=== PATIENT | male | born 1945 | race Caucasian/White ===

== ENCOUNTER 2016-08-21 10:35 | Inpatient (IN) | payer MEDICARE, OTHER ==
[~2016-08-21] VITALS: Ht 185.4 cm; Wt 57.8 kg
--- NOTE | ~2016-08-21 | DS ---
PATIENT'S NAME: ELVIS VICENTE [facility] AGE: 71 Y [address] ROOM: [address] [address] LOCATION: GPCU ADMIT DATE: 08/21/2016 Discharge Summary DISCHARGE DATE: 08/28/2016 FAMILY PHYSICIAN: Phoenix Ling PA-C ATTENDING PHYSICIAN: Jerry MARY PRIMARY DIAGNOSES: 1. Bhz-GV-xfowmfi elevation myocardial infarction. 2. End-stage chronic obstructive pulmonary disease exacerbation with acute pulmonary infection. 3. Left lower lobe pneumonia. 4. Acute urinary retention. 5. Hemoptysis. 6. Severe protein-calorie malnutrition. 7. Chronic hypoxic respiratory failure. 8. Benign prostatic hypertrophy. 9. Coronary artery disease, status post anomalous left circumflex stenting. PRINCIPAL PROCEDURES DONE FOR THE PATIENT: Includes central line placement as well as PCI by Dr. Hernadez stent in the anomalous left circumflex. LABORATORY STUDIES: On admission, troponin on admission was 0.249, highest level of troponin obtained was 0.336, highest CK-MB obtained was 8.0, and pro- BNP was 3778. Lactic acid on admission was 4.6, prior to discharge was 1.6. ABG on admission pH 7.40, pCO2 45, pO2 92, and bicarb 27.9. WBC on admission was 11.9, highest level obtained was 16.4, prior to discharge was 12.1; H and H on admission was 13.9/41.5, prior to discharge was 10.3/28.8, and platelet was 192, was stable throughout the hospital stay. Creatinine on admission was 1.3, prior to discharge was 0.7. Sodium on admission was 136, prior to discharge was 132; potassium on admission was 4.5, prior to discharge was 4.7; bicarb was 28, prior to discharge was 32; calcium was 8.7, prior to discharge was 7.9; magnesium on admission was 2.0, prior to discharge was 1.9. Procalcitonin was less than 0.05. MICROBIOLOGY: Sputum culture, moderate Anila, moderate growth, normal respiratory ronald. Urine for Legionella antigen negative. Urine for streptococcal antigen was negative. Blood culture x2 sets, no growth after 5 days. RADIOLOGY: Chest x-ray reported as severe bolus emphysema. Findings suspicious for localized pneumonia at the left costophrenic sulcus. CT of the chest reported as very severe emphysema, left basilar interstitial opacity, suspicious for pneumonia, right apical nodular masslike lesion adjacent to the pleura, fibrotic scarring most likely, and repeat CT of the chest on the day of discharge is reported as partial clearing at the left base since prior PATIENT'S NAME: ELVIS VICENTE [facility] AGE: 71 Y [address] ROOM: [place] [address] LOCATION: GPCU ADMIT DATE: 08/21/2016 Discharge Summary DISCHARGE DATE: 08/28/2016 FAMILY PHYSICIAN: Phoenix Ling PA-C ATTENDING PHYSICIAN: Jerry MARY imaging, severe emphysematous changes in the lung parenchyma. Echocardiogram showed the ejection fraction 65% to 70% with normal internal dimensional wall thickness and wall motion. Right atrium is mildly dilated. There is PA pressure of 52. Moderate tricuspid regurgitation. Left heart cath anomalous circumflex taken off from the RCA with 99% lesion and 50% proximal LAD. HOSPITAL COURSE: For history of present illness, please take a look at the H and P, which was done by Dr. Mary. The patient was admitted to Progressive Care Unit and was managed for uxg-LG-vnbjqjk elevation GA given his presentation of chest pain. However, there was also concern for probable COPD exacerbation as the patient has end-stage COPD who is chronically on 2 L of oxygen; so, he was started empirically on ceftriaxone and doxycycline and also put on a high-dose of Solu-Medrol. He did get a Cardiology consult; and after he was evaluated by Cardiology, he was started on heparin drip. By the next day of the hospital stay, the patient was taken into the [facility] for a left heart cath, which revealed a significant lesion in the anomalous left circumflex, which was stented. Procedure was well-tolerated by the patient without intraoperative or postoperative complication. The patient remained on his baseline 2 L of nasal cannula; however, his functional status was very poor, he easily got short of breath with minimal exertion, he did have physical therapy as well as occupational therapy on-board. We continued him on his Rocephin and doxycycline; and after hospital day 5, his IV Rocephin was discontinued and his doxycycline was switched to p.o. He did also get a Pulmonary consult because of his CT report which shows a questionable right apical mass, but after the patient was reviewed by Dr. White, he felt change is most probably due to scarring and nothing needed to be done. He was continued to followed up with Cardiology who put him on regular cardiac medication, which included Plavix, Lipitor, as well as Cardizem. At around hospital day 4, the patient did complain of thick sputum and he reported that usually at home that he takes Mucomyst which helps to break this up and help him to cough up his phlegm. He did receive Mucomyst here for at least 2 days, which helped with his phlegm. He did also have some streaks of blood in his sputum for approximately 2-3 days after which it resolved spontaneously. It was recommended for the patient given his poor physical ability that he would benefit from a pulmonary rehab; however, most of the skilled facilities available do not provide pulmonary rehab inpatient most is as outpatient; so, plan was for the patient to 1st get some strengthening at [facility] after which he will be discharged home; and thereafter, he will proceed from then to get pulmonary rehab as outpatient. On the day of discharge, the patient's vital signs were stable. He remained on his 2 L of nasal cannula. Usually, he saturates between 97% to 99% of oxygen and he was discharged to [facility]. Two days prior to discharge, the patient did develop some acute urinary retention for which he had to have a Tyler catheter placed and was discharged on the Tyler catheter and he also did get a Urology consult and was started on Flomax. PATIENT'S NAME: ELVIS VICENTE [facility] AGE: 71 Y [address] ROOM: [address] [place] [address] [facility] ADMIT DATE: 08/21/2016 Discharge Summary DISCHARGE DATE: 08/28/2016 FAMILY PHYSICIAN: Phoenix Ling PA-C ATTENDING PHYSICIAN: Jerry MARY DISCHARGE MEDICATIONS: Includes: 1. Aspirin 325 mg p.o. daily. 2. Lipitor 80 mg p.o. daily. 3. Plavix 75 mg p.o. daily. 4. Cardizem 120 mg p.o. daily, new medication. 5. Lisinopril 10 mg p.o. daily, dose change. 6. Humibid 600 mg p.o. twice daily. 7. Doxycycline 100 mg p.o. twice daily, stop on August 30, 2016 to make a total of 10 days of antibiotics. 8. Prednisone taper 40 mg p.o. q.a.m. to end on August 292016 thereafter is prednisone 30 mg p.o. daily for 5 days then 20 mg p.o. daily for 5 days then 10 mg p.o. daily for 5 days then 5 mg p.o. daily for 5 days then stop. 9. DuoNebs every 4 hours p.r.n. 10. Tylenol 650 mg p.o. q.4 h. p.r.n. 11. Tessalon 100 mg p.o. 3 times daily p.r.n. 12. Colace 100 mg p.o. twice daily p.r.n. 13. Nitrostat 0.4 sublingual as needed p.r.n. Discharge time spent on this patient is about 35 minutes, which included coordinating discharge plan with the care management and also touching base with the doctor who will be taking care of the patient at [facility], Dr. Robin. WIN PERALTA MD ODO/modl /[id number] d: 08/29/16 0040 t: 08/31/16 1413, DISCHARGE SUMMARY
--- NOTE | ~2016-08-21 | CATH ---
Cardiac Diagnostic + PCI Report Demographics Patient Name CINTHIA Ellington Gender Male Date of 1945 Age 71 year(s) Patient Number [id number] Date of Study 08/22/2016 Visit Number [id number] Room Number G6[address] [place] [id number] Ht 185.42 cm Wt 53.9 kg Referring Alexis Primary Physician Physician Valeria KIM Performing Alexis Secondary Physician Physician Valeria KIM Diagnostic Alexis Assisting Physician Physician Valeria KIM Interventional Alexis Physician Machinist Class B Physician Valeria KIM Findings and Conclusions Diagnostic Findings and Conclusion Calcification involving proximal coronary arteries LVEDP 7 Anomalous circumflex taking off from RCA with 90-99% lesion 50% Proximal LAD Diagnostic Recommendations PCI of Circumflex Interventional Findings and Conclusion PCI of Circumflex with 0% residual stenosis Interventional Recommendations Dual antiplatelet therapy for 1 year Aggressive secondary preventative measures. Procedure Description The patient was brought to the diagnostic cardiac catheterization-EP laboratory in the fasting, non-sedated state. Informed consent was obtained in the written and verbal form after the risks and benefits were explained. The patient had no further questions and agreed to proceed. The planned puncture-incision site(s) were shaved and prepped with ChloraPrep and draped in the usual sterile manner. Conscious sedation, supplemental oxygen, and pain control medications were delivered by a registered nurse under physician guidance. Surface ECG rhythm, blood pressure measurement, and pulse oximetry were monitored throughout the procedure. Arterial access. The access site was infiltrated with lidocaine. The vessel was entered with the Seldinger technique. A sheath was advanced into the vessel and used for catheter placement. Selective left coronary angiography. A catheter was advanced into the left coronary vessel ostium under Fluoroscopic guidance. Contrast was injected by hand. Images were obtained in multiple projections. Selective right coronary angiography. A catheter was advanced into the right coronary vessel ostium under fluoroscopic guidance. Contrast was injected by hand. Images were obtained in multiple projections. Left heart catheterization. A catheter was advanced across the aortic valve to the left ventricle under fluoroscopic guidance. Resting hemodynamics were obtained. Angioplasty and Stent Placement: A guiding catheter was used to intubate the vessel. A 0.14 wire was then used to cross the lesion. A balloon catheter was placed across the lesion and inflated. The balloon catheter was then removed. A Drug Eluting Stent was placed and inflated. Post placement angiograms were performed. Arterial artery hemostasis was achieved. The patient was transferred to a regular nursing floor via cart accompanied by a nurse. The patient left the laboratory in stable condition. Diagnostic Cath Status: Urgent Interventional Cath Status: Urgent Procedure Procedure Type Diagnostic procedure:Angiography:, Coronary Angios /[facility] PCI procedure:Drug Eluting Coronary Stent:, CFX, PTCA:, CFX Indications: Chest pain. The procedure was explained in detail to the patient. Risks, complications and alternative treatments were reviewed. Written consent was obtained. Medications Reviewed with Patient prior to Procedure. Angiographic Findings Dominance: Right Cardiac Arteries and Lesion Findings LMCA: Minor Luminal Irregularities.Luminal irregularities LAD: LAD mild diffuse disease Lesion on Prox LAD: 50% stenosis . LCx: Minor Luminal Irregularities.Circumflex arises from Proximal RCA with luminal irregularities. Lesion on Prox CX: Mid subsection.99% stenosis 24 mm length reduced to 0%. Pre procedure OMER III flow was noted. Post Procedure OMER III flow was present. The guidewire cross was successful.The lesion was diagnosed as a high risk lesion.Culprit lesion. Comments:90-99% lesion Devices used - Luge Wire .014 x 182. Number of passes: 1. - Emerge Balloon 2.0 x 15. 2 inflation(s) to a max pressure of: 10 afsaneh. - Promus Premier 2.25 x 24 Stent. 1 inflation(s) to a max pressure of: 15 afsaneh. RCA: Minor Luminal Irregularities.Luminal irregularities with spasm Coronary Tree Procedure Data Procedure Date Date: 08/22/2016Start: 02:24 PMEnd: 03:39 PM Entry Locations - Retrograde Percutaneous access was performed through the Right Radial artery (Primary location). A 6 Fr sheath was inserted. Unsuccessful closure attempt was performed using: an R band. Hemostasis was successfully obtained using Mechanical Compression. Closure Comments: 14 cc air in the R band. Procedure Medications Order and Administration + + + +---------+ !Time !Medication !Dosage !Route ! + + + +---------+ !08/22/2016 !Fentanyl !25 mcg !I.V. ! !02:20 PM ! ! ! ! + + + +---------+ !08/22/2016 !Versed !1 mg !I.V. ! !02:22 PM ! ! ! ! + + + +---------+ !08/22/2016 !AMK Radial Cocktail: Nitroglycerin ! !I.A. ! !02:27 PM !100mcg, Verapamil 3 mg, Lidocaine 40mg! ! ! ! !(ACC_3) ! ! ! + + + +---------+ !08/22/2016 !Heparin (ACC_3) !5000 units !I.V. ! !02:28 PM ! ! !bolus ! + + + +---------+ 08/22/2016 !0.9% NaCl !200 ml !I.V. ! !02:34 PM ! ! !bolus ! + + + +---------+ !08/22/2016 !Alfred-Synephrine (Phenylephrine) !50 mcg !I.V. ! !02:41 PM ! ! !bolus ! + + + +---------+ !08/22/2016 !Nitroglycerin !200 mcg !I.C. ! !02:44 PM ! ! ! ! + + + +---------08/22/2016 !0.9% NaCl !200 ml !I.V. ! !02:46 PM ! ! !bolus ! + + + +---------08/22/2016 !Integrilin (ACC_7) !10 mg !I.V. ! !02:58 PM ! ! !bolus ! + + + +---------+ !08/22/2016 !0.9% NaCl !200 ml !I.V. ! !03:00 PM ! ! !bolus ! + + + +---------+ !08/22/2016 !Integrilin (ACC_7) !10 mg !I.V. ! !03:07 PM ! ! !bolus ! + + + +---------+ !08/22/2016 !Plavix (ACC_8) !600 mg !P.O. ! !03:21 PM ! ! ! ! + + + +---------+ 08/22/2016 !Heparin (ACC_3) ! !I.V. ! !03:22 PM ! ! !bolus ! + + + +---------+ !08/22/2016 !Integrilin (ACC_7) !2 !I.V. drip! !03:23 PM ! !mcg/kg/min ! ! + + + +---------+ Devices Used - A6 Fr. BS JR 4 Diag. Catheterwas used for:Right coronary angiography. - A6 Fr. BS JL 3.5 Diag. Catheterwas used for:Left coronary angiography. - A6 Fr. MPA1 90 cm Guide Catheterwas used for:Circumflex Intervention. Contrast Material - Isovue [id number] ml Fluoroscopy Time: Diagnostic: 14:42 minutes. Total: 14:42 minutes. Fluoroscopy Dose: Diagnostic: 980 mGy. Total: 980 mGy. Estimated Blood Loss: 25 ml. Additional [facility] PCI Information PCI Indication:PCI for high risk Non-STEMI or unstable angina. Medical History Allergies - Other:(Ibuprofen, amoxicillin). Risk Factors The patient risk factors include:hypercholesterolemia, treated hypertension, chronic lung disease, last creatinine: 1.3 mg/dl, creatinine clearance: 40.89 ml/min, dyslipidemia, Current/Recent(w/in 1 year) tobacco use, prior heart failure and prior NE . Admission Data Admission Date: 08/21/2016 Admission Time: 12:31 PM Admit Source: Emergency department Insurance Payors: Medicare. Admission Medications + +------+------+ + + + + !Medication !Dosage!Times !Last !Last !Administered !Comments ! ! ! !Per !Delivery !Delivery ! ! ! ! ! !Day !Date !Time ! ! ! + +------+------+ + + + + !DOTTIE ! ! ! ! !Yes ! ! !Inhibitor ! ! ! ! ! ! ! !(any) ! ! ! ! ! ! ! + +------+------+ + + + + !Aspirin ! ! ! ! !Yes ! ! !(any) ! ! ! ! ! ! ! + +------+------+ + + + + Clinical Evaluation Leading to Procedure - The patient's CAD presentation was assessed as: Non-STEMI. - The patient's anginal syndrome during the past two weeks was assessed as: Class IV according to the [place] Cardiovascular Society Classification System (CCS). Hemodynamics Condition: Rest O2 Consumption: Estimated: 204.78Heart Rate: 78 bpm Pressures (mmHg) +-----+ + !Site !Pressure ! +-----+ + !LV !117/-1 ,5 ! +-----+ + !LV !119/-1 ,8 ! +-----+ + !AO !99/50 (70) ! +-----+ + !LV !118/-1 ,7 ! +-----+ + !AO !97/50 (70) ! +-----+ + !AO !80/40 (56) ! +-----+ + !AO !107/52 (75) ! +-----+ + !AO !105/49 (73) ! +-----+ + Valve Gradients and Areas + +---------+---------+---------+ +---------+ + !Valve !Peak !Mean !Area !Index !Flow !Source ! + +---------+---------+---------+ +---------+ + !Aortic !16 !8 ! ! ! ! ! + +---------+---------+---------+ +---------+ + !Aortic !16 !8 ! ! ! ! ! + +---------+---------+---------+ +---------+ + Shunts Oxygen Values O2 Consumption 204.78 Signatures dtt: Valeria Espinoza dtkm: 08/22/16 1424 Physician Self Edit
--- NOTE | ~2016-08-21 | ECHO ---
Transthoracic Echocardiography Report (TTE) Demographics Patient Name ELVIS VICENTE Date of Study 08/21/2016 Patient Number [id number] Visit Number [id number] Date of 1945 Room Number G6304 Gender Male Number Age 71 year(s) Referring Tyra Edwards Mortgage Loan Computation Clerk Marnie Mendes, Physician RT,RVT,RDCS Physician Interpreting Alexis Shaw MD Hotel Front Desk Agent Physician Supervising Ordering Tyra Edwards MD/MLP Physician Nurse Stress Circus Trainer Conclusions Contractility Score Summary Normal Left Ventricular contractility was noted. Summary The estimated left ventricular ejection fraction is 65-70% with normal internal dimension,wall thickness and WM. The right atrium is mildly dilated. Large pleural effusion present. There is moderate pulmonary hypertension. The pulmonary pressure (RVSP) is 52 mmHg. Moderate tricuspid regurgitation by color Doppler. Procedure Type of Study TTE procedure:2D Echocardiogram, M-Mode, Doppler , Color Doppler. Procedure Date Date: 08/21/2016 Start: 04:11 PM Study Location: Inpatient Portable Technical Quality: Limited visualization due to body habitus. Indications:Dyspnea/SOB. Additional Indications:pneumonia Appropriate Use Criteria: 9 Patient Status: Routine HR: 69 bpm BP: 149/78 mmHg Allergies - Other:(Ibuprofen, amoxicillin). M-Mode/2D Measurements LV Diastolic Dimension: 3.61 cm LV Systolic Dimension: 2.31 cm LV Septum Diastolic: 0.72 cm LV PW Diastolic: 0.78 cm EF Estimated: 70 % LVOT VTI: 18.9 cm RV Base: 3.9 cm RV Mid: 3.4 cm RV Length: 4.7 cm TAPSE: 1.7 cm Doppler Measurements AV Peak Velocity: 1.08 m/s MV Peak E-Wave: 1.1 m/s AV Peak Gradient: 4.67 mmHg MV Peak A-Wave: 0.44 m/s AV Mean Gradient: 2 mmHg MV E/A Ratio: 2.48 LVOT Peak Velocity: 0.8 m/s MV P1/2t: 69 msec TR Velocity:2.52 m/s Estimated RAP:10 mmHg Estimated RVSP: 35 mmHg Estimated PASP: 35.4 mmHg E' Septal Velocity: 0.08 m/s MV E/E' Ratio: 13.4 Findings Left Ventricle Normal left ventricle size and function. Right Ventricle Normal right ventricle structure and function. Left Atrium Normal left atrial size. Right Atrium The right atrium is mildly dilated. Mitral Valve Normal mitral valve structure and function. Aortic Valve Not well visualized. Velocities were within normal limits. Tricuspid Valve There is moderate pulmonary hypertension. The pulmonary pressure (RVSP) is 52 mmHg. Moderate tricuspid regurgitation by color Doppler. Pulmonic Valve Not visualized. Pericardial Effusion No evidence of pericardial effusion. Miscellaneous Visualized portions of the aortic root and ascending aorta appear normal in size. Pleural Effusion Large pleural effusion present. Contractility Score LV regional wall motion:(0-Non visualized 1-Normal 2-Hypokinesis 3-Akinesis 4-Dyskinesis 5-Aneurysm) Signature dtt: Valeria Espinoza dtd: 08/21/16 [id number] Physician Self Edit
--- NOTE | ~2016-08-21 | HP ---
PATIENT'S NAME: ELVIS VICENTE [facility] AGE: 71 Y [address] ROOM: [address] [place] [address] LOCATION: GPCU ADMIT DATE: 08/21/2016 History & Physical DISCHARGE DATE: FAMILY PHYSICIAN: Phoenix Ling PA-C ATTENDING PHYSICIAN: Jerry ALMAGUER DATE OF SERVICE: CHIEF COMPLAINT: Shortness of breath. HISTORY OF PRESENT ILLNESS: The patient is a 71-year-old gentleman with a history of COPD, hypertension, and tobacco abuse, who presents here with 1-week history of productive cough and difficulty breathing. The patient reports that for the past week or so he has been having cough. He reports that initially his cough was white, but now turning to green to yellow. Also reports of dyspnea on exertion. The patient also reports that his cough has increased from his baseline with increasing sputum production and change in color of sputum. He denies fever, chills, abdominal pain, nausea, vomiting, sick contacts, diarrhea, or chest pain. The patient is usually seen at the and gets his care there. He reports that he has had workup done in [place] for heart issues, but does not remember what it was and reports that he had a stress test done at one point in [place], but did not finish it due to his worsening of shortness of breath. Of note, the patient lives by himself at [place] and is retired. Does not and does not have kids. MEDICAL HISTORY: COPD and hypertension. PAST SURGICAL HISTORY: The patient has multiple sinus surgeries. FAMILY HISTORY: Father of old age. Mother had diabetes mellitus, type 2. Brother has macular degeneration. SOCIAL HISTORY: The patient has 50 pack year smoking history. He currently smokes. He lives in [place]. He lives by himself. He is retired from [employer]. PATIENT'S NAME: ELVIS VICENTE [facility] AGE: 71 Y [address] ROOM: [id number] [place], [place] [address] LOCATION: GPCU ADMIT DATE: 08/21/2016 History & Physical DISCHARGE DATE: FAMILY PHYSICIAN: Phoenix Ling PA-C ATTENDING PHYSICIAN: Jerry ALMAGUER CURRENT MEDICATIONS: Medications being reconciled. REVIEW OF SYSTEMS: All systems have been reviewed and are negative except for what I mentioned in the HPI. PHYSICAL EXAMINATION: VITAL SIGNS: The patient is afebrile. Blood pressure 141/69 with a heart rate of 83, and saturating 97% on 2 L. GENERAL APPEARANCE: The patient is alert and awake, in mild respiratory distress. CHEST: No wheezing. No rales. The patient have poor air movement. HEENT: Head; normocephalic and atraumatic. Eyes; extraocular muscles intact. Nose; no nasal discharge. Ears; no ear discharge. Oral cavity; moist oral mucosa. HEART: Regular rate and rhythm. No murmurs, rubs, or gallops. ABDOMEN: Soft, nontender, and nondistended. Bowel sounds present. SKIN: Warm to touch. EXTREMITIES: Bilateral +2 pitting edema. MUSCULOSKELETAL: Range of motion intact. PHARMACY TECHNICIAN ASSISTANT: The patient is alert and oriented x3. Motor and sensory grossly intact. LABORATORY DATA: Lactate of 4.6. Troponin of 0.249, BNP of 3778. White blood cell count of 11.9, hemoglobin of 13.9, and platelets of 199,000. Glucose of 110, BUN of 14, creatinine 1.3, sodium of 136, potassium 4.5, and CO2 of 28. INR of 1. D- dimer 0.50, within normal limits. Chest x-ray shows severe bullous emphysema. Finding suspicious for localized pneumonia at the left costophrenic sulcus. Initial EKG shows atrial flutter with rapid ventricular response with 2:1 block with a heart rate of 143. Second EKG shows normal sinus rhythm with LA interval of 180, QTc of [address] and T-wave changes, with possible right atrial enlargement. ASSESSMENT AND PLAN: 1. Atz-JD-uybyetgrt myocardial infarction. The patient with risk factors of male, age of 71, history of tobacco use, and history of hypertension, who presents here with atrial flutter with a rapid ventricular response and chronic obstructive pulmonary disease exacerbation. The patient currently denies chest pain, or history of chest pain, however, troponin was noted to be elevated at 0.2. Etiology is demand versus unstable PATIENT'S NAME: ELVIS VICENTE [facility] AGE: 71 Y [address] ROOM: [id number] [place], [place] [address] LOCATION: GPCU ADMIT DATE: 08/21/2016 History & Physical DISCHARGE DATE: FAMILY PHYSICIAN: Phoenix Ling PA-C ATTENDING PHYSICIAN: Jerry ALMAGUER. Discuss the patient about the use of anticoagulation, heparin, since the patient was also in atrial fibrillation at the moment. The patient declines use of anticoagulation. Discussed with the patient for extended period about the risks and benefits of blood thinner. The patient understands the risks including stroke and worsening of unstable plaque which can contribute for coronary artery disease and myocardial infarction. The patient understands the risks and still declines the use of anticoagulation. We will start the patient on aspirin. We will give full dose of aspirin 325, now. We will start the patient on Lipitor 80 mg daily. We will trend cardiac enzymes. We will consult Cardiology. We will acquire echocardiogram to further investigate heart structure and wall motion abnormalities. 2. Community-acquired pneumonia. The patient has been experiencing close to a week history of productive cough with sputum production. Chest x-ray shows possible localized interstitial opacity at the left costophrenic sulcus. We will start the patient on doxycycline and ceftriaxone. The patient currently on amiodarone drip for atrial fibrillation with rapid ventricular response, thus we will hold QTc elongation medication including Levaquin and Z-Loyd. We will acquire blood culture and we will trend lactate until it normalizes. Blood culture and sputum cultures are pending. We will acquire a CT chest without contrast to further investigate the severity of pneumonia. 3. Acute chronic obstructive pulmonary disease exacerbation. Etiology most likely secondary to community-acquired pneumonia. We will start the patient on Solu-Medrol 40 mg daily and DuoNeb q.4 hours. To continue Solu-Medrol and bronchodilator. We will start also the patient on doxycycline. 4. Atrial flutter with rapid ventricular response. The patient presented with atrial fibrillation with rapid ventricular response with heart rates in 140s. The patient was noted to have labile blood pressure in the 90s and was given 1 L of IV bolus that improved his labile blood pressure. The patient was started on amiodarone drip and was given digoxin 0.5 mg IV. The patient currently back to normal sinus rhythm. The patient converted spontaneously to normal sinus rhythm. We will continue amiodarone drip. TSH pending. D-dimer is negative. The patient as noted above has declined for anticoagulation. Cardiology on board. 5. Severe protein-calorie malnutrition. Consult dietitian. 6. A preliminary CT report showing a stellar scar of the right lung apex, concerning for malignancy. The patient has a significant history of smoking. The patient has risk factors including smoking and age. The patient has a history of 58 years of pack year smoking. To follow up as outpatient with CT. We will discuss this findings with the patient. Also we will see if the patient can be seen by mill dresser during this stay. 7. Hypertension. We will hold blood pressure medication for now as PATIENT'S NAME: ELVIS VICENTE [facility] AGE: 71 Y [address] ROOM: [place] [address] [facility] AD[facility] DATE: 08/21/2016 History & Physical DISCHARGE DATE: FAMILY PHYSICIAN: Phoenix Ling PA-C ATTENDING PHYSICIAN: Jerry ALMAUGER patient's blood pressure was labile on admission. 8. Elevated BNP and lower extremity edema. Chest x-ray did not show any signs of vascular congestion, and I suspect this worsening shortness of breath is most likely secondary to community-acquired pneumonia and chronic obstructive pulmonary disease exacerbation. However, this elevation of BNP and lower extremity edema are most likely secondary to severe pulmonary hypertension. We will hold diuretics for now as patient had somewhat labile blood pressure on admission and was also given IV fluids. We will hold IV fluids for now and acquire echocardiogram to further investigate. Cardiology on board and awaiting for echocardiogram. 9. Tobacco counseling, greater than 3 minutes and less than 10 minutes were spent on tobacco counseling. The patient currently is not ready for tobacco cessation. We will offer nicotine patch. I have personally reviewed the patient's medical record including but not limited to, blood work and radiology report. Total time spent with the patient is greater than 60 minutes, more than 50% of the time spent in direct patient's care and patient consultation. The case was reviewed with the patient. Questions were answered to patient's satisfaction. Case was also reviewed with Dr. Dumont, ED physician. We will admit the patient. Code status on admission is full code. ROSINAMD GA RICHARDS/sunday /[id number] D: [id number] T: [id number] HISTORY & PHYSICAL
--- NOTE | ~2016-08-21 | CON ---
PATIENT'S NAME: ELVIS JENKINS [facility] AGE: 71 Y [address] ROOM: [id number] [place], [place] [address] LOCATION: GPCU ADMIT DATE: 08/21/2016 Consultation DISCHARGE DATE: FAMILY PHYSICIAN: Phoenix Ling PA-C ATTENDING PHYSICIAN: Jerry MARY DATE OF CONSULTATION: 08/21/2016 REFERRING PHYSICIAN: Valeria Espinoza MD CARDIOLOGY CONSULTATION HISTORY OF PRESENT ILLNESS: Dear Dr. Mary: Thank you for asking me to see Mr. Elvis Jenkins, who is a 71-year-old male patient, who has had cough since 2011 and carries a diagnosis of emphysema for quite a bit longer than that. [facility] Lately, the cough has actually been better. Unfortunately, he still smokes a little bit. He lives alone at home and generally takes care of himself. He denies having any trouble with chest pain usually. He notices some soreness in his chest from constantly coughing, but otherwise does not have any actual chest pains. He has been in functional class 4 for the past 30 to 40 days or so. There is no paroxysmal nocturnal dyspnea. He has been orthopneic for the 30 to 40 days. All his breathing got worse last Thursday, today being . It was the worst yesterday, and today, he had to stop frequently when he was even walking inside the house, and his breathing got much worse after he went to the bathroom so he called 911 and was brought to the emergency room, and was found to have a heart rate in the 140s due to atrial flutter with rapid ventricular response. He had known that his heart was beating at 140 to 150 beats per minute, because he does check his oxygen level with a small oximeter which reads his heart rate. Today was the first time that he has known to have a very fast heartbeat at 140 to 150 beats per minute. There is no actual true syncope. Today morning though he did come close to passing out. His ankles have not been swelling up that much. He does not feel the palpitations even the heart rate is 140. The patient has a history of hypertension and tobacco abuse. He denies diabetes, elevated cholesterol, or family history of premature coronary artery disease. He denies ND or angina or nitroglycerin use. He denies rheumatic fever, heart murmur, heart failure, dilated or enlarged heart, or any diagnosed cardiac arrhythmias. PATIENT'S NAME: ELVIS JENKINS [facility] AGE: 71 Y [address] ROOM: [address] [place], [place] [address] [facility] AD[facility] DATE: 08/21/2016 Consultation DISCHARGE DATE: FAMILY PHYSICIAN: Phoenix Ling PA-C ATTENDING PHYSICIAN: Jerry MARY MEDICATIONS: 1. Lisinopril 20 mg a day. 2. Aspirin 325 mg a day. ALLERGIES: MOLD, MILDEW, HOUSE DUST, AND YELLOWJACKET. PAST MEDICAL HISTORY: 1. Colon surgery in 2005. 2. Sinus surgeries, the last one of them was in 1997. 3. COPD. SOCIAL HISTORY: The patient is single. He denies abusing alcohol. His appetite has been stable. He does not use any recreational drugs. Sleep is variable. Weight is variable. He lost about 50 pounds between 2011 to 2014, the etiology of which is unclear. FAMILY HISTORY: No premature coronary artery disease. REVIEW OF SYSTEMS: A 12-point review of systems revealed the following positives: 1. Migraine secondary to pinched nerve in his neck. 2. Shingles 2 weeks ago. PHYSICAL EXAMINATION: VITAL SIGNS: On examination, his blood pressure is 110 over 80s, heart rate is in the 70s and regular on IV amiodarone, which brought the heart rate down from 140 to 70 beats per minute. Respirations are 18 and afebrile. GENERAL: He is constantly coughing a little bit. HEENT: Normal. NECK: Supple. No JVD, thyromegaly, lymphadenopathy, or carotid bruit. HEART: PMI is not well located. First and second heart sounds are regular. There are no added sounds or murmurs. CHEST: Clear to auscultation. ABDOMEN: Soft. EXTREMITIES: Reveal no edema. CENTRAL NERVOUS SYSTEM: Intact. ASSESSMENT: A 71-year-old male patient with end-stage chronic obstructive pulmonary disease possibly secondary to alpha-1 antitrypsin deficiency. He has had much worse shortness of breath today which turned out to be due to atrial flutter with rapid ventricular response as well as end-stage chronic obstructive PATIENT'S NAME: ELVIS JENKINS [facility] AGE: 71 Y [address] ROOM: [place] [address] [facility] ADMIT DATE: 08/21/2016 Consultation DISCHARGE DATE: FAMILY PHYSICIAN: Phoenix Ling PA-C ATTENDING PHYSICIAN: Jerry MARY pulmonary disease. He may also have underlying congestive heart failure. RECOMMENDATIONS: 1. We will continue to rule him out. 2. Add a small dose of diuretics. 3. We will get his echocardiogram and read that. 4. We will plan as to what to do tomorrow morning based on his enzymes and his echocardiogram. 5. He has a clear-cut enzyme elevation and especially, if there are clear- cut regional wall motion abnormalities, he may benefit from a catheterization procedure. Again I appreciate this opportunity to participate in the care of Mr. Simpson. MD BON ARNOLD/sunday /[id number] d: 08/21/16 2332 t: 08/26/16 1350, CONSULTATION REPORT
--- NOTE | ~2016-08-21 | ER ---
PATIENT'S NAME: [facility] AGE: 71 Y [address] ROOM: [place] [address] LOCATION: GPCU ADMIT DATE: 08/21/2016 ER/Outpatient Report DISCHARGE DATE: FAMILY PHYSICIAN: Phoenix Ling PA-C ATTENDING PHYSICIAN: Jerry ALMAGUER TIME OF ARRIVAL: 10:35. TIME SEEN: 10:45. IDENTIFICATION: A 71-year-old male. CHIEF COMPLAINT: Illness. HISTORY OF PRESENT ILLNESS: The patient is a 71-year-old female, brought in by ambulance from [place]. He has had shortness of breath and cough for the last 5 days, worsening today. Cough has been productive of clear to light yellow sputum. He has felt chilled, but no fever. No chest pain. He does have COPD and wears home O2 at 2 L per nasal cannula. PAST MEDICAL HISTORY: ALLERGIES: MOTRIN AND AMOXICILLIN. CURRENT MEDICATIONS: 1. Albuterol inhaler 2 puffs 4 times daily. 2. Albuterol nebulizer q.4 hours as needed. 3. Aspirin 325 mg daily. 4. Lisinopril 20 mg daily. 5. Tiotropium 18 mcg daily. 6. Furosemide 20 mg daily. 7. Gabapentin 300 mg daily. 8. KCl 10 mEq daily. MEDICAL PROBLEMS: 1. COPD. 2. Hypertension. PRIOR SURGERIES: PATIENT'S NAME: [facility] AGE: 71 Y [address] ROOM: [place] [address] LOCATION: GPCU ADMIT DATE: 08/21/2016 ER/Outpatient Report DISCHARGE DATE: FAMILY PHYSICIAN: Phoenix Ling PA-C ATTENDING PHYSICIAN: Jerry ALMAGUER Bowel perforation. SOCIAL HISTORY: The patient goes to the [place] [facility]. He lives in [place]. Tobacco use, 5 cigarettes per day. Alcohol use, denies. Drug use, denies. FAMILY HISTORY: No pertinent family history identified. REVIEW OF SYSTEMS: All systems reviewed and negative other than what is noted in the HPI. The patient states that sometimes his blood pressure goes from being really high to really low, same with his heart rate he said sometimes it is fast and sometimes it is low. Cardiology workup has been negative in the past PHYSICAL EXAMINATION: VITAL SIGNS: Weight 54.1 kg, blood pressure 103/56, pulse 143, respirations 18, temp 97.1, sats 98% on his usual 2 L per nasal cannula. GENERAL: A 71-year-old male, in no acute distress. HEENT: Head: Normocephalic, atraumatic. Ears: TMs translucent both ears. Eyes: Pupils equal and reactive to light and accommodation. Extraocular movements intact. Nose: Mucosa pink. No lesions. Mouth: No lesions. Pharynx benign. NECK: Supple. No lymphadenopathy. No thyromegaly. No JVD. No carotid bruits. LUNGS: Clear to auscultation. Breath sounds are equal. No rhonchi, wheezes, or rales. HEART: Tachycardia. No murmur, rub, or gallop. ABDOMEN: Bowel sounds present. Soft, nondistended. No hepatosplenomegaly. No palpable masses. Nontender. SKIN: [place], warm, and dry. No lesions or rashes noted. NEURO: The patient is alert and oriented x4. Cranial nerves 2 through 12 grossly intact. Motor strength 5/5 throughout. Sensation is intact to light touch. EXTREMITIES: Lower extremity edema 2+. No calf tenderness. LABORATORY DATA AND DIAGNOSTIC STUDIES: EKG obtained at 11:04, sinus tachycardia versus atrial flutter at 143 beats per minute. In lead V1, it looks like sinus tachycardia, but in leads II and III, there does appear to possibly be some flutter waves. Sodium 136, potassium 4.5, chloride 98, CO2 of 28, BUN 14, creatinine 1.3, blood sugar 110. Magnesium 2.0. CPK 54, CK-MB 6.3. Troponin I 0.249. ProBNP 3778. Hemoglobin 13.9, hematocrit 41.5, platelets 199, white count 11.9 with 85% neutrophils. INR 1.06. D-dimer 0.50. Lactate elevated at 4.6. Procalcitonin less than 0.05. Chest x-ray, 2 view, changes of COPD and PATIENT'S NAME: ELVIS VICENTE [facility] AGE: 71 Y [address] ROOM: [place] [address] LOCATION: GPCU ADMIT DATE: 08/21/2016 ER/Outpatient Report DISCHARGE DATE: FAMILY PHYSICIAN: Phoenix Ling PA-C ATTENDING PHYSICIAN: Jerry ALMAGUER bilateral effusions with left basilar interstitial opacity, pending Radiology over-read. ER COURSE: Saline lock was initiated on this patient and his blood pressure was in the low 100s and normal saline bolus was given at 500 mL bolus, then 150 mL/h. I did discuss the EKG and cardiac enzymes with Dr. Espinoza, who recommended amiodarone 150 mg IV over 30 minutes, then 1 mg an hour for 6 hours, then 0.5 mg an hour for 18 hours. The patient then had an episode of hypotension with a blood pressure of 79, he was given an additional 200 mL fluid bolus and his blood pressure improved. He was given Solu-Medrol 40 mg IV for COPD and initially Levaquin was ordered for his infiltrate; however, when we made the decision to start the amiodarone, the Levaquin was held. Dr. Tyra Edwards requested a non contrasted chest CT, which was obtained showing very severe emphysema, left basilar interstitial opacities suspicious for pneumonia, right apical nodular mass-like lesion adjacent to the pleura, fibrotic scarring most likely cannot exclude developing malignancy. IMPRESSION AND PLAN: 1. Atrial flutter with rapid ventricular response. Amiodarone initiated in the emergency room. Digoxin given per Dr. Tyra Edwards 0.5 mg IV. The patient converted to normal sinus rhythm. Repeat EKG at 1349, normal sinus rhythm at 75 beats per minute. 2. Chronic obstructive pulmonary disease exacerbation. Solu-Medrol 40 mg IV. O2 at 2 L per nasal cannula. 3. Congestive heart failure. ProBNP 3778. 4. Zyu-ZN-azwdgfuso OR. Heparin was recommended. The patient refused heparin. The patient takes a full strength aspirin daily already. Dr. Espinoza will consult. 5. Pneumonia, left base. Antibiotics as ordered per Dr. Tyra Edwards. We will include doxycycline. 6. Right apical nodular mass-like lesion, fibrotic scarring versus developing malignancy. Dr. Tyra Edwards was notified. The patient arrived to the emergency room at 10:35 and was taken to [facility] at 1500. 50 minutes of critical care were provided in the emergency room. MD SALLY RIVERO/sunday /[id number] d: 08/22/16 0031 t: 09/22/16 1949, OUTPATIENT REPORT
--- NOTE | ~2016-08-21 | CON ---
PATIENT'S NAME: ELVIS VICENTE [facility] AGE: 71 Y [address] ROOM: [place] [address] LOCATION: GPCU ADMIT DATE: 08/21/2016 Consultation DISCHARGE DATE: 08/28/2016 FAMILY PHYSICIAN: Phoenix Ling PA-C ATTENDING PHYSICIAN: Jerry Mary DATE OF CONSULTATION: 08/21/2016 REFERRING PHYSICIAN: Valeria Espinoza MD HISTORY OF PRESENT ILLNESS: This is a 71-year-old gentleman with a history of chronic obstructive pulmonary disease, hypertension, and tobacco abuse, who presented to the emergency department with 1-week history of productive cough and difficulty breathing. The patient reports that for the past week or so, he has been having cough. He reports initially his cough was dry, but then turned into a productive cough, expectorating whitish to yellow sputum. He also reports dyspnea on exertion. The patient also reports that his cough has increased from the baseline. He admits to heaviness into his chest with exertion. The patient also has not been using his inhalers. He is not compliant with his therapy. He uses what he thinks is right for him. He denied any nausea, vomiting, abdominal pain, diarrhea, or chest pain. He did have a cardiac workup in [place], but he does not remember what came out of it. PAST MEDICAL HISTORY: 1. COPD. 2. Hypertension. PAST SURGICAL HISTORY: He had multiple sinus surgeries, otherwise unremarkable. FAMILY HISTORY: Father of old age. Mother had diabetes mellitus type 2. Brother has macular degeneration. SOCIAL HISTORY: He has a history of 70-dhio-vifw smoking. He currently smokes. He lives in [place]. He lives by himself. He is retired from [employer]. CURRENT MEDICATIONS: Please refer to the medication reconciliation. REVIEW OF SYSTEMS: PATIENT'S NAME: ELVIS VICENTE [facility] AGE: 71 Y [address] ROOM: [place] [address] LOCATION: GPCU ADMIT DATE: 08/21/2016 Consultation DISCHARGE DATE: 08/28/2016 FAMILY PHYSICIAN: Phoenix Ling PA-C ATTENDING PHYSICIAN: Jerry Mary A 10-point review of systems was done and otherwise negative other than mentioned in the history of presenting illness. PHYSICAL EXAMINATION: GENERAL: Upon initial evaluation, the patient is sitting in bed, comfortable, does not appear in acute distress. VITAL SIGNS: Included blood pressure is 140/85 with a heart rate of 85 and saturation is 96% on 2 L. HEENT: Eyes are nonicteric. Pupils are reactive to light and accommodation. NECK: Supple. No lymphadenopathy. No jugular venous distention. LUNGS: Decreased bilateral air entry with crackles at the bases. HEART: S1 and S2. No murmurs, rubs, or gallops. ABDOMEN: Soft. Nontender. No palpable organs. LOWER EXTREMITIES: No edema, clubbing, or cyanosis. SKIN: Warm and dry. NEUROLOGIC: Roughly intact cranial nerves. Moving all extremities. LABORATORY DATA: At the time of admission reveals lactate of 4.6, troponin 0.249, and BNP of 3778. His white cell count of 11.9, hemoglobin of 13.9, and platelets of 199. Glucose of 110, BUN of 14, creatinine of 1.3, sodium of 136, potassium of 4.5, and CO2 of 28. INR of 1 and D-dimer of 0.5, within normal limits. IMAGING: His chest x-ray shows severe bullous emphysema, findings suspicious for localized pneumonia and left costodiaphragmatic sulcus. CT scan of the chest was done, which revealed scarring of the upper lobes. The patient did have a history of nodule and was followed in [place], but the results on x-rays are not available to me at the current point. IMPRESSION: 1. Chronic obstructive pulmonary disease with acute exacerbation. 2. Hypoxic respiratory failure, acute on chronic. 3. Tobacco abuse. 4. Upper lobe nodule and possible scarring. RECOMMENDATIONS: 1. At the current point, I do recommend that the patient get IV steroids, although he says he is allergic to it, given the fact that the patient has been on steroids for the past 24 hours with no significant allergic reaction. 2. We will start the patient on DuoNeb. 3. We will start the patient on albuterol. 4. Aggressive pulmonary toilet. 5. Smoking cessation counseling. PATIENT'S NAME: ELVIS VICENTE [facility] AGE: 71 Y [address] ROOM: [id number] [place], [place] [address] LOCATION[facility] ADMIT DATE: 08/21/2016 Consultation DISCHARGE DATE: 08/28/2016 FAMILY PHYSICIAN: Phoenix Ling PA-C ATTENDING PHYSICIAN: Jerry Mary 6. We will compare the CT scan with the previous for further evaluation of the right upper lobe scarring. 7. We will also recommend that the patient start with early ambulation. 8. I would also recommend that the patient followup with his Pulmonary Critical Care doctor. 9. There is a possibility that the patient will also need rehabilitation. 10. Cardiology evaluation would be appreciated. Thank you for allowing me to participate in the care of this patient. MD DARIN PAL/sunday /[id number] d: 09/25/161 t: 09/28/16 0909, CONSULTATION REPORT
[2016-08-21 11:28] LABS: BASOPHIL # 0.1 K/uL (0.0-0.2); BASOPHIL % 0.4 %; EOSINOPHIL % 0.3 %; HEMATOCRIT 41.5 % (37.0-53.0); HEMOGLOBIN 13.9 g/dL (11.0-16.0); IMMATURE GRANULOCYTE # 0.1 K/uL (0.0-0.3); IMMATURE GRANULOCYTE % 0.5 %; LYMPHOCYTE # 0.8 K/uL (0.8-4.0); LYMPHOCYTE % 6.6 %; MCH 32.3 pg (27.0-34.0); MCHC 33.5 gm/dL (32.0-36.5); MCV 96.3 fl (83.0-98.0); MONOCYTE # 0.8 K/uL (0.0-1.0); MONOCYTE % 7.1 %; MPV 10.5 fl (9.4-12.4); NEUTROPHIL # (ANC) 10.1 K/uL (1.4-9.0); NEUTROPHIL % 85.1 %; NRBC % 0 /100WBC (0-0.00); PLATELET COUNT 199 K/uL (150-450); RBC 4.31 M/uL (3.50-5.50); RDW-CV 11.8 % (11.9-14.6); WBC 11.9 K/uL (4.0-11.0)
[2016-08-21 11:35] LABS: INR - (THERAPEUTIC) 1.06 (0.92-1.07); PROTIME 11.1 SECONDS (9.8-11.4); PTT 31 SECONDS (25-32)
[2016-08-21 11:55] LABS: ALBUMIN 3.3 gm/dL (3.5-5.0); ANION GAP 14.5 (10.0-19.0); CALCIUM 8.7 mg/dL (8.5-10.5); CREATININE 1.3 mg/dL (0.6-1.3); POTASSIUM 4.5 mMol/L (3.7-5.1); TOTAL BILIRUBIN 0.8 mg/dL (0.0-1.5); TOTAL PROTEIN 6.7 g/dL (6.0-8.4)
[2016-08-21 14:00] LABS: BICARBONATE 27.9 mmol/L (18.0-23.0); PCO2 45 mmHg (35-45); PO2 92 mmHg (80-90)
[2016-08-21] MEDS ORDERED: PRINIVIL (ZESTR20 MG PO (16:36)
[2016-08-21] MEDS ORDERED: ASPIR-TRIN325 MG PO (16:37)
--- NOTE | 2016-08-21 17:34 | NUR ---
Pt is 71 y/o male admit for pneumonia/CHF/nonstemi for hospitalist. Pt alert and oriented x3. Resides at home by himself. Allergy to ibuprofen and amoxicillin. Red and yellow bracelets on. Pt has frequent harsh,hacking non productive cough. Long time smoker and current. 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 On IV antibiotics and IV fluids.
--- NOTE | 2016-08-21 19:01 | NUR ---
Significant Event:pt arrived from er this afternoon. AMIO drip at 1mg/kg/hr x6h lower at 1930 to .5mg/kg/hr. Pt has hacking cough, need sputum. Need UA. No c/o pain. Pt a&ox3. Pt voided this am, BM yest. Hourly bps. 02 2liters as at home. Antibiotics started. Dr Hernadez here and Dr White to see is notified. Follow up:
--- NOTE | 2016-08-22 05:20 | NUR ---
Significant Event: AMIODARONE GTT CONTINUES. HEPARIN GTT STARTED AT 600 UNITS/HR. REMAINS ON 2L O2 ALL NIGHT. HAS A BIG APPETITE OVERNIGHT. HEART RHYTHM REMAINS NSR ALL NIGHT. 20MG IV LASIX GIVEN AND ONLY 125ML OF UO NOTED. Follow up:
--- NOTE | 2016-08-22 15:48 | NUR ---
Attempted to see patient for DALTON Lopez, but staff had just finished a heart cath on him and were still in the room with him. Attempted to call patient's nurse Miaa to see if any family members are here with him, but she did not answer. Will try to meet with patient and or family if available.
--- NOTE | 2016-08-22 19:40 | NUR ---
PATIENT WENT DOWN FOR A HEART CATH TODAY RECIEVED ONE STENT RT WRIST ACCESSED. HEMATOMA WAS PRESENT UPON ARRIVAL PATIENT FINANCIAL COUNSELOR STAFF HELPED TO REDUCED HEMATOMA AND READJUST TR BAND. PATIENT WAS INSTRUCTED TO NOT USE RIGHT ARM.
[2016-08-23 03:28] LABS: HEMOGLOBIN 9.5 g/dL (11.0-16.0); MCV 94.5 fl (83.0-98.0); MPV 10.8 fl (9.4-12.4); RDW-CV 11.8 % (11.9-14.6)
[2016-08-23 03:30] LABS: HEMATOCRIT 27.3 % (37.0-53.0); MCH 32.9 pg (27.0-34.0); MCHC 34.8 gm/dL (32.0-36.5); PLATELET COUNT 142 K/uL (150-450); RBC 2.89 M/uL (3.50-5.50); WBC 16.4 K/uL (4.0-11.0)
[2016-08-23 03:47] LABS: ALBUMIN 2.5 gm/dL (3.5-5.0); ALK PHOS 64 IU/L (33-138); ALT 17 IU/L (12-78); ANION GAP 11.8 (10.0-19.0); AST 15 IU/L (10-40); BLOOD UREA NITROGEN 16 mg/dL (6-24); CALCIUM 7.6 mg/dL (8.5-10.5); CHLORIDE 102 mMol/L (96-110); CO2 26 mMol/L (22-32); ESTIMATED GFR (MDRD EQUATION) > 60; POTASSIUM 3.8 mMol/L (3.7-5.1); SODIUM 136 mMol/L (135-145); TOTAL PROTEIN 5.1 g/dL (6.0-8.4)
[2016-08-23 03:48] LABS: TOTAL BILIRUBIN 0.3 mg/dL (0.0-1.5)
[2016-08-23 04:49] LABS: ABSOLUTE NEUTROPHIL CT (ANC) 14.9 K/uL (1.4-9.0); BANDED NEUTROPHIL # 0.7 K/uL (0.0-0.1); BANDED NEUTROPHILS % 4 %; LYMPHOCYTE # 0.5 K/uL (0.8-4.0); LYMPHOCYTE % 3 %; SEGMENTED NEUTROPHIL # 14.3 K/uL (1.4-9.0); SEGMENTED NEUTROPHIL % 87 %
--- NOTE | 2016-08-23 05:15 | NUR ---
Significant Event:A/0X3. RESTED IN BED ALL OF SHIFT. TURNS SELF. AFEBRILE. VSS ON 2L. DENIES PAIN. IV TO L) HAND SL. SHUT OFF INTEGRILLIN AT 0300. R) RADIAL BRUSIED. SOFT. NO HEMATOMA. CSM WNL. GADEMARCUS AND MARICARMEN C/D/I. COLLINS PRESENT WITH 450 MLS OUT. NO BM THIS SHIFT. CONTINUE WITH IV ANTIBIOTICS. Follow up: CONTINUE WITH PLAN OF CARE.
--- NOTE | 2016-08-23 15:36 | NUR ---
Significant Event: A/O. VSS on home dose of 2L/NC. Denies pain. Up with 1 assist, SOB with activity. R) radial site remains ecchymotic but soft with 2+ radial pulse. Tyler to DD. 40 meq PO KCl given x1. Cardizem PO started today. Follow up: cont plan of care
[2016-08-24 03:53] LABS: BASOPHIL % 0.1 %; HEMATOCRIT 29.2 % (37.0-53.0); IMMATURE GRANULOCYTE # 0.1 K/uL (0.0-0.3); IMMATURE GRANULOCYTE % 0.7 %; LYMPHOCYTE # 0.6 K/uL (0.8-4.0); LYMPHOCYTE % 3.5 %; MCH 32.8 pg (27.0-34.0); MCHC 34.2 gm/dL (32.0-36.5); MCV 95.7 fl (83.0-98.0); MONOCYTE % 6.5 %; NEUTROPHIL # (ANC) 14.4 K/uL (1.4-9.0); NEUTROPHIL % 89.2 %; NRBC % 0 /100WBC (0-0.00); PLATELET COUNT 154 K/uL (150-450); RBC 3.05 M/uL (3.50-5.50); RDW-CV 12.2 % (11.9-14.6)
[2016-08-24 03:59] LABS: WBC 16.1 K/uL (4.0-11.0)
[2016-08-24 04:03] LABS: ANION GAP 10.8 (10.0-19.0); BLOOD UREA NITROGEN 14 mg/dL (6-24); CALCIUM 8.2 mg/dL (8.5-10.5); CHLORIDE 99 mMol/L (96-110); CO2 29 mMol/L (22-32); CREATININE 0.9 mg/dL (0.6-1.3); ESTIMATED GFR (MDRD EQUATION) > 60; MAGNESIUM 1.7 mg/dL (1.8-2.6); SODIUM 134 mMol/L (135-145)
[2016-08-24 04:04] LABS: POTASSIUM 4.8 mMol/L (3.7-5.1)
--- NOTE | 2016-08-24 05:35 | NUR ---
Significant Event: A/0X3. UP IN CHAIR BEGINNING OF SHIFT. TURNS SELF. AFEBRILE. VSS ON RA. IV TO L) HAND SL. PATIENT HAD C/O OF PAIN TO THE L) RIB AFTER COUGHING BUT REFUSED TYLENOL. PATIENT COUGHED UP A VERY SCANT AMOUNT OF BLOOD X1. PATIENT HAS RESTED OFF AND ON THIS SHIFT. GUADALUPE PATENT WITH 2,300 MLS OUT. NO BM THIS SHIFT. Follow up: CONTINUE WITH PLAN OF CARE
--- NOTE | 2016-08-24 15:36 | NUR ---
Significant Event: A/O. VSS on 2L. Denies pain. Up with 1 assist to chair, refused to ambulate in halls. Mucomyst started to help loosen secretions. Patient main complaint now is dry mouth. Popsicle and ice chips provided. Pulmonary rehab order today and CM to find placement to swingbed. Follow up: possible dismissal tomorrow or Thursday pending placement.
[2016-08-25 03:36] LABS: BASOPHIL % 0.1 %; HEMATOCRIT 29.6 % (37.0-53.0); HEMOGLOBIN 10.2 g/dL (11.0-16.0); IMMATURE GRANULOCYTE # 0.1 K/uL (0.0-0.3); IMMATURE GRANULOCYTE % 0.9 %; LYMPHOCYTE # 0.5 K/uL (0.8-4.0); LYMPHOCYTE % 3.6 %; MCH 32.6 pg (27.0-34.0); MCHC 34.5 gm/dL (32.0-36.5); MCV 94.6 fl (83.0-98.0); MONOCYTE # 1.1 K/uL (0.0-1.0); MONOCYTE % 8.2 %; MPV 10.8 fl (9.4-12.4); NEUTROPHIL % 87.2 %; NRBC % 0 /100WBC (0-0.00); PLATELET COUNT 173 K/uL (150-450); RBC 3.13 M/uL (3.50-5.50); RDW-CV 12.2 % (11.9-14.6); WBC 13.8 K/uL (4.0-11.0)
[2016-08-25 03:51] LABS: ANION GAP 12.4 (10.0-19.0); BLOOD UREA NITROGEN 13 mg/dL (6-24); CALCIUM 7.8 mg/dL (8.5-10.5); CHLORIDE 97 mMol/L (96-110); CO2 27 mMol/L (22-32); CREATININE 0.7 mg/dL (0.6-1.3); ESTIMATED GFR (MDRD EQUATION) > 60; POTASSIUM 4.4 mMol/L (3.7-5.1); SODIUM 132 mMol/L (135-145)
--- NOTE | 2016-08-25 05:40 | NUR ---
Significant Event: A/0X3. AFEBRILE. VSS ON 2L. GETS SOB WITH ACTIVITY. DENIES PAIN. IV TO L) FA SL. CONTINUE WITH IV ANTIBIOTICS. COLLINS PRESENT WITH 2350 MLS OUT. NO BM THIS SHIFT. PULMONARY REHAB TO SEE TODAY. Follow up: CONTINUE WITH PLAN OF CARE
--- NOTE | 2016-08-25 17:25 | NUR ---
Dr. Felton talked with me earlier today and he says patient needs to go to skilled facility where he can do pulm. rehab. VMM left for Adm Coord at [place] . Call back from [facility] at [place] and they do not have pulm rehab. Talked to patient this afternoon regarding the above. He lives alone near [place]. He says OK to look in the [facility] area. He nows he needs to go to a facility for awhile and work on pulm rehab. Will continue to make referrals. Will follow.
--- NOTE | 2016-08-25 19:23 | NUR ---
PATIENT UP TO CHAIR W/ 1 ASSIST. HAD EPISODE OF SEVERE DYSPNEA THIS AM, SBP 200'S. PATIENT RECEIVED BREATHING TREATMENT AND DR PERALTA ROUNDED ON PATIENT AT THAT TIME. RECHECK BP 155/76, SATS MAINTAINED GREATER THAN 90% AND PATIENT CONTINUED ON 2L NC. IV ANTIBIOTICS CHANGED TO PO. LABS ORDERED FOR AM.
[2016-08-26 04:42] LABS: HEMATOCRIT 30.4 % (37.0-53.0); HEMOGLOBIN 10.5 g/dL (11.0-16.0); IMMATURE GRANULOCYTE # 0.1 K/uL (0.0-0.3); IMMATURE GRANULOCYTE % 0.9 %; LYMPHOCYTE # 0.7 K/uL (0.8-4.0); LYMPHOCYTE % 5.9 %; MCH 32.5 pg (27.0-34.0); MCHC 34.5 gm/dL (32.0-36.5); MCV 94.1 fl (83.0-98.0); MONOCYTE # 0.8 K/uL (0.0-1.0); MONOCYTE % 7.1 %; MPV 10.7 fl (9.4-12.4); NEUTROPHIL # (ANC) 9.6 K/uL (1.4-9.0); NEUTROPHIL % 86.1 %; NRBC % 0 /100WBC (0-0.00); PLATELET COUNT 199 K/uL (150-450); RBC 3.23 M/uL (3.50-5.50); WBC 11.1 K/uL (4.0-11.0)
[2016-08-26 05:02] LABS: ANION GAP 8.7 (10.0-19.0); BLOOD UREA NITROGEN 11 mg/dL (6-24); CALCIUM 7.9 mg/dL (8.5-10.5); CHLORIDE 96 mMol/L (96-110); CO2 32 mMol/L (22-32); CREATININE 0.7 mg/dL (0.6-1.3); ESTIMATED GFR (MDRD EQUATION) > 60; MAGNESIUM 1.9 mg/dL (1.8-2.6); POTASSIUM 4.7 mMol/L (3.7-5.1); SODIUM 132 mMol/L (135-145)
--- NOTE | 2016-08-26 05:12 | NUR ---
Significant Event: Continues to be alert and oriented. VSS. Afebrile. 2L NC. productive cough continues. Up with 1 assist. Rested at times. Cooperative with cares. Follow up: Continue to monitor
--- NOTE | 2016-08-26 10:53 | NUR ---
A - PT SCREENED D/T LOS. NA+ 132, GLU 102, BUN/CALENDERER 11/0.7. PT W/ 1-2+ BLE EDEMA. DIET: CARDIAC, REFUSED TO 50% PER INTAKE RECORD ALTHOUGH PT REPORTS EATING EVERYTHING. PT DISLIKES CARDIAC DIET, REQUESTS CHANGE TO REGULAR. NFPE REVEALS SEVERE MUSCLE WASTING TO TEMPLES, CLAVICLES, SCAPULA AND MODERATE TO CALVES. SEVERE FAT WASTING TO FAT PADS AND TRICEPS. FINDINGS CONSISTENT W/ SEVERE MALNUTRITION. PT RECEPTIVE TO ENSURE TID. D - AT RISK W/ SEVERE MALNUTRITION R/T INADEQUATE ENERGY AND PROTEIN INTAKE AEB RESULTS OF NFPE. I - GOAL: 75% OR BETTER INTAKE BY DISMISSAL. M/E - 1) REQUESTED DIET BE LIBERALIZED TO REGULAR. 2) WILL SEND ENSURE TID W/ MEALS. 3) F/U IN 2-4 DAYS.
--- NOTE | 2016-08-26 15:22 | NUR ---
Talked to peers and facilities and skilled facilities do not offer pulm. rehab. Patient would be able to have therapies and monitoring of O2 sats with activity if ordered by physician. Talked to Dr. Felton and updated him. Will look at skilled facilities. Spoke with Kinjal at [facility] and they would be willing to consider him but needs to know which Dr. he would want to follow him. Talked to patient and he says he prefers to not have certain Drs at [place] follow him. After discussion of options with him, he says he prefers to go to a skilled facility in [place] and have [place] Drs follow him. Gave him choices of [place] facilities and he says to start with [facility]. Called and spoke with Joya at [facility] and referral faxed to them. Will follow.
--- NOTE | 2016-08-27 04:59 | NUR ---
Patient A/Ox3. VSS on 2L per home settings. One assist. IV to rt forearm saline locked. Lungs clear/diminished. Bowel sounds present, 1 BM this shift. No complaints. Voiding well since orona DC'd. Home vs placement.
[2016-08-27 05:53] LABS: EOSINOPHIL # 0.1 K/uL (0.0-0.5); EOSINOPHIL % 0.4 %; HEMATOCRIT 31.9 % (37.0-53.0); IMMATURE GRANULOCYTE # 0.1 K/uL (0.0-0.3); IMMATURE GRANULOCYTE % 0.6 %; LYMPHOCYTE % 8.4 %; MCH 32.2 pg (27.0-34.0); MCHC 34.5 gm/dL (32.0-36.5); MCV 93.3 fl (83.0-98.0); MONOCYTE # 1.1 K/uL (0.0-1.0); MONOCYTE % 8.6 %; NEUTROPHIL # (ANC) 10.2 K/uL (1.4-9.0); NRBC % 0 /100WBC (0-0.00); PLATELET COUNT 212 K/uL (150-450); RBC 3.42 M/uL (3.50-5.50); RDW-CV 11.9 % (11.9-14.6); WBC 12.4 K/uL (4.0-11.0)
--- NOTE | 2016-08-27 15:00 | NUR ---
Spoke with Joya at [facility] this a.m. and she now says they do not have any male beds. Called the other 3 [facility] and [facility] and [facility] both have male beds. Referrals faxed to both of them and both say they will be up to assess him. Spoke with patient and updated him. He thinks he will prefer [facility] based on location but is not sure. Did receive a call from Gayle at [facility] and they will accept him pending getting a [place] physicia set up to follow him while at their facility. VMM left for Carmen LEMUS with hospitalists to assist with getting [place] physician set up. Will follow.
--- NOTE | 2016-08-27 18:03 | NUR ---
Significant Event: Patient A/O x 3. Up with 1A. VSS on 2L continuous (home dose). LFA PIV SL. Reported that he could not void today so straight cathed around 1415 and had 900 out. Will continue to closely monitor. Patient reported comfort after this was done. Denies any other pain throughout the day. Follow up: Continue as per plan of care. Awaiting placement.
--- NOTE | 2016-08-28 04:28 | NUR ---
A/O. HR 60-80s. SBP 100-120s. 2L NC HOME O2. GUADALUPE PLACED WITH 2140ML OUT. UNMANAGABLE RETENTION. UROLOGY CONSULT FOR AM. DENIES PAIN. NO BM. WAITING PLACEMENT.
[2016-08-28 04:56] LABS: BASOPHIL % 0.1 %; EOSINOPHIL # 0.1 K/uL (0.0-0.5); EOSINOPHIL % 0.5 %; HEMATOCRIT 28.8 % (37.0-53.0); HEMOGLOBIN 10.3 g/dL (11.0-16.0); IMMATURE GRANULOCYTE # 0.1 K/uL (0.0-0.3); IMMATURE GRANULOCYTE % 0.7 %; LYMPHOCYTE # 0.9 K/uL (0.8-4.0); LYMPHOCYTE % 7.5 %; MCH 33.1 pg (27.0-34.0); MCHC 35.8 gm/dL (32.0-36.5); MCV 92.6 fl (83.0-98.0); MPV 10.3 fl (9.4-12.4); NEUTROPHIL % 83.2 %; NRBC % 0 /100WBC (0-0.00); PLATELET COUNT 208 K/uL (150-450); RBC 3.11 M/uL (3.50-5.50); RDW-CV 11.8 % (11.9-14.6); WBC 12.1 K/uL (4.0-11.0)
--- NOTE | 2016-08-28 09:17 | NUR ---
A - NUTRITION F/U. NO NEW LABS. DIET: CARDIAC W/ ENSURE TID. INTAKE IMPROVED TO 100%. AWAITING PLACEMENT. D - AT RISK W/ SEVERE MALNUTRITION R/T HX OF INADEQUATE ORAL INTAKE AEB RESULTS OF NFPE (SEE 08/26 NOTE). INTAKE ADEQUATE AT THIS TIME. I - GOAL: 75-100% INTAKE UNTIL DISMISSAL. M/E - WILL F/U IN 3-5 DAYS.
--- NOTE | 2016-08-28 14:00 | NUR ---
Call this a.m. from Monica at [facility] and they can't accept him. Several calls this a.m. with Gayle from [facility] and they can accept patient today pending having a physician to accept him. They suggest Dr. Aplpe Mckeon as he is their medical care evaluation specialist. Dr. Felton attempted to contact Dr. Mckeon and left a message. Had not heard back from him by early afternoon, so Dr. Felton contacted Dr. Milian and he agreed to follow patient while at [facility]. Talked to Gayle at [facility] and they will pick him up around 1430. Patient in agreement with plan. Patient to transfer to [facility] today.
--- NOTE | 2016-08-28 14:14 | NUR ---
Transfer Note: VSS on room air. A/Ox3. Lungs clear diminished. Dyspenic with exertion. Tyler draining yellow urine 1050ml out this shift. Tyler to stay in until appointment with Urology in 2 weeks for retention. Up with 1A/walker. R) wrist heart cath site is Eccymotic all the way up the arm. Improving. No hematoma. CMS WNL. Pleasant and coooperative with cares.
== END 2016-08-28 14:53 | DRG 853 ==
LOC: GMED 10:35 → GPCU 12:31
PROVIDERS: Family Medicine; Hospitalist; Internal Medicine Interventional Cardiology; ADMIT Internal Medicine
DX: A41.9 Sepsis, unspecified organism (principal); I21.4 Non-ST elevation (NSTEMI) myocardial infarction; J96.20 Acute and chronic respiratory failure, unspecified whether with hypoxia or hypercapnia; I11.0 Hypertensive heart disease with heart failure; E43 Unspecified severe protein-calorie malnutrition; J18.9 Pneumonia, unspecified organism; I50.9 Heart failure, unspecified; J44.1 Chronic obstructive pulmonary disease with (acute) exacerbation; I48.92 Unspecified atrial flutter; Z68.1 Body mass index [BMI] 19.9 or less, adult; E83.42 Hypomagnesemia; F17.210 Nicotine dependence, cigarettes, uncomplicated; I25.10 Atherosclerotic heart disease of native coronary artery without angina pectoris
CPT/HCPCS: C1725; C1769; C1874; C1887; C1894; C9600; J0282; J0696; J1160; J1327; J1644; J1940; J1956; J2250; J2370; J2920; J3010; J3475; J7030; J7040; J7050; J7060; J7512

== ENCOUNTER 2016-09-22 18:17 | Inpatient (IN) | payer MEDICARE, OTHER ==
[~2016-09-22] VITALS: Ht 185.4 cm; Wt 55.8 kg
--- NOTE | ~2016-09-22 | DS ---
PATIENT'S NAME: LISBETH VICENTEER Rakel [facility] AGE: 71 Y [address] ROOM: [place] [address] LOCATION: [facility] ADMIT DATE: 09/22/2016 Discharge Summary DISCHARGE DATE: 09/25/2016 FAMILY PHYSICIAN: Pedro Robin MD ATTENDING PHYSICIAN: Lauren Weller PRINCIPAL DIAGNOSES: 1. Acute on chronic respiratory failure with hypoxia. 2. Chronic obstructive pulmonary disease exacerbation. 3. Essential hypertension. 4. Severe protein-calorie malnutrition. BRIEF HOSPITAL COURSE: Please refer to the admit H and P for full history of initial presentation. This is a 71-year-old male with a known history of COPD and chronic respiratory failure on 2 to 3 L of oxygen 13/10. He presents with worsening shortness of breath, dyspnea on exertion, and admitted for management of COPD exacerbation. On initial evaluation, there were no clear signs of infectious process noted to explain exacerbation. The patient was treated symptomatically with aggressive pulmonary treatments with DuoNeb and steroids and continued to improve. The patient today still has on and off coughing spells that trigger respiratory distress but overall is stable. At this point, we will continue the patient on prednisone 40 mg daily for 4 more days. The patient is to follow up with Pulmonary Clinic in the next 1 to 2 weeks, and I have recommended at that time that he would need evaluation and be set up to participate in pulmonary rehabbing. PHYSICAL EXAMINATION: GENERAL: The patient is awake, alert, and oriented x3, in no acute distress. CHEST: Diminished breath sounds diffusely, no wheezing. HEART: S1, S2, regular rate and rhythm. ABDOMEN: Soft, nontender, nondistended. EXTREMITIES: Without edema. MEDICATIONS: Continue his home medications including prednisone 40 mg daily for 4 more days. DISPOSITION: Back to [facility]. Less than 30 minutes spent in discharge planning and facilitating. MD CHRIS MARTÍNEZ/sunday [facility]: [facility]GE[facility] 71 Y [address] ROOM: [place] [address] LOCATION: [facility] ADMIT DATE: 09/22/2016 Discharge Summary DISCHARGE DATE: 09/25/2016 FAMILY PHYSICIAN: Pedro Robin MD ATTENDING PHYSICIAN: Lauren Weller /[id number] d: 09/26/16 0336 t: 09/29/16 1520, DISCHARGE SUMMARY
--- NOTE | ~2016-09-22 | HP ---
PATIENT'S NAME: LISBETH VICENTEER Rakel [facility] AGE: 71 Y [address] ROOM: [place] [address] LOCATION: [facility] ADMIT DATE: 09/22/2016 History & Physical DISCHARGE DATE: FAMILY PHYSICIAN: MICHAEL LINDSAY MD ATTENDING PHYSICIAN: KLARISSA WATKINS DATE OF SERVICE: CHIEF COMPLAINT: Shortness of breath. HISTORY OF PRESENT ILLNESS: A 71-year-old gentleman with a past medical history of severe COPD, as well as coronary artery disease, who presented to the emergency department from a nursing facility with increasing shortness of breath over the past couple of days with greenish-yellow sputum production without any chills or fever. He denied any headache, any trouble with the eyes, any trouble swallowing, any chest pain, any abdominal pain, any burning on urination, or any extremity swelling. REVIEW OF SYSTEMS: All other systems reviewed and were negative except what is mentioned in the HPI. ALLERGIES: THE PATIENT IS ALLERGIC TO AMOXICILLIN WELL IBUPROFEN. PREVIOUS MEDICAL HISTORY: 1. COPD. 2. Hypertension. 3. Coronary artery disease. FAMILY HISTORY: Significant for type 2 diabetes mellitus in mother. SOCIAL HISTORY: Currently smoker, 50 pack-year smoking history. MEDICATIONS: Being reconciled right now. PHYSICAL EXAMINATION: VITAL SIGNS: Blood pressure 139/60, pulse 62, respiratory rate of 22, and saturating 99% on 3 L oxygen. GENERAL: In mild acute distress due to shortness of breath. Alert and PATIENT'S NAME: LISBETH VICENTEER Rakel [facility] AGE: 71 Y [address] ROOM: [place] [address] LOCATION: [facility] ADMIT DATE: 09/22/2016 History & Physical DISCHARGE DATE: FAMILY PHYSICIAN: MICHAEL LINDSAY MD ATTENDING PHYSICIAN: KLARISSA WATKINS oriented x3. HEENT: Head; atraumatic and normocephalic. Eyes; nonicteric. No pallor. CARDIOVASCULAR: S1 and S2. No murmurs, gallops, or rubs. LUNGS: Bilateral reduced air entry without any crepitations. Positive expiratory wheezes. ABDOMEN: Soft, nontender, and nondistended. Bowel sounds present. EXTREMITIES: No clubbing, cyanosis, or edema. PSYCHIATRIC: Normal affect, mood, and speech. NEUROLOGIC: Cranial nerves 2 through 12 intact. No motor or sensory deficit. MUSCULOSKELETAL: No muscle tenderness or joint swelling noted. LABORATORY DATA: Laboratory work in the emergency department was reviewed and was pretty unremarkable. Verbal report regarding the chest x-ray was negative for any pneumonia. ABG is pending at this point. ASSESSMENT AND PLAN: 1. Acute on chronic hypoxic respiratory failure. 2. Chronic obstructive pulmonary disease exacerbation. 3. Hyponatremia likely secondary to hypovolemia. 4. Coronary artery disease. 5. Hypertension. Plan: We are going to admit this patient. Continue supplemental oxygen and DuoNeb. We will start Solu-Medrol as well as salmeterol as well. We will monitor the ABG. We will give intravenous fluid resuscitation and monitor the sodium. I will continue home medication of blood pressure. The patient is full code. MD MATHEW SALMON/sunday /[id number] D: [id number] T: [id number] HISTORY & PHYSICAL
--- NOTE | ~2016-09-22 | ER ---
PATIENT'S NAME: ELVIS VICENTE [facility] AGE: 71 Y [address] ROOM: [place] [address] LOCATION: [facility] [place] ADMIT DATE: 09/22/2016 ER/Outpatient Report DISCHARGE DATE: FAMILY PHYSICIAN: MICHAEL LINDSAY MD ATTENDING PHYSICIAN: KLARISSA WELLER Time of Arrival: 1817 hours. Time of Evaluation: 1820 hours. IDENTIFICATION: A 71-year-old male. CHIEF COMPLAINT: Difficulty breathing. HISTORY OF PRESENT ILLNESS: The patient is a 71-year-old male from [facility], who has a history of COPD and has had progressive shortness of breath today. Cough productive of thick green sputum. He has used his nebulizer every 2 hours today and continues to be very short of breath. He was given a DuoNeb en route by the ambulance. His normal O2 at 2 L was increased to 3 L, he said that helped some. He refused Solu-Medrol. Apparently, he gets quite a bit of shaking with prednisone, so he did not want the Solu-Medrol. He recently was hospitalized from August 21 to the for apn-II-gvncwbqfq WI, status post stent and left lower lobe pneumonia. He was discharged home on doxycycline, which he has since completed. ALLERGIES: AMOXICILLIN AND IBUPROFEN. CURRENT MEDICATIONS: 1. Aldactone 25 mg daily. 2. Aspirin 325 mg daily. 3. Cardizem 120 mg daily. 4. Flomax 0.4 mg at bedtime. 5. Lipitor 80 mg at bedtime. 6. Plavix 75 mg daily. 7. Protonix 40 mg daily. 8. Mucinex ER 600 mg b.i.d. 9. Saline nasal gel. 10. Colace p.r.n. 11. Nitrostat p.r.n. 12. Tessalon Perles p.r.n. 13. Tylenol p.r.n. PATIENT'S NAME: ELVIS VICENTE [facility] AGE: 71 Y [address] ROOM: [address] [address] LOCATION: [facility] [place] DATE: 09/22/2016 ER/Outpatient Report DISCHARGE DATE: FAMILY PHYSICIAN: MICHAEL LINDSAY MD ATTENDING PHYSICIAN: KLARISSA WELLER MEDICAL PROBLEMS: [id number]-[id number] WI; COPD; pneumonia; acute urinary retention, status post Tyler catheter; hemoptysis; severe protein-calorie malnutrition; chronic hypoxic respiratory failure; BPH; and coronary artery disease, status post anomalous left circumflex stenting. SURGERIES: Multiple sinus surgeries and then the recent cardiac stent. SOCIAL HISTORY: The patient was living in [place] prior to this last hospitalization and has been at [facility] since then. He is retired. Tobacco use, he quit on August 21. He has a 90-nroc-enii smoking history. Alcohol use, denies. Drug use, denies. REVIEW OF SYSTEMS: All systems reviewed and negative other than what is noted in the HPI, although he states he had a low-grade temperature today of 99.5. The patient has some left-sided chest pain with cough. He said it is not anterior chest pain, it is along his rib cage with cough. FAMILY HISTORY: Mother with diabetes. Brother with macular degeneration. PHYSICAL EXAMINATION: VITAL SIGNS: Blood pressure 128/87, pulse 90, respirations 28, temperature 97.9, and saturations 97% on 3 L per nasal cannula. GENERAL: A 71-year-old male in [id number]-[id number] respiratory distress. HEENT: Head: Normocephalic and atraumatic. Ears: TMs translucent both ears. Nose: Mucosa pink. No lesions. Mouth: No lesions. Pharynx benign. NECK: Supple. No lymphadenopathy. LUNGS: Lungs diminished throughout with scattered wheezes. HEART: Regular rate and rhythm. ABDOMEN: Bowel sounds present. Soft, nondistended, and nontender. SKIN: [place], warm, and dry. NEURO: No focal deficit. No lower extremity edema. No calf tenderness. EMERGENCY DEPARTMENT COURSE: The patient was given albuterol treatment and a DuoNeb treatment here in the emergency room. He remained quite short of breath, so then did agree to 60 mg of IV Solu-Medrol. LABORATORY DATA AND X-RAYS: Hemoglobin 12.2, hematocrit 35.5, platelets 201, white count 10.2, 78% segs, and 11% bands. INR 0.97. Procalcitonin 0.06. Sodium 128, which is stable; PATIENT'S NAME: ELVIS VICENTE [facility] AGE: 71 Y [address] ROOM: [address] [address] LOCATION: [facility] [place] ADMIT DATE: 09/22/2016 ER/Outpatient Report DISCHARGE DATE: FAMILY PHYSICIAN: MICHAEL LINDSAY MD ATTENDING PHYSICIAN: KLARISSA WELLER potassium 4.5; chloride 94; CO2 of 27; BUN of 14; creatinine of 0.8; blood sugar 143; liver enzymes normal; CPK 70; CK-MB 4.6; and troponin I less than 0.040. Lactate 1.5. EKG showed sinus rhythm, 86 beats per minute, no acute ST elevation or depression. Chest x-ray, 2-view, no infiltrate or changes of COPD. End-tidal CO2 of 30. ABG; pH of 7.43, pCO2 of 43, pO2 of 78, and O2 saturation 96% on 2 L per nasal cannula. IMPRESSION AND PLAN: 1. Acute chronic obstructive pulmonary disease exacerbation. Plan for admission per Dr. Weller, who evaluated the patient in the emergency room. 2. Chronic hypoxic respiratory failure with acute need for increased O2. 3. Coronary artery disease. 30 minutes of critical care was provided with this patient. KENNEDY MOODY MD CAR/modl /[id number] d: 09/22/16 2337 t: 09/23/16 0108, OUTPATIENT REPORT
[~2016-09-22 18:17] MED LIST changes: -ALDACTONE25 MG PO; -BENADRYL25 MG PO; -CALADRYL 1%-8%177 ML TOP; -CARDIZEM CD (T120 MG PO; -COLACE100 MG PO; -DELTASONE10 MG PO; -DELTASONE20 MG PO; -DUONEB INH; -FLOMAX0.4 MG PO; -FLORASTOR250 MG PO; -LEVAQUIN750 MG PO; -LEVOTHROID(SYN75 MCG PO; -LIPITOR20 M1 PO; -MUCINEX600 MG PO; -NASAL SPRAY30 M1 INH; -NITROSTAT0.4 MG SL; -PLAVIX75 MG PO; -PROTONIX40 MG PO; -PROVENTIL OR V6.7 GM INH; -PULMOZYME1 AMP INH; -TESSALON PERLE100 MG PO; -TYLENOL325 MG PO; -[UNRECOGNIZED DRUG - OTHER] PO
[2016-09-22 19:02] LABS: HEMOGLOBIN 12.2 g/dL (11.0-16.0); MCH 33.5 pg (27.0-34.0); MPV 9.1 fl (9.4-12.4); PLATELET COUNT 201 K/uL (150-450); RBC 3.64 M/uL (3.50-5.50); RDW-CV 12.6 % (11.9-14.6); WBC 10.2 K/uL (4.0-11.0)
[2016-09-22 19:03] LABS: HEMATOCRIT 35.5 % (37.0-53.0); MCHC 34.4 gm/dL (32.0-36.5); MCV 97.5 fl (83.0-98.0)
[2016-09-22 19:12] LABS: INR - (THERAPEUTIC) 0.97 (0.92-1.07); PROTIME 10.2 SECONDS (9.8-11.4); PTT 30 SECONDS (25-32)
[2016-09-22 19:23] LABS: ALBUMIN 3.3 gm/dL (3.5-5.0); ALK PHOS 93 IU/L (33-138); ALT 38 IU/L (12-78); ANION GAP 11.5 (10.0-19.0); AST 25 IU/L (10-40); BLOOD UREA NITROGEN 14 mg/dL (6-24); CALCIUM 7.8 mg/dL (8.5-10.5); CHLORIDE 94 mMol/L (96-110); CO2 27 mMol/L (22-32); CPK 70 IU/L (35-332); CREATININE 0.8 mg/dL (0.6-1.3); ESTIMATED GFR (MDRD EQUATION) > 60; POTASSIUM 4.5 mMol/L (3.7-5.1); SODIUM 128 mMol/L (135-145); TOTAL PROTEIN 6.4 g/dL (6.0-8.4)
[2016-09-22 19:25] LABS: TOTAL BILIRUBIN 0.5 mg/dL (0.0-1.5)
[2016-09-22 19:32] LABS: ABSOLUTE NEUTROPHIL CT (ANC) 9.1 K/uL (1.4-9.0); BANDED NEUTROPHIL # 1.1 K/uL (0.0-0.1); BANDED NEUTROPHILS % 11 %; LYMPHOCYTE # 0.5 K/uL (0.8-4.0); LYMPHOCYTE % 5 %; MONOCYTE # 0.6 K/uL (0.0-1.0); SEGMENTED NEUTROPHIL % 78 %
[2016-09-22 21:40] LABS: BICARBONATE 28.5 mmol/L (18.0-23.0); PCO2 43 mmHg (35-45); PO2 78 mmHg (80-90)
[2016-09-22] MEDS ORDERED: ALDACTONE25 MG PO (22:51)
[2016-09-22] MEDS ORDERED: CARDIZEM CD (T120 MG PO (22:52)
[2016-09-22] MEDS ORDERED: FLOMAX0.4 MG PO (22:53)
[2016-09-22] MEDS ORDERED: LIPITOR20 M1 PO (22:54)
[2016-09-22] MEDS ORDERED: PLAVIX75 MG PO (22:55)
[2016-09-22] MEDS ORDERED: PROTONIX40 MG PO (22:56)
[2016-09-22] MEDS ORDERED: MUCINEX600 MG PO (22:57)
[2016-09-22] MEDS ORDERED: NASAL SPRAY30 M1 INH (23:00)
[2016-09-22] MEDS ORDERED: COLACE100 MG PO (23:01)
[2016-09-22] MEDS ORDERED: NITROSTAT0.4 MG SL (23:04)
[2016-09-22] MEDS ORDERED: TESSALON PERLE100 MG PO (23:04)
[2016-09-22] MEDS ORDERED: TYLENOL325 MG PO (23:05)
[2016-09-22] MEDS ORDERED: DUONEB INH ×2 (23:09→23:10)
--- NOTE | 2016-09-23 00:43 | NUR ---
PT ADMIT FROM ER FOR COPD EXACERBATION. CURRENTLY RESIDES AT [facility]. HX COPD, URINARY RETENTION- CHRONIC GUADALUPE, HEMOPTYSIS, PROTEIN CLAORIE MALNUTRITION, BPH, CAD, POST ANOMALOUS LEFT CIRCUMFLEX STENTING., RECENT CARDIAC STENTING AFTER PA IN AUGUST. GENERALIZED ECCHYMOSIS THROUGHOUT. PT ON 2L O2 PER HOME ROUTINE.
--- NOTE | 2016-09-23 03:27 | NUR ---
Significant Event: PT AO. VSS, AFEBRILE. RT TITRATED O2 TO KEEP SATS >90%. GUADALUPE PATENT. CARDIAC DIET. DENIES PAIN, DENIES NAUSEA. RESTED WELL THIS SHIFT. Follow up: CONTINUE TO MONITOR
[2016-09-23 05:39] LABS: HEMATOCRIT 33.8 % (37.0-53.0); HEMOGLOBIN 11.5 g/dL (11.0-16.0); MCH 32.3 pg (27.0-34.0); MCV 94.9 fl (83.0-98.0); MPV 9.2 fl (9.4-12.4); PLATELET COUNT 212 K/uL (150-450); RBC 3.56 M/uL (3.50-5.50); RDW-CV 12.3 % (11.9-14.6); WBC 6.4 K/uL (4.0-11.0)
[2016-09-23 05:53] LABS: ANION GAP 11.5 (10.0-19.0); BLOOD UREA NITROGEN 14 mg/dL (6-24); CALCIUM 8.2 mg/dL (8.5-10.5); CHLORIDE 99 mMol/L (96-110); CO2 27 mMol/L (22-32); CREATININE 0.7 mg/dL (0.6-1.3); ESTIMATED GFR (MDRD EQUATION) > 60; POTASSIUM 4.5 mMol/L (3.7-5.1); SODIUM 133 mMol/L (135-145)
[2016-09-23 06:35] LABS: ABSOLUTE NEUTROPHIL CT (ANC) 5.9 K/uL (1.4-9.0); BANDED NEUTROPHIL # 0.5 K/uL (0.0-0.1); BANDED NEUTROPHILS % 8 %; LYMPHOCYTE # 0.4 K/uL (0.8-4.0); LYMPHOCYTE % 7 %; MONOCYTE # 0.1 K/uL (0.0-1.0); SEGMENTED NEUTROPHIL # 5.4 K/uL (1.4-9.0); SEGMENTED NEUTROPHIL % 84 %
--- NOTE | 2016-09-23 17:41 | NUR ---
Significant Event: UP IN RECLINER. O2 REAPPLIED AT 2L PER NC. REPORTS USES O2 ALL THE TIME ...HAD 900 ML OUT GUADALUPE DO NOT REMOVE GUADALUPE ABLE TO MAKE NEEDS KNOWN...REFUSED TO TAKE SOME MEDS,REPORTS HIS MEDICAL DR TOOK HIM OFF THE MEDS... Follow up
--- NOTE | 2016-09-24 02:41 | NUR ---
Significant Event: PT AO. VSS ON 2L, AFEBRILE. AMBULATES WITH SBA. TOLERATING CARDIAC DIET. GUADALUPE PATENT. PT IS DAILY WT. SALINE LOCK TO L FA. PT HAS BEEN REFUSING STEROID AND CARDIAC MEDS. 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 DENIES PAIN, DENIES NAUSEA, SOB WITH ACTIVITY. PT HAD BM. Follow up: CARDIOLOGY CONSULT?
--- NOTE | 2016-09-24 10:15 | NUR ---
Introduced self/role to patient. He states he has been at [facility] since August 28 and his plan is to return there. He is not really sure why he is still sitting here. 1130 Faxed updates to [facility], and let them patient could be returning soon. 1245 Gayle from [facility] called and they were planning to dismiss patient home Thursday and he really wasn't wanting to work with therapies. She will come talk to him and let me know the plan. 1700 Called Gayle and left a message asking if the plan was return there?
--- NOTE | 2016-09-24 16:37 | NUR ---
Significant Event: Patient alert and oriented. Denies discomfort. Saline lock to his L) forearm flushes well with good blood return. O2 at 2 l/nc with sats at 97-99%. Patient short of breath with activity/exertion and after coughing. Patient had refused his oral Prednisone this morning because he was questioning the dose. Everett Barrientos APRN informed and the Prednisone was dc'd and he was started on Solumedrol 40 mg IV BID. Lisinopril dc'd. Tyler patent and drains hazy, yellow urine. Up to the recliner this morning and refused to have the TABS alarm on. Follow up: Possible transfer back to [facility] tomorrow.
--- NOTE | 2016-09-25 05:02 | NUR ---
SIGNIFICANT EVENT: Pt alert & oriented. Tachypneic - 22 to 24. Some hypertension - 132 to 152 over 72 to 73. Other VSS on RA. Tyler patent, draining yellow urine - 2750 out. PIV to L) FA. Cardiac diet. SBA. Possible DC to [facility] today. Cooperative with cares.
--- NOTE | 2016-09-25 09:55 | NUR ---
Spoke to Nguyễn at [facility]. Made arrangements for 1230 pickup. Let Dalila Tovar know this and also Blessing his nurse. Co-worker Bambi Martini, faxed orders.
--- NOTE | 2016-09-25 11:43 | NUR ---
Pt is alert/orientated x 3. Prefers to be called Vasyl. Vital signs stable. Pt is tachycardic, SOB with activity. Remains on O2/2L per nasal canula, as at home. Abdomen soft, with bowel sounds present. Last BM 09/24/16. Tyler catheter intact with clear yellow urine. Tyler is not to be dc'd per MD orders. Pt has hx of urinary retention. Transfers in/out bed with 1 SBA.
--- NOTE | 2016-09-25 18:06 | NUR ---
pt tx to BR with SBA 1, SOB,tachycardia noted with activity. Pt assisted to chair at BR door, rests. RT notified and initiated a breathing tx. Pt leans foward on rests on bedside table to assist with breathing slower. Pt slowing recovers his breathing pattern, and is less short of breath after respiratory tx. Pt is tx to and DC to [facility] in stable condition. Report called to Neena.
== END 2016-09-25 13:08 | DRG 190 ==
LOC: GMED 18:17 → GMSU 20:02
PROVIDERS: Family Medicine; ADMIT Internal Medicine
DX: J44.1 Chronic obstructive pulmonary disease with (acute) exacerbation (principal); J96.21 Acute and chronic respiratory failure with hypoxia; E43 Unspecified severe protein-calorie malnutrition; E87.1 Hypo-osmolality and hyponatremia; Z68.1 Body mass index [BMI] 19.9 or less, adult; I25.10 Atherosclerotic heart disease of native coronary artery without angina pectoris; I10 Essential (primary) hypertension; F17.210 Nicotine dependence, cigarettes, uncomplicated; N40.1 Benign prostatic hyperplasia with lower urinary tract symptoms; R33.8 Other retention of urine; N13.9 Obstructive and reflux uropathy, unspecified; Z95.5 Presence of coronary angioplasty implant and graft; Z88.0 Allergy status to penicillin; I25.2 Old myocardial infarction; Z88.6 Allergy status to analgesic agent; Z79.82 Long term (current) use of aspirin; Z79.02 Long term (current) use of antithrombotics/antiplatelets
CPT/HCPCS: J1650; J2920; J2930; J7120; J7512

== ENCOUNTER → 2016-09-22 | Outpatient (CLI) | payer MEDICARE, OTHER ==
[~2016-09-22] MED LIST: ALDACTONE25 MG PO; ASPIR-TRIN325 MG PO; BENADRYL25 MG PO; CALADRYL 1%-8%177 ML TOP; CARDIZEM CD (T120 MG PO; COLACE100 MG PO; DELTASONE10 MG PO; DELTASONE20 MG PO; DUONEB INH; FLOMAX0.4 MG PO; FLORASTOR250 MG PO; LEVAQUIN750 MG PO; LEVOTHROID(SYN75 MCG PO; LIPITOR20 M1 PO; MUCINEX600 MG PO; NASAL SPRAY30 M1 INH; NITROSTAT0.4 MG SL; PLAVIX75 MG PO; PRINIVIL (ZESTR20 MG PO; PROTONIX40 MG PO; PROVENTIL OR V6.7 GM INH; PULMOZYME1 AMP INH; TESSALON PERLE100 MG PO; TYLENOL325 MG PO; [UNRECOGNIZED DRUG - OTHER] PO
== END | disposition disaster alternative care site (69) ==
LOC: GAMB 17:57
DX: J44.1 Chronic obstructive pulmonary disease with (acute) exacerbation (principal); R06.02 Shortness of breath; R06.00 Dyspnea, unspecified
CPT/HCPCS: A0422; A0425; A0427; J2930

== ENCOUNTER 2016-10-01 19:58 | Inpatient (IN) | payer MEDICARE, OTHER ==
[~2016-10-01] VITALS: Ht 185.4 cm; Wt 56.9 kg
--- NOTE | ~2016-10-01 | CON ---
PATIENT'S NAME: ELVIS VICENTE [facility] AGE: 71 Y [address] ROOM: [place] [address] LOCATION: [facility] [place] ADMIT DATE: 10/01/2016 Consultation DISCHARGE DATE: FAMILY PHYSICIAN: PHYSICIAN, UNKNOWN ATTENDING PHYSICIAN: RODO ZAPATA V HISTORY OF PRESENT ILLNESS: A 70-year-old male, who was readmitted to [facility] because of increasing shortness of breath and gross hematuria. Apparently, he was previously in the hospital in August 2016 with COPD and urinary retention. A Tyler catheter was inserted at that time and it was removed several times each time he was unable to void. The patient states prior to his present illness, he had no voiding symptoms. He denied any hesitancy or difficulty voiding. Since his first admission in August, he has been on Flomax 0.4 mg. When he was in the hospital in August, he was seen by Dr. Nadir Lucero. He has a past history of having paroxysmal atrial fibrillation, coronary heart disease, and severe COPD for many years. PHYSICAL EXAMINATION: GENERAL: A well-developed, thin, elderly male who is markedly short of breath, unable to ambulate because of his shortness of breath. ABDOMEN: Soft and nondistended with no palpable masses. : Normal penis with urethral catheter in place and is draining grossly clear urine. Prostate is slightly enlarged and benign. IMPRESSION: 1. Mild benign prostatic hypertrophy with urinary retention. 2. Gross hematuria, resolving. 3. Exacerbation of chronic obstructive pulmonary disease. RECOMMENDATIONS: His urine has gradually cleared, so I do not think anything more needs to be done at this time. We will have Dr. Luceor follow him as he has seen him in the past. NADIRA DIEZ MD EKL/modl PATIENT'S NAME: ELVIS VICENTE [facility] AGE: 71 Y [address] ROOM: [place] [address] LOCATION: [facility] [place] ADMIT DATE: 10/01/2016 Consultation DISCHARGE DATE: FAMILY PHYSICIAN: PHYSICIAN, UNKNOWN ATTENDING PHYSICIAN: RODO ZAPATA V /[id number] d: 10/02/1651 t: 10/03/16 0432, CONSULTATION REPORT
--- NOTE | ~2016-10-01 | DS ---
PATIENT'S NAME: ELVIS VICENTE [facility] AGE: 71 Y [address] ROOM: [id number] [place], [place] [address] LOCATION: [facility] [place] ADMIT DATE: 10/01/2016 Discharge Summary DISCHARGE DATE: 10/10/2016 FAMILY PHYSICIAN: Phoenix Ling PA-C ATTENDING PHYSICIAN: Rodo Zapata V FINAL DIAGNOSES: 1. Acute on chronic hypoxic respiratory failure. 2. Chronic obstructive pulmonary disease exacerbation. 3. Hyponatremia. 4. Coronary artery disease. 5. Essential hypertension. 6. Hypersensitivity rash to Ceftin. 7. Hematuria secondary to bladder outlet obstruction. CONSULTANTS ON THE CASE: Dr. Nadir Lucero for Urology. HOSPITAL COURSE: Please see details of admission in H and P by Dr. Zapata. Briefly, the patient was admitted to [facility] with difficulty breathing, was felt to have an exacerbation of his COPD, which left him increasingly hypoxic. He is also noted to have gross hematuria and Dr. Moon and Nic graciously followed him throughout his stay. He recommend the patient continue his Tyler catheter that he currently have in place. Urinalysis was sent for evaluation of infection. Respiratory was called for severity scoring and treatment. The patient's hyponatremia improved with IV fluids. It was felt to be hypovolemic, hyponatremia. The patient did have a productive cough up on upon further evaluation, and was started on IV meropenem and Florastor for GI prophylaxis. He did get a sputum culture prior to antibiotics starting. The patient continued to have some mild hyponatremia and fluid restriction was started, Solu-Medrol was able to be switched to prednisone on the . Sodium was up to 134 on the and his hematuria had resolved. We tried to get therapy started occupational and physical. The patient was hesitant to work with them. On the , we were able to discontinue the meropenem and changed him over to Ceftin twice daily. Prednisone was tapered, however, the patient developed a significant rash over his chest and back. Upper extremities extending down to his lower extremity and the Ceftin was discontinued. We started some Benadryl and some Zantac, and treated topically with calamine lotion. The patient then was started on Zyrtec. We liberated is fluid restriction to 220 mL, as it was felt that he was having some further difficulty with dehydration and his sodium had jumped to 136. On the , it was felt that the patient could safely be discharged. His breathing had stabilized, his rash had improved with the above-mentioned therapy and the patient was agreeable to discharging home. DIAGNOSTICS: His chest x-ray on the showed severe emphysema. On his PATIENT'S NAME: ELVIS VICENTE [facility] AGE: 71 Y [address] ROOM: [address] [address] LOCATION: [facility] [place] ADMIT DATE: 10/01/2016 Discharge Summary DISCHARGE DATE: 10/10/2016 FAMILY PHYSICIAN: Phoenix Ling PA-C ATTENDING PHYSICIAN: Rodo Zapata V laboratory studies, sodium on admission was 125, it troy to 133 on the day of discharge. On admission, his white blood cell count was 17.8, closer to discharge it was down to 12.9. Hemoglobins were stable. Urinalysis on the that show 50- 100 white blood cells, full field red blood cells, many bacteria. His urine Osmo was 207, urine sodium was 29. The patient's sputum culture showed no normal ronald. DISCHARGE INSTRUCTIONS: The patient is discharged home. Diet is a 2.5 L fluid restriction, otherwise regular. Activity: As tolerated. Followup: With the PR PA Brian Ling in 3-5 days which is scheduled for October 14, 2016 at 11:00 am and he will follow up with Dr. Lucero on 10/17 at 2:30 p.m. for Tyler exchange. Home Health will be following the patient on discharged monitor labs, breathing, and overall condition for strengthening. DISCHARGE MEDICATIONS: 1. Aspirin 325 mg daily. 2. Lipitor 20 mg daily. 3. Plavix 75 mg daily. 4. Cardizem 120 mg daily. 5. Protonix 40 mg daily. 6. Florastor 250 mg daily. 7. Spironolactone 25 mg daily. 8. Flomax 0.4 mg daily. 9. Albuterol nebulizer one treatment 5 times daily or q.2 hours p.r.n. 10. Benadryl 25 to 50 mg every 6 hours as needed. 11. Calmoseptine lotion 4 times daily as needed. 12. Nitroglycerin 0.4 mg sublingual as needed. 13. Tylenol 650 mg every 4 hours as needed. 14. Prednisone 20 mg daily for four days, then 15 mg daily for four days, then 10 mg daily for four days, then 5 mg daily then discontinue. The patient was able to verbalize understanding these discharge instructions and was discharged in stable condition. Overall time spent was 40 minutes in management of discharge which includes coordinating with consulting physicians and Care Management, completion of medication reconciliation, education to the patient and family on above-mentioned diagnoses. We do appreciate participating in this patient's care and serving him while hospitalized at [facility]. PATIENT'S NAME: ELVIS VIECNTE [facility] AGE: 71 Y [address] ROOM: [place] [address] LOCATION: [facility] [place] ADMIT DATE: 10/01/2016 Discharge Summary DISCHARGE DATE: 10/10/2016 FAMILY PHYSICIAN: Phoenix Ling PA-C ATTENDING PHYSICIAN: Rodo Zapata V JORGE SIMS FOR RODO ZAPATA MD OZIEL/modl /[id number] CC: Phoenix Ling PA-C d: 10/11/16 1525 t: 11/10/16 1459, DISCHARGE SUMMARY
--- NOTE | ~2016-10-01 | HP ---
PATIENT'S NAME: ELVIS VICENTE [facility] AGE: 71 Y [address] ROOM: [place] [address] [place] [facility] [place] DATE: 10/01/2016 History & Physical DISCHARGE DATE: FAMILY PHYSICIAN: PHYSICIAN, UNKNOWN ATTENDING PHYSICIAN: RODO ZAPATA V DATE OF SERVICE: CHIEF COMPLAINT: Shortness of breath and blood in the urine. HISTORY OF PRESENT ILLNESS: The patient is a 71-year-old male with past medical history further completely detailed below, most significant for a discharge from the hospital approximately 6 days ago. At that point, he was treated for COPD exacerbation as well as had a cardiac cath with placement of a stent and started on aspirin and Plavix. Today, the patient presents with approximately 10 hours of jailene hematuria in his indwelling Tyler. He also reports worsening shortness of breath and cough as well as dyspnea. Apparently, the patient is still completing a steroid taper, but has developed profound respiratory symptoms. In the ER, the patient was also found to have a sodium of 125. The patient denies any chest pain, nausea, vomiting, or palpitations. REVIEW OF SYSTEMS: All systems have been reviewed and are negative aside from pertinent positives mentioned above. PAST MEDICAL HISTORY: 1. Paroxysmal atrial fibrillation. 2. Coronary artery disease. 3. Chronic hypoxic respiratory failure, secondary to COPD with chronic oxygen dependency at 2 to 3 L.. 4. Indwelling Tyler placed on last hospitalization. PAST SURGICAL HISTORY: Significant for a colon resection. CURRENT MEDICATIONS: 1. Aspirin 325. 2. Atorvastatin 80. 3. Clopidogrel 75. PATIENT'S NAME: ELVIS VICENTE [facility] AGE: 71 Y [address] ROOM: [place] [address] [place] [facility] [place] DATE: 10/01/2016 History & Physical DISCHARGE DATE: FAMILY PHYSICIAN: PHYSICIAN, UNKNOWN ATTENDING PHYSICIAN: RODO ZAPATA V 4. Diltiazem CD 120. 5. Mucinex. 6. Pantoprazole. 7. Spironolactone 25. 8. Flomax 0.4. 9. DuoNeb. 10. Acetaminophen. 11. Colace. 12. Sublingual nitroglycerin as needed. 13. Benzonatate. SOCIAL HISTORY: Significant for a lifelong history of tobacco use, the patient having quit only recently. He denies any history of alcohol abuse. He resides [place]." FAMILY HISTORY: Reviewed and is noncontributory due to known underlying etiology for the patient's presentation. PHYSICAL EXAMINATION: VITAL SIGNS: Blood pressure 196/93, pulse 91, respirations 24, temperature 97.1, and saturating 92% to 100% on 2 L nasal cannula. GENERAL: Appears as a malnourished elderly male in no acute distress. NEUROLOGIC: Exam is nonfocal. EYES: Exam shows pupils are equal and reactive to light. LYMPHATICS: Exam shows no cervical lymphadenopathy. ENDOCRINE: Exam shows no thyromegaly. LUNGS: Exam reveals profoundly diminished breath sounds in all castano of auscultation. HEART: Reveals regular rate and rhythm without appreciable murmurs, gallops, or rubs. There is no JVD or lower extremity edema. GI: Abdomen is soft, nontender, nondistended. : Exam reveals a Tyler in place with jailene hematuria in the bag. VASCULAR: A 2+ pedal pulses. SKIN: Reveals chronic venous stasis changes. PSYCHIATRIC: Reveals appropriate mood, cognition, and affect. LABORATORY DATA: Studies performed in the ER significant for a chest x-ray which shows hyperexpansion with diminished lung parenchyma consistent with severe COPD though I do not see any areas of consolidation. Lab results are significant for sodium 125, chloride of 88, creatinine 0.9, and BUN is 15. Troponin is negative. White count is 17.8. PATIENT'S NAME: ELVIS VICENTE [facility] AGE: 71 Y [address] ROOM: [place] [address] [place] [facility] [place] DATE: 10/01/2016 History & Physical DISCHARGE DATE: FAMILY PHYSICIAN: PHYSICIAN, UNKNOWN ATTENDING PHYSICIAN: RODO ZAPATA V ASSESSMENT AND PLAN: This is a 71-year-old male who will be admitted with: 1. Sjjsz-vw-mebuukq hypoxic respiratory failure due to chronic obstructive pulmonary disease. We will restart the patient on another brief course of intravenous steroids. We will provide him with another course of Levaquin. We will continue him on his nebulizers. It is unclear to me why the patient is not on any long-acting beta-agonist and long-acting inhaled steroids and we will start those. 2. Hyponatremia. The patient appears to be slightly hypovolemic. We will check his urine osmolality and gently hydrate him. The underlying etiology for his hyponatremia could be beer potomania versus hyponatremia versus syndrome of inappropriate antidiuretic hormone secretion and urine studies will help it decide. 3. Hematuria. We will send the urine for cytology. We will request the Urology followup in the morning. At this point, he does not appear to have any evidence of obstruction or postobstructive nephropathy. 4. Chronic hypoxic respiratory failure. We will continue the patient on oxygen. 5. Coronary artery disease, status post percutaneous coronary intervention. We will continue the patient on his full-dose aspirin and Plavix for the time being as he has a fresh stents. 6. Accelerated hypertension. We will restart the patient's home blood pressure medications. 7. Deep vein thrombosis prophylaxis will be nonpharmacologic for the time being given that the patient is already on aspirin and Plavix and has hematuria. 8. Additional management will depend on clinical course. Time dedicated to this patient encounter is 35 minutes. MD JEN LIMA/sunday /[id number] D: [id number] T: [id number] HISTORY & PHYSICAL
--- NOTE | ~2016-10-01 | ER ---
PATIENT'S NAME: ELVIS JENKINS [facility] AGE: 71 Y [address] ROOM: [place] [address] [place] [facility] [place]: 10[place]01/[place] ER/Outpatient Report DISCHARGE DATE: FAMILY PHYSICIAN: PHYSICIAN, UNKNOWN ATTENDING PHYSICIAN: RODO ZAPATA V CHIEF COMPLAINT: Shortness of breath and blood in the urine. HISTORY OF PRESENT ILLNESS: Mr. Jenkins notes that he has not felt well all day today. He called his urologist whom he cannot remember the name, because he has developed more and more red urine in his Tyler catheter today. It seems as though the Tyler was placed several days ago for urinary retention. He was admitted recently for COPD exacerbation. He came in tonight because his blood in the urine is bothersome to him. He denies particular pain but some discomfort with that, but he states that his discomfort from his COPD is 6/10, whereas his discomfort from the Tyler catheter and blood in the urine is 4/10. Overall, he just does appear to be not doing so well. No other acute issues at this time. PAST MEDICAL HISTORY: Documented on the record and reviewed by me. SOCIAL HISTORY: Documented on the record and reviewed by me. MEDICATIONS: Documented on the record and reviewed by me. ALLERGIES: DOCUMENTED ON THE RECORD AND REVIEWED BY ME. REVIEW OF SYSTEMS: All systems reviewed and negative except as noted in the HPI. PHYSICAL EXAMINATION: VITAL SIGNS: Blood pressure 196/93, pulse 91, respiratory rate is 24, temperature 97.1, and SpO2 is 92% on 2 L nasal cannula. Pain is 4/10. GENERAL: Age-appropriate male, in [id number] respiratory distress with no outward signs of severe pain, maybe some discomfort. NEUROLOGIC: Awake and alert. GCS appears to be 15. No focal deficits. No obvious asymmetry. Gait is limited by shortness of breath. HEENT: Normocephalic, atraumatic. Eyes are PERRL. Oropharynx is clear. NECK: Supple. Trachea is midline. PATIENT'S NAME: ELVIS JENKINS [facility] AGE: 71 Y [address] ROOM: [place] [address] [place] [facility] [place]: 10/01/2016 ER/Outpatient Report DISCHARGE DATE: FAMILY PHYSICIAN: PHYSICIAN, UNKNOWN ATTENDING PHYSICIAN: RODO ZAPATA V CHEST: Heart has regular rate and rhythm with no murmurs. LUNGS: Coarse bilateral with diffuse wheezes and diminished air entry bilateral. ABDOMEN: Soft, nontender, nondistended, scaphoid. BACK: Normal to inspection and palpation. EXTREMITIES: Warm and well perfused. No obvious abnormalities. SKIN: Appears to be grossly intact. LABORATORY DATA AND X-RAYS: Chest x-ray with no clear infiltrates at this time. Procalcitonin is 0.09. CMS: Sodium of 125, potassium 4.6, chloride is 88, CO2 is 31, BUN is 15, creatinine 0.9, GFR is greater than 60. LFTs unremarkable. Troponin is not elevated. White count is 18.7, hemoglobin is 14.1, platelets 254. INR is 1. Blood gas: PH 7.39, pCO2 is 49, pO2 is 81, bicarb is 29.7 on 2 L. Lactate is 0.8. EKG will be done in the hospital. IMPRESSION: 1. Hyponatremia. 2. Hypochloremia. 3. Chronic obstructive pulmonary disease exacerbation, mild to moderate. 4. Gross hematuria, unclear etiology. EMERGENCY DEPARTMENT COURSE: The patient was seen and evaluated as above. The breathing treatments were administered, and the patient had marked improvement from a respiratory standpoint. The blood in the catheter is unexplained at this time, possibly secondary to trauma. Urinalysis was ordered, results pending. No particular findings at this time. He remained otherwise stable. Incidentally, the patient was found to be severely hyponatremic at 125. For this reason, we will admit him to the Hospitalist Service under the care of Dr. Zapata for further evaluation and treatment. All questions were answered, and the patient was admitted without further issue. MD ISAURA BUTTS/sunday /[id number] d: 10/02/16 0455 t: 10/07/16 1224, OUTPATIENT REPORT
[~2016-10-01 19:58] MED LIST changes: +ALDACTONE25 MG PO; +CARDIZEM CD (T120 MG PO; +COLACE100 MG PO; +DUONEB INH; +FLOMAX0.4 MG PO; +LIPITOR20 M1 PO; +MUCINEX600 MG PO; +NASAL SPRAY30 M1 INH; +NITROSTAT0.4 MG SL; +PLAVIX75 MG PO; +PROTONIX40 MG PO; +TESSALON PERLE100 MG PO; +TYLENOL325 MG PO
[2016-10-01 20:35] LABS: BICARBONATE 29.7 mmol/L (18.0-23.0); LACTATE 0.8 mEq/L (0.50-1.60); PCO2 49 mmHg (35-45); PO2 81 mmHg (80-90)
[2016-10-01 20:35] LABS: BASOPHIL % 0.2 %; EOSINOPHIL % 0.2 %; HEMATOCRIT 40.3 % (37.0-53.0); HEMOGLOBIN 14.1 g/dL (11.0-16.0); IMMATURE GRANULOCYTE # 0.6 K/uL (0.0-0.3); IMMATURE GRANULOCYTE % 3.1 %; LYMPHOCYTE # 0.7 K/uL (0.8-4.0); LYMPHOCYTE % 3.9 %; MCH 33.2 pg (27.0-34.0); MCV 94.8 fl (83.0-98.0); MONOCYTE # 1.3 K/uL (0.0-1.0); MPV 9.6 fl (9.4-12.4); NEUTROPHIL # (ANC) 15.2 K/uL (1.4-9.0); NEUTROPHIL % 85.6 %; NRBC % 0 /100WBC (0-0.00); PLATELET COUNT 254 K/uL (150-450); RBC 4.25 M/uL (3.50-5.50); RDW-CV 12.7 % (11.9-14.6)
[2016-10-01 20:36] LABS: WBC 17.8 K/uL (4.0-11.0)
[2016-10-01 20:45] LABS: INR - (THERAPEUTIC) 0.99 (0.92-1.07); PROTIME 10.4 SECONDS (9.8-11.4); PTT 30 SECONDS (25-32)
[2016-10-01 20:53] LABS: ALBUMIN 3.7 gm/dL (3.5-5.0); ALK PHOS 107 IU/L (33-138); ALT 57 IU/L (12-78); AST 25 IU/L (10-40); BLOOD UREA NITROGEN 15 mg/dL (6-24); CALCIUM 8.4 mg/dL (8.5-10.5); CO2 31 mMol/L (22-32); CREATININE 0.9 mg/dL (0.6-1.3); ESTIMATED GFR (MDRD EQUATION) > 60; POTASSIUM 4.6 mMol/L (3.7-5.1); SODIUM 125 mMol/L (135-145); TOTAL PROTEIN 7.4 g/dL (6.0-8.4)
[2016-10-01 20:55] LABS: ANION GAP 10.6 (10.0-19.0); CHLORIDE 88 mMol/L (96-110); TOTAL BILIRUBIN 0.9 mg/dL (0.0-1.5)
[2016-10-01 22:29] LABS: BILIRUBIN URINE NEGATIVE (NEGATIVE); BLOOD URINE 250 /UL (NEGATIVE); COLOR URINE RED (YELLOW); GLUCOSE URINE NEGATIVE (NEGATIVE); KETONE URINE 15 mg/dL (NEGATIVE); LEUKOCYTES URINE 500 /UL (NEGATIVE); NITRITE URINE POSITIVE (NEGATIVE); PROTEIN URINE 100 mg/dL (NEGATIVE); SPEC GRAVITY URINE 1.015 (1.003-1.035); TURBIDITY URINE 4+ (CLEAR); UROBILINOGEN URINE 1 mg/dL (NORMAL)
[2016-10-01 22:39] LABS: BACTERIA URINE MANY (NEGATIVE); RBC URINE FULL FIELD #/HPF (NEGATIVE); WBC URINE 50-100 #/HPF (NEGATIVE)
--- NOTE | 2016-10-01 23:31 | NUR ---
ADMISSION: Pt admitted from ER at 2250. pt was released from swing bed today and was at home when neighbor brought him into the ER. pt was SOB and having blood in urine. pt has a orona which was placed on the 16 of september for retension. Hx COPD, CHF, HTN, pt also had hponatremia on admission. Alert and Oriented. Weezing and congested LS. pt has non productive cough. Allergies are Amoxicillin and Ibuprophen. pt is light headed but steady on his feet has numbness and tingling in legs bilaterally that is his base line. IV in L) AC. recently had [place] with stents placed in August. full code. home meds addressed. israelumlon chiu in 2016. VSS. on 2 L 02 on admission, pt wears 2 L at home
--- NOTE | 2016-10-02 03:43 | NUR ---
Significant Event: Pt alert and Orineted x3. Cooperative with cares. Solumederol given. keep on 2 L 02. pt SOB at times. PRN breathing treatment given. NS @ 75 ML/HR. Cardiac diet. pt slept most of the night. urine will go from clear to bloody. foul smelling. urology to see this AM. pt refused lipitor. Follow up:
[2016-10-02 04:56] LABS: HEMATOCRIT 37.1 % (37.0-53.0); HEMOGLOBIN 12.8 g/dL (11.0-16.0); MCH 32.8 pg (27.0-34.0); MCHC 34.5 gm/dL (32.0-36.5); MCV 95.1 fl (83.0-98.0); MPV 9.5 fl (9.4-12.4); PLATELET COUNT 213 K/uL (150-450); WBC 14.9 K/uL (4.0-11.0)
[2016-10-02 05:12] LABS: ALBUMIN 3.1 gm/dL (3.5-5.0); ALK PHOS 91 IU/L (33-138); ALT 49 IU/L (12-78); ANION GAP 10.6 (10.0-19.0); AST 25 IU/L (10-40); BLOOD UREA NITROGEN 15 mg/dL (6-24); CALCIUM 8.2 mg/dL (8.5-10.5); CHLORIDE 94 mMol/L (96-110); CO2 32 mMol/L (22-32); CREATININE 0.9 mg/dL (0.6-1.3); ESTIMATED GFR (MDRD EQUATION) > 60; MAGNESIUM 2.1 mg/dL (1.8-2.6); PHOSPHORUS 3.1 mg/dL (2.5-4.9); POTASSIUM 4.6 mMol/L (3.7-5.1); TOTAL BILIRUBIN 0.8 mg/dL (0.0-1.5); TOTAL PROTEIN 6.5 g/dL (6.0-8.4)
[2016-10-02 05:14] LABS: SODIUM 132 mMol/L (135-145)
[2016-10-02 06:28] LABS: ABSOLUTE NEUTROPHIL CT (ANC) 14.3 K/uL (1.4-9.0); BANDED NEUTROPHILS % 7 %; LYMPHOCYTE # 0.3 K/uL (0.8-4.0); LYMPHOCYTE % 2 %; MONOCYTE # 0.3 K/uL (0.0-1.0); SEGMENTED NEUTROPHIL # 13.3 K/uL (1.4-9.0); SEGMENTED NEUTROPHIL % 89 %
--- NOTE | 2016-10-02 16:42 | NUR ---
Significant Event:PT. A/O AND VERY SOB WITH ANY ACTIVITY. LUNG SOUNDS VERY COARSE AND NON PRODUCTIVE COUGH. O2 AT 2L PER NC. GUADALUPE DRAINING CLEAR YELLOW URINE AFTER 0700 THIS MORNING. BEFORE AND ON NIGHTS IT WAS RED TINGED. GUADALUPE FOR RETENTION. NS AT 75ML/HR LAC. CARDIAC DIET AND EATING POORLY. URINE FOUL SMELLING BUT HAS STAYED CLEAR ALL DAY. UP TO CHAIR THIS AFTERNOON AND VERY SOB GETTING THERE. Follow up:
--- NOTE | 2016-10-02 17:47 | NUR ---
PT REFUSED FLUTTER VALVE
--- NOTE | 2016-10-03 00:59 | NUR ---
SIGNIFICANT EVENT: Pt alert & oriented. VSS on 2L. 1PA from bed to chair. Did well transferring from chair to bed at HS - SBA but this was right after a breathing tx. Cardiac diet. Intermittent IV antibiotics and IVP solu-medrol. Refusing lipitor - states he won't take unless changed to 20 mg. Sputum specimen obtained. PIV to L) AC is SL, good blood return. Cooperative with cares.
[2016-10-03 04:49] LABS: HEMATOCRIT 31.5 % (37.0-53.0); MCH 32.7 pg (27.0-34.0); MCHC 34.9 gm/dL (32.0-36.5); MCV 93.8 fl (83.0-98.0); MPV 9.8 fl (9.4-12.4); PLATELET COUNT 201 K/uL (150-450); RBC 3.36 M/uL (3.50-5.50); RDW-CV 12.7 % (11.9-14.6)
[2016-10-03 04:51] LABS: WBC 16.6 K/uL (4.0-11.0)
[2016-10-03 04:57] LABS: ANION GAP 12.5 (10.0-19.0); CREATININE 0.8 mg/dL (0.6-1.3); POTASSIUM 4.5 mMol/L (3.7-5.1)
[2016-10-03 06:24] LABS: ABSOLUTE NEUTROPHIL CT (ANC) 15.6 K/uL (1.4-9.0); BANDED NEUTROPHIL # 1.2 K/uL (0.0-0.1); BANDED NEUTROPHILS % 7 %; LYMPHOCYTE # 0.5 K/uL (0.8-4.0); LYMPHOCYTE % 3 %; MONOCYTE # 0.5 K/uL (0.0-1.0); SEGMENTED NEUTROPHIL # 14.4 K/uL (1.4-9.0); SEGMENTED NEUTROPHIL % 87 %
--- NOTE | 2016-10-03 15:13 | NUR ---
Introduced self and care management services to patient. Lives at home alone. Discharged from [facility] and then came in to ER later. Asked him about that and he said he couldn't stay at [facility] as they said Medicare wouldn't pay anymore and they aren't contracted with [facility]. Asked if he felt he was strong enough to go home and he said he thought so but then started bleeding in his urine so came in to ER. Asked what he thinks he wants to do on discharge this time, go back to SNF or go home. He said if he goes to SNF wants to go to one thats VA connected. Discussed with him that would be [facility], [facility] or possibly [facility]. He said the one in [place] isn't anymore. Open to [facility] or [facility]. [facility] Floor Service Worker will follow.
--- NOTE | 2016-10-03 15:20 | NUR ---
Significant Event: Pt denies pain. Up ad darrick in room. SOB with activity. O2 sat remains above 90% on 2 liters. Tyler draining yellow urine. Continues on IVATB. Follow up:
--- NOTE | 2016-10-04 04:43 | NUR ---
SIGNIFICANT EVENT: Pt alert & oriented. VSS on 2L. Tyler draining yellow urine - 450 out. Intermittent antibiotics to L) AC. Cardiac diet. Independent to SBA depending on SOB, pt will call if needed. Pleasant and cooperative with cares.
[2016-10-04 05:25] LABS: HEMATOCRIT 30.7 % (37.0-53.0); HEMOGLOBIN 10.8 g/dL (11.0-16.0); MCHC 35.2 gm/dL (32.0-36.5); MCV 93.9 fl (83.0-98.0); MPV 9.8 fl (9.4-12.4); PLATELET COUNT 181 K/uL (150-450); RBC 3.27 M/uL (3.50-5.50); RDW-CV 12.7 % (11.9-14.6)
[2016-10-04 05:37] LABS: ANION GAP 9.9 (10.0-19.0); BLOOD UREA NITROGEN 17 mg/dL (6-24); CHLORIDE 97 mMol/L (96-110); CO2 28 mMol/L (22-32); CREATININE 0.8 mg/dL (0.6-1.3); POTASSIUM 4.9 mMol/L (3.7-5.1); SODIUM 130 mMol/L (135-145)
[2016-10-04 06:05] LABS: ABSOLUTE NEUTROPHIL CT (ANC) 16.2 K/uL (1.4-9.0); BANDED NEUTROPHIL # 1.7 K/uL (0.0-0.1); BANDED NEUTROPHILS % 10 %; LYMPHOCYTE # 0.3 K/uL (0.8-4.0); LYMPHOCYTE % 2 %; MONOCYTE # 0.5 K/uL (0.0-1.0); SEGMENTED NEUTROPHIL # 14.5 K/uL (1.4-9.0); SEGMENTED NEUTROPHIL % 85 %
--- NOTE | 2016-10-04 17:26 | NUR ---
Significant Event:Is A/O.Has SL to Lt.anticub.Tyler dring clear yellow urine.Has O2 on at 2L/NC.SOB on very little activity.Has occ.hacky cough of productive yellowish green sputum.Has some numbnish & tingling in bilateral legs which is not new.Had a stool today.Is on 1750ml fld restriction. Follow up:
--- NOTE | 2016-10-05 03:44 | NUR ---
Significant Event: Patient up in wheelchair during early part of shift. Gets very SOB with any activity. Breathing treatment at 2300 seemed to help and he was able to rest comfortably throughout the night. On 2 liters of 02. Complains of his nose being plugged up and not being able to breath through it, 02 sats have been well into the upper 90%. Would like ensure to be ordered since he has lost a lot of weight recently. Follow up:Continue to monitor.
[2016-10-05 05:30] LABS: ALBUMIN 2.8 gm/dL (3.5-5.0); ANION GAP 9.5 (10.0-19.0); BLOOD UREA NITROGEN 16 mg/dL (6-24); CALCIUM 8.2 mg/dL (8.5-10.5); CHLORIDE 98 mMol/L (96-110); CO2 31 mMol/L (22-32); CREATININE 0.8 mg/dL (0.6-1.3); POTASSIUM 4.5 mMol/L (3.7-5.1); SODIUM 134 mMol/L (135-145)
[2016-10-05 05:31] LABS: PHOSPHORUS 1.8 mg/dL (2.5-4.9)
--- NOTE | 2016-10-05 16:42 | NUR ---
Significant Event:Is A/O.Gets extremely SOB on little activity.Has O2 on at 1.5L/NC.Has occ.harsh cough & at times will expectorate thick yellow green sputum.States bottom of feet are "numbish feeling & extremely sensitive"& have been this way since his last hospitalization.Has been up in his chair and w/c.Nayeli dumnot clear yellow urine.Had 2 stools yesterday but none yet today.Is eating fairly well.Is on 1750ml fld restriction.No c/o pain. Follow up:
--- NOTE | 2016-10-06 04:25 | NUR ---
Significant Event:SOB with activity, continues on IV antibiotics, orona with some episodes of bloody urine. No complaints of pain. Refuses bed alarm. Up in chair most of the evening. Rests in bed after midnight. 1750 fluid restrict. Follow up: Continue to monitor.
[2016-10-06 06:10] LABS: BASOPHIL % 0.1 %; HEMATOCRIT 31.2 % (37.0-53.0); IMMATURE GRANULOCYTE # 0.2 K/uL (0.0-0.3); IMMATURE GRANULOCYTE % 1.5 %; LYMPHOCYTE # 0.6 K/uL (0.8-4.0); LYMPHOCYTE % 4.4 %; MCH 32.9 pg (27.0-34.0); MCHC 35.3 gm/dL (32.0-36.5); MCV 93.4 fl (83.0-98.0); MONOCYTE % 7.6 %; MPV 9.5 fl (9.4-12.4); NEUTROPHIL # (ANC) 11.2 K/uL (1.4-9.0); NEUTROPHIL % 86.4 %; NRBC % 0 /100WBC (0-0.00); PLATELET COUNT 181 K/uL (150-450); RBC 3.34 M/uL (3.50-5.50); RDW-CV 12.7 % (11.9-14.6); WBC 12.9 K/uL (4.0-11.0)
[2016-10-06 06:25] LABS: ALBUMIN 2.7 gm/dL (3.5-5.0); BLOOD UREA NITROGEN 14 mg/dL (6-24); CALCIUM 7.8 mg/dL (8.5-10.5); CHLORIDE 100 mMol/L (96-110); CO2 31 mMol/L (22-32); CREATININE 0.7 mg/dL (0.6-1.3); SODIUM 136 mMol/L (135-145)
[2016-10-06 06:26] LABS: PHOSPHORUS 1.6 mg/dL (2.5-4.9)
--- NOTE | 2016-10-06 10:36 | NUR ---
Talked with Dalila Preston APRN, ready for discharge. Called [facility] and talked with Gayle, she is aware he came in to ER after discharging from them. Said that it was not recommended he go home, and that Kaitlin with [facility] had checked into [facility] paying for SNF, and pt is not service connected enough to VA to pay for SNF. Asked if they are willing to have him come back for skilled stay since in the hospital again and she said no they are not, due to pt non compliance, doesn't like to follow doctors instructions or take his meds as they are prescribed, into holistic medicine, which is fine, but if he isn't willing to follow his treatment plan then they aren't willing to accept him back. Tried calling Kaitlin with [facility] and she is out this week, talked with Louise at [facility], she said she discussed Mr. Jenkins with Kaitlin and he is not service connected for VA to pay for SNF, and if [facility] is saying no to him then they will not accept either for the same reasons. Will talk with patient.
--- NOTE | 2016-10-06 15:24 | NUR ---
Talked with patient this morning about what he wants to do on discharge. Difficult to stay on task in conversation, wants to sidebar about his health issues. Explained to him that [facility] is not going to accept him back, asks about [facility] since they are contracted with the [facility]. Explained to him that Kaitlin with [facility] checked his VA benefit and he is not service connected enough for VA to pay for fdc, even at a VA contracted home. Tells me all the reasons VA should pay for his care. Explained to him if he wants the VA to pay for his care at SNF, he is going to have to contact the chief financial officer for his [facility] to work on getting him more service connected. Explained in the meantime, Medicare will cover a skilled stay as long as he works with therapy and complies with their rules for covering a skilled stay. Asked him if he plans on going home on discharge or if he wants me to assist him in finding a fdc facility for a skilled stay. He says he doesn't think he can go home, says okay to start referral to [facility]. Called Maribel at [facility] and started referral there, she will look at referral in the morning and call me. Ready anytime.
--- NOTE | 2016-10-06 15:56 | NUR ---
A-SCREENED D/T LOS ON 2L O2 VIA NC; HX: COPD HT: 73 IN. WT: 56.7 KG. BMI: 16.5 LABS: NA 136, K+ 4.0, GLU 99, BUN 14, FLEET ADMINISTRATIVE ASSISTANT 0.7, ALB 2.7 MEDS: DELTASONE, MERREM, LEVAQUIN, ALDACTONE, PROTONIX. DIET RX: REGULAR W/FLUID RESTRICT. PO INTAKE 50-100% EST NUTR NEEDS: 5246-0442 KCALS (30-35 KCALS/KG) 85-113 GM PROTEIN (1.5-2.0 GM/KG) 1 ML FLUID/KCAL VISITED W/PT RE: APPETITE, INTAKE, WT, ETC. PT REPORTS A GOOD APPETITE. HIS WT IS UP FROM 09/22 ADMIT, BUT STILL WAY BELOW IBW OF 83.6 KG. PT STATES THAT 4 YEARS AGO HE WEIGHED 175 LBS. HE STATES THAT AT HOME HE SNACKS AND EATS QUITE A BIT. DISCUSSED WAYS TO INCORPORATE MORE PROTEIN/KCALS INTO HIS DIET (MAORI YOGURT, SMOOTHIES, PROTEIN SOURCES, 6-8 SMALL MEALS/DAY, ETC.) PT HAS TAKEN ENSURE AT HOME AND IN HOSPITAL BEFORE. HE WAS AGREEABLE TO RECEIVE IT AGAIN, BUT REQUEST VERY ADAMANTLY NO CHOCOLATE. HE WILL HAVE TO ASK HIS NURSE FOR THE CUP OF ICE THAT HE WANTS WITH IT. D-AT NUTRITION RISK W/SEVERE MALNUTRITION R/T INADEQUATE NUTRIENT INTAKE W/ INCREASED PROTEIN NEEDS D/T COPD AEB SEVERE FAT LOSS (ORBITAL REGION, TRICEPS, PROMINENT RIBS), SEVERE MUSCLE WASTING (SUNKEN TEMPLES, PROTRUDING CLAVICLE, SQUARE SHOULDERS, MUSCLE WASTING AT CALVES), BMI OF 16.5, 68% OF IBW. I-1)START ENSURE ENLIVE TID; NO CHOCOLATE 2)ENCOURAGED PT TO CONTINUE W/ENSURE OR SUPPLEMENT OF CHOICE UPON DISCHARGE; PT WAS AGREEABLE TO THIS. M/E-GOAL: PO INTAKE >/=75% OF MEALS AND SUPPLEMENT FOR DURATION OF ADMIT 1)F/U PO INTAKE, SUPPLEMENT, WT, AND POC IN 3-5 DAYS 2)ASSIST NEEDED
--- NOTE | 2016-10-06 17:32 | NUR ---
Patient is alert and oriented, VSS, on room air. Tyler in place with 1650 out, started as bloody overnight but has been clear with a few small clots throughout the day. He states he feels better and can breathe better but is only at about 70%. Has a fluid restriction of 1750ml, has had 980ml so far. Will need to be placed, since he was discharged from [facility] prior to admission.
--- NOTE | 2016-10-07 00:51 | NUR ---
SIGNIFICANT EVENT: Pt alert & oriented. VSS on 2L. Continues to refuse Lipitor. Tyler patent, draining light red urine - no clots. Needs placement. Cardiac diet, 1750 fluid restrict. Independent in room - will call if SOB and needs assistance. Cooperative with cares.
[2016-10-07 05:00] LABS: ANION GAP 9.4 (10.0-19.0); BLOOD UREA NITROGEN 16 mg/dL (6-24); CALCIUM 8.2 mg/dL (8.5-10.5); CHLORIDE 100 mMol/L (96-110); CO2 30 mMol/L (22-32); CREATININE 0.6 mg/dL (0.6-1.3); POTASSIUM 4.4 mMol/L (3.7-5.1); SODIUM 135 mMol/L (135-145)
--- NOTE | 2016-10-07 10:30 | NUR ---
Left a message for Maribel at [facility] to see if they would accept? 1420 Maribel called and she is on her way to assess patient. 1450 Updated patient and wrote my name on his marker board. Updated his nurse and charge.
--- NOTE | 2016-10-07 11:25 | NUR ---
Called Maribel at [facility] and left voicemail asking what they are thinking about referral I sent to them. Waiting to hear back.
--- NOTE | 2016-10-07 14:24 | NUR ---
Pt called and left message on answering machine in care management that he needs a tshirt to leave in, doesn't have one here. Took him a tshirt from clothes closet. Discussed with him that I started a referral to [facility], have a call in to them but they haven't called me back yet to let me know if they will accept. Explained again to him that if he wants the [place] to pay for prison as some point, he will have to try to get more service connected and needs to get in touch with his jail officer in [place] for that. Explained that when he goes to [facility] or whereever will accept him, Medicare will pay for his skilled stay as long as he is working with therapies, if he refuses, or can't for any reason, then Medicare won't pay for his stay and he will have to figure out what he is going to do. Told him if he thinks it won't be a short skilled stay to work with therapies daily to get stronger and go home, that it will be extermination supervisor care, then he needs to apply for Medicaid to pay for prison, and will have to spend down his resources. He then tells me his only problem is this bleeding in his urine, and if they could figure that out everything would be better. Says he wants to see the urologist again. Offered to get him Dr Gil office number so he can call and ask to talk with Dr Lucero directly as he doesn't seem to be following daily here, and he says he has it and doesn't want to call him. Asked him if he has talked with hospitalist about his medical concerns and he says he has. Explained aged or disabled care worker is following to assist with dc planning, told him we will let him know when we know more.
[2016-10-08 04:40] LABS: ANION GAP 10.1 (10.0-19.0); BLOOD UREA NITROGEN 21 mg/dL (6-24); CALCIUM 7.8 mg/dL (8.5-10.5); CHLORIDE 100 mMol/L (96-110); CO2 30 mMol/L (22-32); CREATININE 0.7 mg/dL (0.6-1.3); POTASSIUM 4.1 mMol/L (3.7-5.1); SODIUM 136 mMol/L (135-145)
--- NOTE | 2016-10-08 05:19 | NUR ---
Significant Event:pt alert and oriented x4. pleasant [facility] staff. does refuse most cares. refused hs lipitor also. foely patent with 1900ml of clear yellow urine out, no blood or blood clots noted. pt denies pain. pt was started on ceftin 250mg po. first dose was given at 1900 and pt starte to complain of chills and itching rash to chest arond 2330. Per orders, stop the ceftin, give 50mg of bendadryl 1 time as well at 300mg of zantac 1 time. pt rash and chills improved during the night and pt has rested well. vss. pt continues to wear o2 2L per nasal cannula. pt up ad darrick in room. refused to take gaetano hose off at hs. compliant with fluid restriction. iv to left ac saline locked. pt takes medication whole. denies pain when asked. pt uses call light when needing assistance. Follow up:
--- NOTE | 2016-10-08 12:45 | NUR ---
Maribel left a message on [facility], Co-workers phone, that they can not accept patient. 1315 Spoke with patient about other options - [facility] and [facility]. Not open to either, wants to go home with [facility]. No preference on who. 1340 Updated Oanh Cristobal. [address] Multani to update on patients wishes. She hopes he will be ready for discharge tomorrow. 1450 Spoke to Radha with [facility]. Faxed referral. She is off tomorrow so call the office. 1500 Updated patient - his sister could probably be here around [phone] tomorrow to take him home pending him being discharged. Placed face to face on the chart and flagged. Note on chart about calling and faxing [facility]. Updated Charge Nurse Sunshine and Dr Multani on the proposed discharge time.
--- NOTE | 2016-10-08 16:40 | NUR ---
Significant Event:PT. A/O AND COOPERATIVE. DENIES PAIN. UP IN ROOM AND SHOWER WITH STANDBY ASSIST. UP IN CHAIR MOST OF DAY. SOB WITH ANY ACTIVITY. ON O2 AT 2L PER NC. GUADALUPE CATHETER DRAINING CLEAR YELLOW URINE. CHEST RASH MUCH LESS AND REFUSED BENADRYL. KENY HOSE ON AFTER SHOWER. IV LFA. PLAN IS TO GO HOME TOMORROW ABOUT 1400 WITH HOME HEALTH. Follow up:
--- NOTE | 2016-10-09 04:28 | NUR ---
Significant Event:pt alert and oriented x4.very plesant with staff and cares. continues to have rash to chest and upper thigh area. rash did get worse as night went on. in to assess patient. gave orders for iv medication and lotion. pt did improve following medication however rash is still visible. pt up ad darrick will be going home today. pt orona patent with clear yellow urine.pt iv to left ac patent flushes well. takes medication whole. lipitor dose decreased and patient compliant with dose given.pt will be discharging to home in [place] today. Follow up:
--- NOTE | 2016-10-09 17:07 | NUR ---
A - NUTRITION FOLLOW-UP. GAINED 6# IN 2 WEEKS PER RECORD. LABS: ALB 2.7, PO4 1.6, A1C 6.2% MEDS: ON PREDNISONE DIET: REGULAR W/ 1750ML FLUID RESTRICTION W/ ENSURE ENLIVE TID. INTAKE 66% X11 MEALS, MOSTLY 50-100%. GOOD APPETITE PER PT AND LIKES ENSURE ENLIVE. EST NEEDS: [id number] KCAL, 85-113 GRAMS PROTEIN, FLUID NEEDS: 1ML/KCAL D - SEVERE MALNUTRITION RELATED TO INADEQUATE NUTRIENT INTAKE W/ INCREASED PROTEIN NEEDS D/T COPD EVIDENCED BY NFPE RESULTS AND BMI 16.5. I - CONTINUE W/ ENSURE ENLIVE TID. M/E - GOAL: PT WILL CONTINUE TO CONSUME >65% OF MEALS AND AT LEAST ONE ORAL SUPPLEMENT IN 5-7 DAYS.
--- NOTE | 2016-10-09 17:14 | NUR ---
PT. UP TO CHAIR AND SOB WITH ANY ACTIVITY. REMAINS ON 2L PER NC. DENIES PAIN. A/O. HAD GENERALIZED RASH ON TRUNK. CALAMIN LOTION APPLIED X2. IV LFA. GUADALUPE DRAINING CLEAR YELLOW URINE. PLAN IS TO GO HOME YET TODAY.
[2016-10-10 05:40] LABS: ANION GAP 12.5 (10.0-19.0); BLOOD UREA NITROGEN 22 mg/dL (6-24); CHLORIDE 97 mMol/L (96-110); CO2 28 mMol/L (22-32); CREATININE 0.8 mg/dL (0.6-1.3); MAGNESIUM 2.2 mg/dL (1.8-2.6); PHOSPHORUS 3.5 mg/dL (2.5-4.9); POTASSIUM 4.5 mMol/L (3.7-5.1); SODIUM 133 mMol/L (135-145)
--- NOTE | 2016-10-10 07:38 | NUR ---
Significant Event: Patient is alert and oriented x 3. VSS on 2L of O2. Up with SBA. Generalized rash to chest, abdomen, back, and arms noted. Benadryl given at 1847. Calamine lotion applied x 1. BM x 1. Tyler intact, 1300 mls out this shift. Patient on 2250 ml fluid restriction. Left forearm IV, saline locked. Patient is cooperative with cares. Follow up: Plan is to go home with home health.
[2016-10-10] MEDS ORDERED: DELTASONE10 MG PO (11:26)
[2016-10-10] MEDS ORDERED: FLORASTOR250 MG PO (11:27)
[2016-10-10] MEDS ORDERED: BENADRYL25 MG PO (11:30)
[2016-10-10] MEDS ORDERED: CALADRYL 1%-8%177 ML TOP (11:32)
--- NOTE | 2016-10-10 12:32 | NUR ---
D:Orders received for patient to be dismissed. I:Dismissal orders were prepared and reviewed with the patient by the virtual nurse using the computer technology. The following information was reviewed: diet and activity recommendations for home, review of orona cath care for home, abnormal s/s to monitor for and to report to MD if any occur, home medications/changes to home medications/new prescription medications, plans for follow up appointments with Dr. Ling and Dr. Lucero next week. Jt teaching given to and reviewed with the patient on the following topics: Discharge Instructions for [place] Catheter Care, Preventing DVT's, Florastor, Prednisone, Benadryl, Caladryl. A calendar with his prednisone taper was given to and reviewed with the patient. R:The patient verbalized understanding of above instructions and denied further questions regarding dismissal teaching. P:The patient's primary nurse was informed that the dismissal teaching had been complete. The patient will be dismissed later this afternoon when his ride arrives. Roni LEMUS
--- NOTE | 2016-10-10 13:15 | NUR ---
Radha with [facility] called and wanted to know if patient was leaving, will have to call her back. 1325 Virtual Nurse called and patient is ready to go. 1410 Faxed orders, meds and face to face to #[phone]. Followed up with patient and nurse, getting ready to go, no needs. Let Radha know they would be headed out shortly.
== END 2016-10-10 14:47 | disposition home health service (06) | DRG 189 ==
LOC: GMED 19:58 → GMSU 22:09
PROVIDERS: Emergency Medicine; Family Medicine; Internal Medicine; Nurse Practitioner Family; ADMIT Internal Medicine
DX: J96.21 Acute and chronic respiratory failure with hypoxia (principal); E43 Unspecified severe protein-calorie malnutrition; J44.1 Chronic obstructive pulmonary disease with (acute) exacerbation; E87.1 Hypo-osmolality and hyponatremia; Z68.1 Body mass index [BMI] 19.9 or less, adult; J96.11 Chronic respiratory failure with hypoxia; Z99.81 Dependence on supplemental oxygen; I10 Essential (primary) hypertension; I25.10 Atherosclerotic heart disease of native coronary artery without angina pectoris; N40.1 Benign prostatic hyperplasia with lower urinary tract symptoms; R31.0 Gross hematuria; R33.9 Retention of urine, unspecified; Z96.0 Presence of urogenital implants
CPT/HCPCS: J1200; J2185; J2920; J2930; J7030; J7040; J7050; J7512

== ENCOUNTER 2016-10-10 15:08 | Emergency (ER) | payer MEDICARE, OTHER ==
--- NOTE | ~2016-10-10 | ER ---
PATIENT'S NAME: ELVIS VICENTE [facility] AGE: 71 Y [address] ROOM: [place] [address] LOCATION: ED ADMIT DATE: 10/10/2016 ER/Outpatient Report DISCHARGE DATE: 10/10/2016 FAMILY PHYSICIAN: Phoenix Ling PA-C ATTENDING PHYSICIAN: Carmen Moody TIME OF ARRIVAL: 1508 hours. TIME SEEN: 1542 hours. IDENTIFICATION: A 71-year-old male. CHIEF COMPLAINT: Difficulty breathing. HISTORY OF PRESENT ILLNESS: The patient is a 71-year-old male, who was just discharged from the hospital, had just gotten out to his car and felt like he could not catch his breath and was short of breath. He is on home O2 at 2 L per nasal cannula. He increased his O2 to 4 L and came back into the lobby of the hospital and was escorted to the emergency room. The patient was hospitalized on October 01 for shortness of breath and blood in his urine. The patient has a history of COPD. PAST MEDICAL HISTORY: ALLERGIES: AMOXICILLIN AND IBUPROFEN. CURRENT MEDICATIONS: 1. Aspirin 325 mg daily. 2. Spironolactone 25 mg daily. 3. Diltiazem 120 mg daily. 4. Tamsulosin 0.4 mg at bedtime. 5. Atorvastatin 20 mg at bedtime. 6. Clopidogrel 75 mg daily. 7. Pantoprazole 40 mg daily. 8. Nitroglycerin p.r.n. 9. Acetaminophen p.r.n. 10. DuoNeb 5 times daily and q.2 hours p.r.n. 11. Prednisone 20 mg daily for 4 days, 15 mg daily for 3 days, 10 mg daily for 2 days, 5 mg daily for one day. 12. Florastor capsule one tablet b.i.d. PATIENT'S NAME: ELVIS VICENTE [facility] AGE: 71 Y [address] ROOM: [place] [address] LOCATION: ED ADMIT DATE: 10/10/2016 ER/Outpatient Report DISCHARGE DATE: 10/10/2016 FAMILY PHYSICIAN: Phoenix Ling PA-C ATTENDING PHYSICIAN: Carmen Moody 13. Diphenhydramine 25 mg 1 to 2 q.6 hours p.r.n. 14. Caladryl lotion p.r.n. for itchiness. MEDICAL PROBLEMS: History of [id number] SC, COPD, pneumonia, acute urinary retention status post indwelling Tyler catheter, hemoptysis, protein calorie malnutrition, chronic hypoxic respiratory failure, BPH, coronary artery disease, status post anomalous left circumflex stenting. PAST SURGICAL HISTORY: Cardiac stent and multiple sinus surgery. SOCIAL HISTORY: The patient lives in [place]. Tobacco use, quit August 21, 50-pack year history. Alcohol use, denies. Drug use, denies. REVIEW OF SYSTEMS: The patient has an erythematous rash which he said was a side effect or an allergic reaction from his antibiotics. REVIEW OF SYSTEMS: Otherwise negative. FAMILY HISTORY: Positive for diabetes and macular degeneration. PHYSICAL EXAMINATION: VITAL SIGNS: Height 6 feet 4 inches, weight 55.5 kg. Blood pressure 178/94, pulse 130, which came immediately down to less than 100, respiratory rate 42, temp 98.9, sats 88% on 2 L per nasal cannula. Recheck blood pressure 163/84, heart rate 88, sats 100%, and respiratory rate 16. GENERAL: A 71-year-old male, somewhat anxious, in no acute distress. HEENT: Head is normocephalic and atraumatic. Eyes, pupils equal and reactive to light and accommodation. Extraocular movements are intact. TMs not visualized. Oropharynx benign. NECK: Supple. No lymphadenopathy. LUNGS: Diminished throughout, but no wheezes. HEART: Sinus tachycardia, resolved to sinus rhythm. ABDOMEN: Bowel sounds present. Soft, nondistended, nontender. SKIN: The patient has diffuse erythematous maculopapular rash. NEURO: No focal deficit. EXTREMITIES: No edema. No calf tenderness. EMERGENCY DEPARTMENT COURSE: The patient was given a DuoNeb aerosol treatment with improvement of his PATIENT'S NAME: ELVIS VICENTE [facility] AGE: 71 Y [address] ROOM: [place], [place] [address] LOCATION: [facility] ADMIT DATE: 10/10/2016 ER/Outpatient Report DISCHARGE DATE: 10/10/2016 FAMILY PHYSICIAN: Phoenix Ling PA-C ATTENDING PHYSICIAN: Carmen Moody. DIAGNOSTIC DATA: One-view chest x-ray was obtained, which showed severe emphysema with hyperinflation, but no acute findings. EKG sinus tachycardia 104 beats per minute, right atrial enlargement, no significant change when compared to prior EKG dated September 22. Hemoglobin 12, hematocrit 34.4, platelets 203, white count 18.9 with 94% segs, 4% bands. Sodium 133, potassium 4.3, chloride 97, CO2 26, BUN 24, creatinine 1.0, blood sugar 209. Liver enzymes normal. Troponin I less than 0.040. CK-MB 4.2 and magnesium 2.2. IMPRESSION: Chronic obstructive pulmonary disease. PLAN: The patient with high heat today and humidity, just got acutely short of breath when going out into the hot air. We had his ride cool down the car prior to picking him back up. We gave him a DuoNeb treatment here, O2 as directed per nasal cannula, continue all current medications in hospital, discharge recommendations, and cares and follow up. [facility], as scheduled, October 14. Follow up sooner if any problems or concerns. Follow up immediately if any respiratory distress. The patient understands and agrees and all questions have been answered and I also discussed this patient with Dr. Multani. CARMEN MOODY MD CAR/modl /[id number] d: 10/11/161913 t: 10/12/16 0834, OUTPATIENT REPORT
[~2016-10-10 15:08] MED LIST changes: +BENADRYL25 MG PO; +CALADRYL 1%-8%177 ML TOP; +DELTASONE10 MG PO; +FLORASTOR250 MG PO
[2016-10-10 16:09] LABS: HEMATOCRIT 34.4 % (37.0-53.0); MCH 33.1 pg (27.0-34.0); MCHC 34.9 gm/dL (32.0-36.5); MPV 9.4 fl (9.4-12.4); PLATELET COUNT 203 K/uL (150-450); RBC 3.62 M/uL (3.50-5.50); RDW-CV 13.5 % (11.9-14.6)
[2016-10-10 16:11] LABS: WBC 18.9 K/uL (4.0-11.0)
[2016-10-10 16:18] LABS: PROTIME 10.5 SECONDS (9.8-11.4); PTT 26 SECONDS (25-32)
[2016-10-10 16:29] LABS: ALK PHOS 79 IU/L (33-138); ALT 38 IU/L (12-78); ANION GAP 14.3 (10.0-19.0); AST 18 IU/L (10-40); BLOOD UREA NITROGEN 24 mg/dL (6-24); CALCIUM 7.8 mg/dL (8.5-10.5); CHLORIDE 97 mMol/L (96-110); CO2 26 mMol/L (22-32); CPK 43 IU/L (35-332); MAGNESIUM 2.2 mg/dL (1.8-2.6); POTASSIUM 4.3 mMol/L (3.7-5.1); SODIUM 133 mMol/L (135-145); TOTAL BILIRUBIN 0.5 mg/dL (0.0-1.5); TOTAL PROTEIN 5.8 g/dL (6.0-8.4)
[2016-10-10 16:46] LABS: ABSOLUTE NEUTROPHIL CT (ANC) 18.5 K/uL (1.4-9.0); BANDED NEUTROPHIL # 0.8 K/uL (0.0-0.1); BANDED NEUTROPHILS % 4 %; LYMPHOCYTE # 0.2 K/uL (0.8-4.0); LYMPHOCYTE % 1 %; MONOCYTE # 0.2 K/uL (0.0-1.0); SEGMENTED NEUTROPHIL # 17.8 K/uL (1.4-9.0); SEGMENTED NEUTROPHIL % 94 %
== END 2016-10-10 17:50 | disposition disaster alternative care site (69) ==
LOC: GMED 15:08
PROVIDERS: Family Medicine
DX: J44.9 Chronic obstructive pulmonary disease, unspecified (principal); I25.2 Old myocardial infarction; J18.9 Pneumonia, unspecified organism; J96.11 Chronic respiratory failure with hypoxia; I25.10 Atherosclerotic heart disease of native coronary artery without angina pectoris; N40.0 Benign prostatic hyperplasia without lower urinary tract symptoms; R33.8 Other retention of urine; Z88.1 Allergy status to other antibiotic agents; Z88.6 Allergy status to analgesic agent; Z79.82 Long term (current) use of aspirin; Z79.899 Other long term (current) drug therapy; Z98.890 Other specified postprocedural states; Z87.891 Personal history of nicotine dependence

== ENCOUNTER → 2016-10-17 | Outpatient (CLI) | payer MEDICARE, OTHER ==
[~2016-10-17] MED LIST changes: +DELTASONE20 MG PO; +LEVAQUIN750 MG PO; +LEVOTHROID(SYN75 MCG PO; +PROVENTIL OR V6.7 GM INH; +PULMOZYME1 AMP INH; +[UNRECOGNIZED DRUG - OTHER] PO
== END | disposition disaster alternative care site (69) ==
LOC: GRAD 15:44
DX: R31.0 Gross hematuria (principal); N40.0 Benign prostatic hyperplasia without lower urinary tract symptoms; I70.90 Unspecified atherosclerosis; K76.89 Other specified diseases of liver

== ENCOUNTER 2016-10-24 18:12 | Inpatient (IN) | payer MEDICARE, OTHER ==
[~2016-10-24] VITALS: Ht 185.4 cm; Wt 58.8 kg
--- NOTE | ~2016-10-24 | CON ---
PATIENT'S NAME: VICENTE [facility] AGE: 71 Y [address] ROOM: [facility] [place] [address] LOCATION: GPCU ADMIT DATE: 10/24/2016 Consultation DISCHARGE DATE: FAMILY PHYSICIAN: PHYSICIAN, UNKNOWN ATTENDING PHYSICIAN: KLARISSA WATKINS REFERRING PHYSICIAN: CARMEN LINDSAY MD PULMONARY CONSULT NOTE REASON FOR CONSULTATION: Acute exacerbation of COPD with acute on chronic hypoxic respiratory failure. HISTORY OF PRESENT ILLNESS: A 71-year-old male with history of severe COPD, extensive smoking history, chronic hypoxic/hypercapnic respiratory failure, on home oxygen 2 L via nasal cannula 24/7 since January last year. He was admitted with acute exacerbation, requiring intermittent BiPAP and bronchodilators and prednisone 80 mg p.o. daily. He had been following with a public relations senior associate in the past, but never had any PFT done, was scheduled to get one in the coming week. He denies any fever but complains of excessive cough with mucus production. ALLERGIES: MULTIPLE ALLERGIES NOTED, TO IBUPROFEN, CEPHALOSPORINS, AMOXICILLIN, AND ZITHROMAX. PAST MEDICAL HISTORY: Severe COPD; chronic hypoxic/hypercapnic respiratory failure, on 2 L oxygen via nasal cannula, 13/10; hypertension, coronary artery disease. SOCIAL HISTORY: Extensive smoking history. Approximately 50 pack year as per the medical records. The patient was smoking until August 2016. PHYSICAL EXAMINATION: VITAL SIGNS: Temperature 98.9, pulse 115 per minute, respiration 28 per minute, blood pressure 146/64, sats 97% on 2 L via nasal cannula. GENERAL: On oxygen 2 L via nasal cannula. Pursed lip breathing noted. RASPER MACHINE OPERATOR: Alert and oriented x3. CARDIOVASCULAR: S1, S2. Tachycardic. RESPIRATORY: Bilateral poor air entry. ABDOMEN: Scaphoid and nontender. EXTREMITIES: No edema. LABORATORY DATA: CBC: WBC 7.7, came down from 11.6; hemoglobin 11.4; hematocrit 34; platelet 204. BMP: Sodium 136, potassium 4.6, chloride 99, bicarb 30, BUN 15, PATIENT'S NAME: CINTHIA [facility] AGE: 71 Y [address] ROOM: [facility] [place] [address] LOCATION: GPCU ADMIT DATE: 10/24/2016 Consultation DISCHARGE DATE: FAMILY PHYSICIAN: PHYSICIAN, UNKNOWN ATTENDING PHYSICIAN: KLARISSA WATKINS creatinine 0.9. ABG: pH of 7.44, pCO2 of 45, pO2 of 59. IMAGING DATA: Imaging reviewed. Chest x-ray was done on 10/24/2016 showed hyperinflated lung castano with no acute infiltrate or effusion. ASSESSMENT AND PLAN: 1. Acute on chronic hypoxic/hypercapnic respiratory failure secondary to severe chronic obstructive pulmonary disease, on home oxygen, 24/7, 2 L by nasal cannula, requiring 3 to 4 L oxygen by nasal cannula while in the hospital. We will recommend BiPAP 10/5 p.r.n. during the daytime and continuous during the night. 2. Acute exacerbation of chronic obstructive pulmonary disease. Agree with bronchodilators and steroids. Recommend empiric antibiotic for 5 to 7 days with levofloxacin since the patient is allergic to cephalosporin and Zithromax. No documented PFT. End-stage chronic obstructive pulmonary disease should benefit from pulmonary rehab. Palliative Care consult would be appropriate. Thank you for the consulting pulmonology. We will continue to follow. MD LOBO SPRING/sunday /[id number] d: 10/26/161950 t: 10/30/16 1634, CONSULTATION REPORT
--- NOTE | ~2016-10-24 | HP ---
PATIENT'S NAME: ELVIS VICENTE [facility] AGE: 71 Y [address] ROOM: [place] [address] LOCATION: GPCU ADMIT DATE: 10/24/2016 History & Physical DISCHARGE DATE: FAMILY PHYSICIAN: PHYSICIAN, UNKNOWN ATTENDING PHYSICIAN: KLARISSA WATKINS DATE OF SERVICE: CHIEF COMPLAINT: Shortness of breath. HISTORY OF PRESENT ILLNESS: A 71-year-old gentleman with a past medical history of severe COPD, on home oxygen, currently smoker, also history of coronary artery disease presented to the emergency department with chief complaint of increasing shortness of breath for the past couple of days more than usual, increasing sputum production, and change in color. He also endorsed it is to be more than his normal shortness of breath. He denied any fever and chills, but stated that he is always cold. He denied any headache, trouble with the eyes, any trouble swallowing, any chest pain, abdominal pain, burning on urination, but did endorse having extremity swelling since he had been on the steroids. REVIEW OF SYSTEMS: All other systems reviewed are negative except what is mentioned in the HPI. ALLERGIES: THE PATIENT IS ALLERGIC TO AMOXICILLIN WELL IBUPROFEN AND CEFOXITIN. PAST MEDICAL HISTORY: COPD, hypertension, and coronary artery disease. FAMILY HISTORY: Significant for type 2 diabetes mellitus in mother. SOCIAL HISTORY: Currently, smoke more than 50 smoking history. MEDICATIONS: Medications are being reconciled now. PHYSICAL EXAMINATION: VITAL SIGNS: Blood pressure 100/62, pulse 73, respiratory rate of 32, and saturating 96% on 2 L of oxygen. GENERAL: In mild acute distress due to shortness of breath. Alert and oriented x3. PATIENT'S NAME: ELVIS VICENTE [facility] AGE: 71 Y [address] ROOM: [place] [id number] LOCATION: GPCU ADMIT DATE: 10/24/2016 History & Physical DISCHARGE DATE: FAMILY PHYSICIAN: PHYSICIAN, UNKNOWN ATTENDING PHYSICIAN: KLARISSA WATKINS HEENT: Head: Atraumatic, normocephalic. Eyes: Nonicteric. No pallor. GENERAL: Very cachectic patient. LUNGS: Decreased air entry in all lung castano with diffuse expiratory wheezes. ABDOMEN: Soft, nontender, nondistended. Bowel sounds present. EXTREMITIES: A +2 extremity edema. PSYCH: Normal affect, mood, and speech. NEURO: Cranial nerves 2 through 12 intact. No motor or sensory deficit. MUSCULOSKELETAL: No muscle tenderness or swelling noted. ENDOCRINE: No thyromegaly or myxedema noted. LYMPHATICS: No lymphangiitis or lymphadenopathy noted. LABORATORY DATA: Chest x-ray performed in the emergency department did not show acute any infiltrative changes, but was significant for hyperinflated lungs. All the lab work done in the emergency department was unremarkable including CBC and a BMP and troponin level. EKG was done, which showed normal sinus rhythm without acute ST-T wave changes. ASSESSMENT: 1. Acute hypoxic and hypercarbic respiratory failure on chronic hypoxic and hypercapnic respiratory failure, chronic obstructive pulmonary disease exacerbation, and coronary artery disease. 2. Hypertension. 3. Elevated TSH. PLAN: We are going to admit this patient to the hospital. We are going to start him on DuoNeb, steroids, Symbicort. P.r.n. BiPAP and free T4 to be added to the already done labs. We will add antibiotics if procalcitonin comes back positive. He does have lower extremity swelling and we will diurese him yet tomorrow. Further management will depend on his progress in the hospital. MD MATHEW SALMON/sunday /[id number] D: [id number] T: [id number] HISTORY & PHYSICAL
--- NOTE | ~2016-10-24 | DS ---
PATIENT'S NAME: ELVIS JENKINS [facility] AGE: 71 Y [address] ROOM: [id number] [place], [place] [address] LOCATION: GPCU ADMIT DATE: 10/24/2016 Discharge Summary DISCHARGE DATE: 10/31/2016 FAMILY PHYSICIAN: Physician, Unknown ATTENDING PHYSICIAN: Lauren Weller REASON FOR ADMISSION: Shortness of breath. PRINCIPAL DIAGNOSIS: End-stage chronic obstructive pulmonary disease with acute exacerbation. SECONDARY DIAGNOSES: 1. Tobacco dependence, ongoing. 2. Essential hypertension. 3. Coronary artery disease. 4. Hypothyroidism. 5. Benign prostatic hypertrophy. PENDING LABS AND TESTS AT THE TIME OF DISCHARGE: Will need repeat TSH in 6 weeks with PCP. HOSPITAL COURSE: Mr. Jenkins is a pleasant 71-year-old male with medical history noted above. Most notable for end-stage COPD, on home oxygen and current ongoing tobacco dependence, who has multiple recent admissions for COPD exacerbations, presenting to this episode with same. The patient notes increasing cough with shortness of breath and difficulty with expectorating secretions. He also notes a change in color. At home, he has been using cigarettes to "open his lungs." He denied recent fevers, chills, or other contributing symptoms. On admission, he was started on guaifenesin as well as IV steroids, and Pulmonary was consulted and initially, the patient did refuse the plan for 5-7 days of Levaquin therapy or further antibiotics given his prior adverse reactions to specifically azithromycin with concerns of rash. Thus, no further antibiotics were given as the patient was afebrile without significant leukocytosis aside from that which could be attributable to steroids. The patient did well and had saturated well on home oxygen of 2 L, occasionally up to 3 L, but essentially stable at his baseline from near time of admission. Stay was prolonged with difficulty managing secretions and ongoing cough. Prior to discharge, chest percussive therapy as well as addition of Pulmozyme nebulized treatments seemed to be the most effective agents at improving the patient's status. Chest x-ray on the date of discharge did not show any acute pulmonary congestion nor infectious concerns or consolidations. The remainder of the patient's medical course was largely unremarkable during stay. However, it was noted that his TSH on admission was 46, prompting initiation of levothyroxine therapy. This will need to be followed up in 6 weeks. The patient was discharged home in stable condition, PATIENT'S NAME: ELVIS JENKINS [facility] AGE: 71 Y [address] ROOM: [id number] [place], [place] [address] LOCATION: GPCU ADMIT DATE: 10/24/2016 Discharge Summary DISCHARGE DATE: 10/31/2016 FAMILY PHYSICIAN: Physician, Unknown ATTENDING PHYSICIAN: Lauren Weller though with end-stage COPD, goals of care were discussed on multiple occasions as well as his frequency of hospital re-admission. Palliative care also did see the patient while he was here. MEDICATIONS AND PERTINENT CHANGES: 1. Addition of Pulmozyme and levothyroxine. 2. Prednisone increased to taper starting at 40 mg daily, will decrease every 4 days going to 20, 15, 10, 5, and likely remain on 5 indefinitely or at least until Pulmonary followup. CONSULTANTS: Dr. Chaudhry with Pulmonary as well as Palliative. CONDITION ON DATE OF DISCHARGE: VITAL SIGNS: Last noted vital signs prior to discharge: Temp 98.4, pulse 98, respirations 20, blood pressure 160/68, saturating 97% on 2 L. GENERAL: No acute distress, comfortable, sitting up in bed. CARDIOVASCULAR: Mildly tachycardic without murmurs, rubs, or gallops appreciated. RESPIRATORY: Very diminished bilaterally without appreciable wheeze. Faint bibasilar rhonchi. Saturating well on 2 L with pursed-lip breathing, though otherwise no additional accessary muscle use. ABDOMEN: Soft, nontender, and nondistended. EXTREMITIES: Without edema. NEUROLOGIC: Alert and oriented. Cooperative. DISPOSITION: The patient will be discharged home with followup with PCP in 1- 2 weeks as well as TSH check in 6 weeks, follow up with Pulmonary as per Dr. Chaudhry. Diet and activity: As tolerated. The patient was instructed to stop smoking. Continue the current nebulizers as well as Pulmozyme nebs and store those in the refrigerator and out of direct light as well as to continue prednisone as per written taper on discharge. Time spent on the date of discharge including direct patient care and coordination of discharge activities was 25 minutes. MD DANNA ORO/sunday PATIENT'S NAME: ELVIS JENKINS [facility] AGE: 71 Y [address] ROOM: [address] [address] [facility] ADMIT DATE: 10/24/2016 Discharge Summary DISCHARGE DATE: 10/31/2016 FAMILY PHYSICIAN: Physician, Unknown ATTENDING PHYSICIAN: Lauren Weller /[id number] d: 11/01/16 0001 t: 11/01/16 1248, DISCHARGE SUMMARY
--- NOTE | ~2016-10-24 | CON ---
PATIENT'S NAME: ELVIS VICENTE [facility] AGE: 71 Y [address] ROOM: [place] [address] LOCATION: GPCU ADMIT DATE: 10/24/2016 Consultation DISCHARGE DATE: FAMILY PHYSICIAN: PHYSICIAN, UNKNOWN ATTENDING PHYSICIAN: KLARISSA WELLER DATE OF CONSULTATION: 10/27/2016 PALLIATIVE CARE CONSULTATION LOCATION: [place] [address]. REFERRING PHYSICIAN: Klarissa Weller MD REASON FOR CONSULTATION: This is a Palliative Care referral for goals of care, end-stage COPD, and advance directives. HISTORY OF PRESENT ILLNESS: This is a frail 71-year-old male who was admitted on 10/24/2016, has had previous admissions on 10/01, 09/23, and 08/21 for his COPD exacerbations. He also has a history of coronary artery disease. The patient was admitted for increasing shortness of breath at home, just not being able to breath. Had no fevers or chills. No abdominal pain. Appetite has been good, and no problems with constipation. The patient did not sleep well due to having BiPAP on and increased steroid doses. PAST MEDICAL HISTORY: 1. COPD. 2. Hypertension. 3. Coronary artery disease. FAMILY HISTORY: Father had heart problems. Mother had diabetes. Had a brother who in a car and train accident, and a sister had a heart valve replaced. Brother also had macular degeneration. PAST SURGICAL HISTORY: 1. Colon resection. 2. Sinus surgeries in 1996, 1979, and 1989. 3. Had stents placed after an CA. PATIENT'S NAME: ELVIS VICENTE [facility] AGE: 71 Y [address] ROOM: [address] [place] [address] LOCATION: GPCU ADMIT DATE: 10/24/2016 Consultation DISCHARGE DATE: FAMILY PHYSICIAN: PHYSICIAN, UNKNOWN ATTENDING PHYSICIAN: KLARISSA WELLER ALLERGIES: AMOXICILLIN, IBUPROFEN, AND CEFTRIAXONE. CURRENT MEDICATIONS: 1. Dulera 200 mcg/5 mcg 2 puffs b.i.d. 2. Aspirin 325 mg daily. 3. Deltasone 20 mg t.i.d. 4. Flomax 0.5 mg daily. 5. Florastor 250 mg b.i.d. 6. Synthroid 75 mcg daily. 7. Lipitor 20 mg at bedtime. 8. Plavix 75 mg daily. 9. Protonix 40 mg daily. 10. Lovenox 40 mg daily p.r.n. 11. Ipratropium and albuterol every 2 hours p.r.n. 12. [place] nasal spray 1 to 2 sprays q.i.d. p.r.n. nasal congestion. 13. Benadryl 25 mg to 50 mg every 6 hours p.r.n. itching, sleep. 14. Guaifenesin AC 15 mL every 6 hours p.r.n. 15. Tylenol 650 mg every 4 hours p.r.n. pain. 16. Nitrostat 0.4 mg sublingual p.r.n. chest pain. 17. Caladryl apply to affected areas of itching. REVIEW OF SYSTEMS: A complete review of systems was done and is negative except as mentioned in the HPI. PHYSICAL EXAMINATION: GENERAL APPEARANCE: This is frail 71-year-old, male, in some respiratory distress. He is up in the chair, gets very short of breath with much cough, has a nonproductive cough. Alert and oriented. VITAL SIGNS: Temperature 97.4, pulse 91, respirations 22, blood pressure 150/82, and O2 sats 91% on 1 L of oxygen. He is 6 feet 1 inch, weighs 121 pounds with a BMI of 16. SKIN: Warm and dry. Color pale. No toenails on feet. Feet skin is reddened and sensitive to touch. HEENT: Head; normocephalic and atraumatic. Sclerae are nonicteric. Conjunctivae are pale, pink. Mouth is pink and dry. No exudate. LYMPHATICS: No cervical adenopathy or thyromegaly. Trachea, midline. RESPIRATORY: Very diminished bilaterally. No wheezes or rales. CARDIAC: S1 and S2 without murmurs or bruits. ABDOMEN: Soft, nontender. Positive bowel tones. No hepatosplenomegaly. NEUROLOGIC: Grossly intact. MUSCULOSKELETAL: Decreased muscle mass in extremities. No cyanosis or deformities. PATIENT'S NAME: ELVIS VICENTE [facility] AGE: 71 Y [address] ROOM: [place] [address] [facility] AD[facility] DATE: 10/24/2016 Consultation DISCHARGE DATE: FAMILY PHYSICIAN: PHYSICIAN, UNKNOWN ATTENDING PHYSICIAN: KLARISSA WELLER Palliative performance scale is 50%, mainly sitting and lying, unable to do most of work, extensive disease, and considerable assistance needed. Intake is normal. Conscious level is full. IMPRESSION: 1. Dyspnea. 2. Weakness. 3. Fatigue and anxiety. 4. Insomnia. PLAN: 1. I met with the patient. Discussed chronic COPD, severe. The patient is feeling of being on a BiPAP and just could not tolerate BiPAP for more than an hour. Left it on a little bit longer, but he just could not tolerate BiPAP. Made his lungs hurt a lot and was coughing up blood. Discussed the patient's feelings and knowledge of his advanced COPD and frequent admissions. The patient only has a fair understanding. Has not been discussed stages of an advanced age. 2. Code status and advance directives. The patient is a full code. Discussed advance directives and where to get an advance directives. Gave a copy of advance directives and POLST form (Physician's Order for Life-Sustaining Treatment form. Discussed forms and answered questions and concerns on getting advance directives. Benefits and burdens of code status with advanced life support. Discussed the patient's feelings on life support. After discussion, he states he was still want to be a full code and would want to be on life support for 30 days and if no better than would want it removed. 3. Support at home. The patient's had . Does have a sister who lives down the road. Has Home Health that comes in and helps them. His goal is to return home and try to manage on his own. He is very adamant about not going to a care home. 4. We will continue to work on advance directives and long-term support as disease progresses. Total time was 60 minutes with 50 minutes for counseling and coordination of care, education on advance directives, and chronic disease. Thank you for allowing me to assist this patient and family. DEBBIE NEVAREZ NP FOR MD JADA VIVAR/sunday PATIENT'S NAME: ELVIS VICENTE [facility] AGE: 71 Y [address] ROOM: [place] [address] [facility] AD[facility] DATE: 10/24/2016 Consultation DISCHARGE DATE: FAMILY PHYSICIAN: PHYSICIAN, UNKNOWN ATTENDING PHYSICIAN: KLARISSA WELLER /[id number] d: 10/28/16 1545 t: 11/11/16 0909, CONSULTATION REPORT
--- NOTE | ~2016-10-24 | ER ---
PATIENT'S NAME: ELVIS VICENTE [facility] AGE: 71 Y [address] ROOM: [place] [address] LOCATION: GPCU ADMIT DATE: 10/24/2016 ER/Outpatient Report DISCHARGE DATE: FAMILY PHYSICIAN: PHYSICIAN, UNKNOWN ATTENDING PHYSICIAN: KLARISSA WELLER Admission date and time documented in medical record. I saw the patient at 1825 hours. CHIEF COMPLAINT: Shortness of breath with productive cough. HISTORY OF PRESENT ILLNESS: The patient is a 71-year-old male, who has had increasing shortness of breath over the past 3 days, worse today. Does have a productive cough of whitish phlegm. The patient by history has known COPD, emphysematous type. He has a history of tobacco abuse. He has a history of chronic hypoxic respiratory failure. He has been in and out of the hospital multiple times over the past few months. Did have a non-ST elevation myocardial infarction. Underwent cardiac cath in September with a stent placement. Does have a history of paroxysmal atrial fibrillation. He has had a past history of pneumonia. He is malnourished. He does have hypertension. No headache, eyes, ears, nose, throat, neck, or spine pain. Little lightheaded and dizzy at times. No syncope. No fall or trauma. No chest pain or chest tightness. No abdominal pain, nausea, vomiting, or diarrhea. No urinary frequency, urgency, or dysuria. Does have a history of benign prostatic hypertrophy, past history of urine retention. Does have peripheral edema, pitting, noncyanotic. No skin eruptions or rash. No history of neuro changes, psych issues, or endocrine problems. HOME MEDICATIONS: See attached medication list. ALLERGIES: PENICILLIN, IBUPROFEN, AND CEFTIN. SOCIAL HISTORY: Nonsmoker since August of 2016. Nondrinker. SIGNIFICANT PAST MEDICAL HISTORY: Atherosclerotic ischemic heart disease with coronary artery disease, status post non-ST elevation myocardial infarction, COPD, emphysema, pneumonia, urine retention, benign prostatic hypertrophy, malnutrition, chronic hypoxic respiratory failure, tobacco abuse, hypertension, hyponatremia, and paroxysmal atrial fibrillation. PATIENT'S NAME: ELVIS VICENTE [facility] AGE: 71 Y [address] ROOM: [place] [address] LOCATION: GPCU ADMIT DATE: 10/24/2016 ER/Outpatient Report DISCHARGE DATE: FAMILY PHYSICIAN: PHYSICIAN, UNKNOWN ATTENDING PHYSICIAN: KLARISSA WELLER OPERATIONS: Colon resection, sinus surgeries, and cardiac catheterization with PTCA and stenting. REVIEW OF SYSTEMS: All systems reviewed by me are negative with the exception of those discussed in the history of present illness. PHYSICAL EXAMINATION: VITAL SIGNS: Temperature 98.2 tympanic, pulse 73 regular, respirations 32, blood pressure 100/62, and O2 saturation on 2 L of oxygen per nasal cannula is 96%. HEAD: Normocephalic. EYES: Extraocular muscles intact. PERRL. EARS: Clear TMs bilaterally. NOSE AND THROAT: Clear. Mucous membranes moist. NECK: No nuchal rigidity. No findings of adenopathy. No tenderness. SPINE: Negative. LUNGS: Decreased breath sounds diffusely. Coarse cough. Some rhonchi. No rales or wheezes. The patient is tachypneic. HEART: Regular. Pulses are palpable. ABDOMEN: Soft, nondistended, and nontender. Good bowel tones. No organomegaly or abnormal mass palpable. EXTREMITIES: Peripheral pitting edema. No cyanosis. No deformity. NEUROVASCULAR: Intact. SKIN: Clear. No skin eruptions or rash. DIAGNOSTIC DATA: Chest x-ray shows COPD, emphysema, some questionable increased perihilar changes. No acute lobar infiltrate. We will review chest x-ray with the radiologist. EKG shows sinus rhythm. No acute ST elevation. He has some moderate ST depression. No arrhythmia. LABORATORY DATA: White count was 11,600, 88 segs, 1 band, 4 lymphs, 4 monos, 1 eos, and 2 baso. Hemoglobin is 13.1, hematocrit is 38.6, and platelet count is 228,000. PTT is 28, pro-time is 10 with an INR of 0.95. CMS was normal except for an elevated glucose of 102. Magnesium was 2.1. CPK was normal at 48. CK-MB was elevated 6.6. Troponin was normal less than 0.04. CRP was 1.05. TSH was elevated at 46. ProBNP was 121. Venous pH was 7.38. D-dimer was normal at 0.37. I did give the patient 4 baby aspirin orally in the emergency department. Did give him Solu-Medrol 125 mg IV in the emergency room and gave him DuoNeb PATIENT'S NAME: ELVIS VICENTE [facility] AGE: 71 Y [address] ROOM: [facility] [place] [address] [facility] ADMIT DATE: 10/24/2016 ER/Outpatient Report DISCHARGE DATE: FAMILY PHYSICIAN: PHYSICIAN, UNKNOWN ATTENDING PHYSICIAN: KLARISSA WELLER respiratory nebulizer treatments in the emergency department. IMPRESSION: 1. Exacerbation of chronic obstructive pulmonary disease, emphysematous type. Most likely, the patient has some acute hypoxic respiratory failure, accompanied his exacerbation. He is O2 dependent. 2. Atherosclerotic ischemic heart disease with coronary artery disease, status post non-ST elevation myocardial infarction with recent catheterization and stent placement. He does have an elevated CK-MB with normal troponin and CPK. We will follow cardiac enzymes. 3. Hypothyroidism with TSH elevation of 46.10. 4. Tobacco abuse. 5. Hypertension. 6. Benign prostatic hypertrophy with past history of urine retention. 7. Paroxysmal atrial fibrillation. PLAN: Discussed the patient with Dr. Weller, hospitalist. The patient will be admitted to the hospital PCU telemetry for further evaluation and treatment. Discussion ensued with the patient concerning my findings and recommendations, he understands. Accumulated critical care time, 30 minutes. MD ELADIA LARA/modl /[id number] d: 10/24/16 2304 t: 10/25/16 0533, OUTPATIENT REPORT
[~2016-10-24 18:12] MED LIST changes: -DELTASONE20 MG PO; -LEVAQUIN750 MG PO; -LEVOTHROID(SYN75 MCG PO; -PROVENTIL OR V6.7 GM INH; -PULMOZYME1 AMP INH; -[UNRECOGNIZED DRUG - OTHER] PO
[2016-10-24 18:34] LABS: BICARBONATE 36.7 mmol/L (18.0-23.0); HEMATOCRIT 38.6 % (37.0-53.0); HEMOGLOBIN 13.1 g/dL (11.0-16.0); MCH 33.5 pg (27.0-34.0); MCHC 33.9 gm/dL (32.0-36.5); MCV 98.7 fl (83.0-98.0); MPV 9.8 fl (9.4-12.4); PCO2 62 mmHg (35-45); PLATELET COUNT 228 K/uL (150-450); PO2 27 mmHg (80-90); RBC 3.91 M/uL (3.50-5.50); RDW-CV 14.2 % (11.9-14.6); WBC 11.6 K/uL (4.0-11.0)
[2016-10-24 18:43] LABS: INR - (THERAPEUTIC) 0.95 (0.92-1.07); PTT 28 SECONDS (25-32)
[2016-10-24 18:57] LABS: ALBUMIN 3.4 gm/dL (3.5-5.0); ALK PHOS 97 IU/L (33-138); ALT 39 IU/L (12-78); ANION GAP 11.6 (10.0-19.0); AST 23 IU/L (10-40); BLOOD UREA NITROGEN 15 mg/dL (6-24); CALCIUM 8.6 mg/dL (8.5-10.5); CHLORIDE 99 mMol/L (96-110); CO2 30 mMol/L (22-32); CPK 48 IU/L (35-332); CREATININE 0.9 mg/dL (0.6-1.3); MAGNESIUM 2.1 mg/dL (1.8-2.6); POTASSIUM 4.6 mMol/L (3.7-5.1); SODIUM 136 mMol/L (135-145); TOTAL BILIRUBIN 0.6 mg/dL (0.0-1.5); TOTAL PROTEIN 6.6 g/dL (6.0-8.4)
[2016-10-24 19:07] LABS: ABSOLUTE NEUTROPHIL CT (ANC) 10.3 K/uL (1.4-9.0); BANDED NEUTROPHIL # 0.1 K/uL (0.0-0.1); BANDED NEUTROPHILS % 1 %; LYMPHOCYTE # 0.5 K/uL (0.8-4.0); LYMPHOCYTE % 4 %; MONOCYTE # 0.5 K/uL (0.0-1.0); SEGMENTED NEUTROPHIL # 10.2 K/uL (1.4-9.0); SEGMENTED NEUTROPHIL % 88 %
[2016-10-24 20:54] LABS: CPK 33 IU/L (35-332)
[2016-10-24] MEDS ORDERED: [UNRECOGNIZED DRUG - OTHER] PO (22:38)
[2016-10-25 02:19] LABS: HEMATOCRIT 34.8 % (37.0-53.0); HEMOGLOBIN 11.4 g/dL (11.0-16.0); MCH 32.3 pg (27.0-34.0); MCHC 32.8 gm/dL (32.0-36.5); MCV 98.6 fl (83.0-98.0); MPV 9.9 fl (9.4-12.4); PLATELET COUNT 204 K/uL (150-450); RBC 3.53 M/uL (3.50-5.50); RDW-CV 14.2 % (11.9-14.6); WBC 7.7 K/uL (4.0-11.0)
[2016-10-25 02:41] LABS: ANION GAP 11.3 (10.0-19.0); CALCIUM 8.2 mg/dL (8.5-10.5); POTASSIUM 4.3 mMol/L (3.7-5.1)
[2016-10-25 03:46] LABS: ABSOLUTE NEUTROPHIL CT (ANC) 7.7 K/uL (1.4-9.0); BANDED NEUTROPHIL # 0.5 K/uL (0.0-0.1); BANDED NEUTROPHILS % 6 %; SEGMENTED NEUTROPHIL # 7.2 K/uL (1.4-9.0); SEGMENTED NEUTROPHIL % 94 %
[2016-10-25 03:54] LABS: LYMPHOCYTE % 0 %
[2016-10-25 04:31] LABS: PCO2 45 mmHg (35-45); PO2 59 mmHg (80-90)
[2016-10-27 04:43] LABS: BASOPHIL % 0.1 %; HEMOGLOBIN 11.2 g/dL (11.0-16.0); IMMATURE GRANULOCYTE # 0.2 K/uL (0.0-0.3); IMMATURE GRANULOCYTE % 1.2 %; LYMPHOCYTE # 0.5 K/uL (0.8-4.0); MCH 32.6 pg (27.0-34.0); MCHC 32.9 gm/dL (32.0-36.5); MCV 98.8 fl (83.0-98.0); MONOCYTE # 0.9 K/uL (0.0-1.0); MONOCYTE % 5.4 %; MPV 9.8 fl (9.4-12.4); NEUTROPHIL # (ANC) 15.4 K/uL (1.4-9.0); NEUTROPHIL % 90.3 %; NRBC % 0 /100WBC (0-0.00); PLATELET COUNT 205 K/uL (150-450); RBC 3.44 M/uL (3.50-5.50); RDW-CV 14.6 % (11.9-14.6)
[2016-10-27 04:45] LABS: WBC 17.1 K/uL (4.0-11.0)
[2016-10-27 04:54] LABS: ANION GAP 8.9 (10.0-19.0); POTASSIUM 3.9 mMol/L (3.7-5.1)
[2016-10-31] MEDS ORDERED: LEVOTHROID(SYN75 MCG PO (12:13)
[2016-10-31] MEDS ORDERED: PULMOZYME1 AMP INH (12:22)
== END 2016-10-31 15:45 | disposition home health service (06) | DRG 190 ==
LOC: GMED 18:12 → GPCU 19:38
PROVIDERS: Emergency Medicine; ADMIT Internal Medicine
PROC: 5A09457 Assistance with Respiratory Ventilation, 24-96 Consecutive Hours, Continuous Positive Airway Pressure (ICD-10-PCS; principal; 2016-10-25)
DX: J44.1 Chronic obstructive pulmonary disease with (acute) exacerbation (principal); J96.21 Acute and chronic respiratory failure with hypoxia; E43 Unspecified severe protein-calorie malnutrition; J96.22 Acute and chronic respiratory failure with hypercapnia; Z68.1 Body mass index [BMI] 19.9 or less, adult; I10 Essential (primary) hypertension; Z51.5 Encounter for palliative care; I25.10 Atherosclerotic heart disease of native coronary artery without angina pectoris; E03.9 Hypothyroidism, unspecified; F17.200 Nicotine dependence, unspecified, uncomplicated; I25.2 Old myocardial infarction; N40.0 Benign prostatic hyperplasia without lower urinary tract symptoms; Z99.81 Dependence on supplemental oxygen; Z95.5 Presence of coronary angioplasty implant and graft; R94.6 Abnormal results of thyroid function studies; Z79.02 Long term (current) use of antithrombotics/antiplatelets; Z79.82 Long term (current) use of aspirin; Z79.52 Long term (current) use of systemic steroids; F41.9 Anxiety disorder, unspecified; G47.00 Insomnia, unspecified
CPT/HCPCS: G0237; G0424; J0696; J1650; J1940; J2060; J2270; J2920; J2930; J7512

== ENCOUNTER 2016-11-19 17:22 | Inpatient (IN) | payer MEDICARE, OTHER ==
[~2016-11-19] VITALS: Ht 185.4 cm; Wt 53.8 kg
--- NOTE | ~2016-11-19 | DS ---
PATIENT'S NAME: CINTHIA [facility] AGE: 71 Y [address] ROOM: [facility] [place], [place] [address] LOCATION: GPCU ADMIT DATE: 11/19/2016 Discharge Summary DISCHARGE DATE: 11/26/2016 FAMILY PHYSICIAN: Violetta Robin MD ATTENDING PHYSICIAN: Lora Lemus PRINCIPAL DIAGNOSES: 1. Gfgxu-rl-yltfhlj hypoxemic respiratory failure. 2. Chronic obstructive pulmonary disease exacerbation. SECONDARY DIAGNOSES: 1. History of coronary artery disease. 2. Essential hypertension. 3. History of paroxysmal atrial fibrillation. 4. Hypothyroidism. 5. Moderate protein-calorie malnutrition. 6. Dyslipidemia. HOSPITAL COURSE: Please reference any admitting data to the history and physical as dictated by Dr. Donnie Pablo. This is a 71-year-old male, who had increased shortness of breath with yellowish productive cough, who is dependent on oxygen at home, presented to the emergency room, and was found to have dzuea-yf-soibzbp hypoxemic respiratory failure. Chest x-ray did not show any obvious pneumonia. [place] [address] with a positive shift in his bands, so he was started on Levaquin. He was also started on an aggressive pulmonary regimen to include nebulizer treatments and pulmonary toilet. He was also given IV steroids. Further infectious workup was unrevealing. His white count did not resolve within 24 hours. He did not have any fevers. Solu- Medrol was converted to prednisone with tapering dose on November 21. He made little progress through the weekend and because of that, he had a CT scan of his chest and a pulmonology consultation. CT scan of his chest did not show any evidence of pulmonary embolism or any evidence of pneumonia. It did, however, confirmed severe COPD and emphysema. The patient did show progress, continued improvements, and was at his baseline oxygen needs. He felt stable for discharge on the day of November 26. The patient was kept on telemetry monitoring without any notable acute problems. We did maintain on otherwise home medications for his chronic conditions without any complication. DVT prophylaxis was maintained with heparin subcutaneous as well as pneumatic compression devices. We did provide nutritional support and dietary education. CONSULTING PROVIDERS: Dr. White of Pulmonology. [facility] 71 Y [address] ROOM: [id number] [place], [place] [address] LOCATION: GPCU ADMIT DATE: 11/19/2016 Discharge Summary DISCHARGE DATE: 11/26/2016 FAMILY PHYSICIAN: Violetta Robin MD ATTENDING PHYSICIAN: Lora Lemus RADIOLOGIC IMAGIN. Initial presenting chest x-ray shows severe emphysema with no signs or symptoms of pneumonia. 2. CT scan PE protocol, on 11/24, showed no pulmonary embolism and no evidence of pneumonia, however, it did show stable severe COPD and emphysema. LABORATORY DATA: Pertinent lab findings [place] [address] on initiation returning to normal 24 hours thereafter to 6.4, hemoglobin of 11.5, hematocrit of 32.9, and a platelet count of 189. Cardiac enzymes were negative. ProBNP was 212. Lactate was 1.0 and 1.4 respectively. Baseline arterial blood gases showed pH of 7.45, a pCO2 of 41, a PO2 of 116, and a bicarb of 28.5. Chemistry panel without any remarkable results most recently being on 11/22, showed a glucose of 133, a BUN of 16, and a creatinine 0.9. Sodium 136, potassium 4.1, chloride of 102, CO2 of 27, and calcium 8.0. Albumin of 2.5, phosphorus 1.6, magnesium 1.9. Urinalysis for strep and Legionella were negative. Procalcitonin level was less than 0.05. TSH was 33.80 and a free T4 was 0.9. Urinalysis showed yellow, 1+ turbid urine, with positive leukocytes, positive nitrites, positive protein with many bacteria. No culture was obtained. Blood culture showed no growth to date. Sputum culture was canceled due to contamination. DISCHARGE MEDICATIONS: 1. Aspirin 325 mg p.o. everyday. 2. Lipitor 20 mg p.o. every night at bedtime. 3. Plavix 75 mg p.o. everyday. 4. Cardizem 120 mg p.o. everyday. 5. Levofloxacin 750 mg p.o. every night at bedtime. Stop date 11/29/2016. This is a new prescription. 6. Levothyroxine 75 mcg p.o. everyday. 7. Protonix 40 mg p.o. everyday before breakfast. 8. Prednisone 20 mg p.o. everyday. Stop date 11/27, 799. PATIENT'S NAME: ELVIS VICENTE [facility] AGE: 71 Y [address] ROOM: [id number] [place], [place] [address] LOCATION: GPCU ADMIT DATE: 11/19/2016 Discharge Summary DISCHARGE DATE: 11/26/2016 FAMILY PHYSICIAN: Violetta Robin MD ATTENDING PHYSICIAN: Lora Lemus 9. Prednisone 10 mg p.o. everyday with food. Start date 11/28 at 0800. Stop date 11/30 at 0800. 10. Prednisone 5 mg p.o. everyday with food. Start date 12/01 at 0800 for 30 days. 11. Florastor 250 mg p.o. twice daily. 12. Aldactone 25 mg p.o. everyday. 13. Flomax 0.4 mg p.r.n. at bedtime. 14. Nitrostat 0.4 mg sublingual as needed for chest pain. 15. Benadryl 25-50 mg p.o. every 6 hours as needed for rash. 16. Donna Source one tablet p.o. twice daily. 17. Proventil HFA two puffs every 4 hours as needed for shortness of breath. DISCHARGE INSTRUCTIONS: The patient will be discharged to home. He will need follow up with his primary care provider, Dr. Aaron Ling at [place], within the next 2 weeks. He should also follow up with Dr. White, a blasting machine operator in three weeks. If his condition worsens, he is to be re-evaluated sooner. The above line of information was discussed with the patient, who stated complete understanding of the line of management and plan. All questions were answered with statements of satisfaction. Total time in discharge process is 35 minutes. Thank you for allowing us to participate in the care of this patient while at [facility]. ROSHNI BARNES APRN, APRN FOR MD ABDIEL CASTANEDA/sunday /[id number] d: t: 11/27/16 0410, DISCHARGE SUMMARY
--- NOTE | ~2016-11-19 | ER ---
PATIENT'S NAME: ELVIS JENKINS [facility] AGE: 71 Y [address] ROOM: [id number] [place], [place] [address] LOCATION: GPCU ADMIT DATE: 11/19/2016 ER/Outpatient Report DISCHARGE DATE: FAMILY PHYSICIAN: PHYSICIAN, UNKNOWN ATTENDING PHYSICIAN: LINDA LEUMS HISTORY OF PRESENT ILLNESS: Elvis Jenkins is a 71-year-old male, who was seen by Dr. Gregory. Please refer to his dictation. At 6:00 p.m. shift change, I assumed care. He presented with hypotension and shortness of breath. He said that his blood pressure has been low at home, less than 90. He has been lightheaded and dizzy with it, and then tonight he was more short of breath and had some chest pressure, discomfort. On arrival here to the emergency room, he did have lab work, EKG and a DuoNeb breathing treatment. When I am seeing the patient, his breathing treatment helped some. He said he feels a little bit less short of breath. He is on his usual 2 L of O2 and saturating 93%. His blood pressure initially on arrival was 162/76. When I went into the room to evaluate him, his blood pressure was 76/64 and had been 89/70. On recheck, it was 99 and then came up to 117/73, and did remain in the one-teens at that point. He had a low-grade temp of 99.3, so blood cultures had been obtained on arrival to the emergency room. PAST MEDICAL HISTORY: Reviewed and as per Dr. Gregory and previous records. PHYSICAL EXAMINATION: Confirmed. Blood pressure as noted above. LABORATORY DATA AND X-RAYS: The pH of 7.45, pCO2 of 41, pO2 of 116, O2 saturation 99% that was apparently drawn while he was getting his DuoNeb treatment. Sodium 139, potassium 3.8, chloride 103, CO2 of 30, BUN 13, creatinine 0.9, blood sugar 97. Liver enzymes normal. CPK 31, CK-MB 5.1, troponin I less than 0.040. ProBNP 212, CRP 6.78. TSH is 33.800, free T4 is 0.9. He does not believe that he has gotten his thyroid medicine from the [place] since he was discharged here on October 31. Hemoglobin 13.6, hematocrit 39.6, white count 12.0, 87% segs, 8% bands, platelets 220. INR 0.96. Chest x-ray: Changes with COPD, no acute infiltrate, pending Radiology over- read. EKG revealed sinus tachycardia, 114 beats per minute. No acute ST elevation or depression. EMERGENCY DEPARTMENT COURSE: PATIENT'S NAME: ELVIS JENKINS [facility] AGE: 71 Y [address] ROOM: [place] [address] [facility] AD[facility] DATE: 11/19/2016 ER/Outpatient Report DISCHARGE DATE: FAMILY PHYSICIAN: PHYSICIAN, UNKNOWN ATTENDING PHYSICIAN: LINDA LEMUS The patient was initiated on normal saline at 150 mL/h. IMPRESSION: 1. Chronic obstructive pulmonary disease exacerbation. 2. Hypotension. 3. Hypothyroidism with elevated TSH. PLAN: For observation, admission per Dr. Lemus, hospitalist. KENNEDY MOODY MD CAR/modl /[id number] d: 11/20/16 0324 t: 11/21/16 0149, OUTPATIENT REPORT
--- NOTE | ~2016-11-19 | HP ---
PATIENT'S NAME: CINTHIA [facility] AGE: 71 Y [address] ROOM: [place] [address] LOCATION: GPCU ADMIT DATE: 11/19/2016 History & Physical DISCHARGE DATE: FAMILY PHYSICIAN: PHYSICIAN, UNKNOWN ATTENDING PHYSICIAN: LINDA HARKINS DATE OF SERVICE: CHIEF COMPLAINT: Shortness of breath and yellowish productive cough. HISTORY OF PRESENT ILLNESS: This is a 71-year-old male with a history of very severe COPD GOLD stage IV with home oxygen dependent 2 L 24/7. The story is that for the last few days, the patient has been having this worsening shortness of breath, and also yellowish productive cough, but he denies any fever or chills and he came here for evaluation. At baseline, he has COPD. He wears 2 L oxygen 24/7 and on a daily basis he does have a whitish color phlegm with daily productive cough, but for the last few days, the cough has become yellow and also he has been having worsening shortness of breath. Otherwise, he denies any other symptoms. REVIEW OF SYSTEMS: As mentioned in history of present illness. All other systems were reviewed and were negative except those mentioned in the history of present illness. PAST MEDICAL HISTORY: 1. COPD on 2 L oxygen nasal cannula 24/7. 2. Coronary artery disease, status post stent placed to the circumflex in August 2016. 3. Hypertension. 4. Paroxysmal atrial fibrillation. 5. Hypothyroidism. ALLERGIES: IBUPROFEN, CEFUROXIME, AZITHROMYCIN, AND AMOXICILLIN. HOME MEDICATIONS: Currently has been reconciled. SOCIAL HISTORY: The patient was a former cigarette smoker for many, many, many years and the patient just recently quit smoking in August 2016. The patient denies any alcohol or any illegal drug use. PATIENT'S NAME: [facility] AGE: 71 Y [address] ROOM: [address] [address] LOCATION: GPCU ADMIT DATE: 11/19/2016 History & Physical DISCHARGE DATE: FAMILY PHYSICIAN: PHYSICIAN, UNKNOWN ATTENDING PHYSICIAN: LINDA HARKINS PAST SURGICAL HISTORY: 1. History of colon resection in the past. 2. Status post cardiac stent x1 in August 2016. FAMILY HISTORY: The patient denies any cardiac or pulmonary problem in both parents. PHYSICAL EXAMINATION: VITAL SIGNS: At the time of my evaluation, temperature 98.4, heart rate 92, respirations 18, blood pressure 122/75, and saturation 96% on 2 L nasal cannula. GENERAL APPEARANCE: Alert and oriented x3. Currently, in no acute distress. HEENT: Pupils equally round and reactive to light. Extraocular muscles intact. Anicteric sclerae. Nasal turbinates are normal bilaterally. Moist oral mucosa. NECK: No JVD. CARDIOVASCULAR: Regular rate and rhythm. Normal S1, S2. No murmur. No rubs, no gallops. RESPIRATORY: Decreased breath sounds diffusely. No obvious rales, rhonchi, wheezing, or crackles. ABDOMEN: Soft, nontender, nondistended, bowel sounds present. No mass. EXTREMITIES: No edema in upper or lower extremities. NEUROLOGIC: Grossly nonfocal. SKIN: No ulcer. No rash. No cyanosis. IMAGING STUDIES: Chest x-ray on admission showed severe emphysema without significant change. ASSESSMENT AND PLAN: 1. Regarding his acute on chronic hypoxemic respiratory failure secondary to chronic obstructive pulmonary disease exacerbation: No obvious pneumonia based on the chest x-ray. However, for every chronic obstructive pulmonary disease exacerbation, we will be treating with protocol with antibiotics. I will be using p.o. Levaquin. I will also be treating him with IV Solu-Medrol and also nebulization with DuoNeb and albuterol and also use incentive spirometry. We will also keep him on oxygen, titrate for saturation more than 88%. We will also be checking urine antigen for Legionella and pneumococcus. Also, check a sputum culture Gram stain. Blood culture 2 sets. Further plan will depend on clinical course. Blood cultures were already obtained. 2. Regarding his history of coronary artery disease: Continue home medication with dual anti-platelet therapy. Home medication currently has been reconciled. No active issue. 3. Hypertension: Hold off on the blood pressure medication in the setting of chronic obstructive pulmonary disease exacerbation. Can always resume PATIENT'S NAME: ELVIS VICENTE [facility] AGE: 71 Y [address] ROOM: [place] [address] [facility]: 11/19/2016 History & Physical DISCHARGE DATE: FAMILY PHYSICIAN: PHYSICIAN, UNKNOWN ATTENDING PHYSICIAN: LINDA HARKINS if necessary. However, I will continue the home Cardizem with holding parameter due to history of paroxysmal atrial fibrillation. 4. Regarding history of paroxysmal atrial fibrillation: Currently, in sinus rhythm on telemetry. No active issue. Continue Cardizem with holding parameter. 5. Regarding his hypothyroidism: Continue the home dose. Currently, he is taking 75 mcg levothyroxine. His TSH was recently checked, therefore, no dose will be adjusted for now. 6. He will get heparin subcutaneous for deep venous thrombosis prophylaxis. Time spent in care on the day of admission 35 minutes, where 15 minutes was spent on chart review, and the remainder of the time was spent on interview, physical examination, and also on counseling. Counseling including going over plan of care with the patient and also addressing all the questions and concerns the patient had, and also went over the plan of care with the patient and answered all his questions to his satisfaction. Further plan will depend on clinical course. This time also includes going over the plan of care with the nurse. MD TAY CORTÉS/sunday /[id number] D: T: [id number] HISTORY & PHYSICAL
--- NOTE | ~2016-11-19 | ER ---
PATIENT'S NAME: ELVIS JENKINS [facility] AGE: 71 Y [address] ROOM: [place] [address] LOCATION: GPCU ADMIT DATE: 11/19/2016 ER/Outpatient Report DISCHARGE DATE: FAMILY PHYSICIAN: PHYSICIAN, UNKNOWN ATTENDING PHYSICIAN: LINDA HARKINS CHIEF COMPLAINT: Difficulty breathing. HISTORY OF PRESENT ILLNESS: Mr. Jenkins presents by private vehicle for evaluation of difficulty breathing and low blood pressures. Mr. Jenkins has an extensive history of poorly controlled COPD and multiple hospitalizations. He states his blood pressures have been very low today since yesterday afternoon and morning. He states his blood pressures have been in the 90s on his top number, which is very low for him, thus making him tired and making him hard to breathe. He states he has been taking all of his medications the way he is supposed to. He states he did quit smoking at the first of August. No other acute symptoms today. The patient denies any chest pain. He does have a significant history of heart disease. No other acute issues. PAST MEDICAL HISTORY: Documented on the record and reviewed by me. SOCIAL HISTORY: Documented on the record and reviewed by me. MEDICATIONS: Documented on the record and reviewed by me. ALLERGIES: DOCUMENTED ON THE RECORD AND REVIEWED BY ME. REVIEW OF SYSTEMS: All systems reviewed and negative except as noted in the HPI. PHYSICAL EXAMINATION: VITAL SIGNS: Blood pressure is 162/76, pulse 118, respiratory rate is 22, temperature 99.3, and SpO2 is 93% on room air. Pain is rated at 3 to 5 out of 10, which is his kind of baseline with a COPD. GENERAL: Age-appropriate male, frail appearance, poor color, pursed lip breathing. No apparent distress. Speaking in full sentences. NEUROLOGIC: Awake and alert. GCS appears to be 15. Generally weak and frail, but no focal deficits. HEENT: Normocephalic, atraumatic. Eyes are PERRL. Oropharynx is clear PATIENT'S NAME: ELVIS JENKINS [facility] AGE: 71 Y [address] ROOM: [place] [address] LOCATION: GPCU ADMIT DATE: 11/19/2016 ER/Outpatient Report DISCHARGE DATE: FAMILY PHYSICIAN: PHYSICIAN, UNKNOWN ATTENDING PHYSICIAN: LINDA HARKINS grossly. NECK: Supple. Trachea is midline. CHEST: Poor air entry bilateral with occasional wheezes and crackles. Heart is tachycardic, and heart sounds are muffled somewhat by pulmonary sounds. ABDOMEN: Soft, nontender, nondistended. BACK: Normal to inspection and palpation. EXTREMITIES: Thin, emaciated, but well formed. No obvious abnormalities. No edema or erythema. SKIN: Appears to be grossly intact. LABORATORY DATA AND X-RAYS: EKG was obtained, it is notable for sinus tachycardia with no significant morphologic changes compared to prior. Labs are otherwise pending. IMPRESSION: Difficulty breathing and reports of hypotension. EMERGENCY DEPARTMENT COURSE: The patient was seen and evaluated at bedside. Based on his history, DuoNeb was initiated. The patient was not hypoxic. He remains tachycardic of unclear etiology. The patient has a broad differential including ACS, COPD exacerbation, and pulmonary embolism as well as pneumonia. We will have Dr. Dumont, who received hand off at 1800 hours, complete the patient's evaluation and disposition accordingly. All questions were answered to the best of my ability prior to hand off. MD ISAURA BUTTS/sunday /[id number] d: 11/20/16 0937 t: 11/24/16 0750, OUTPATIENT REPORT
[~2016-11-19 17:22] MED LIST changes: +LEVOTHROID(SYN75 MCG PO; +PULMOZYME1 AMP INH; +[UNRECOGNIZED DRUG - OTHER] PO
[2016-11-19 17:59] LABS: BICARBONATE 28.5 mmol/L (18.0-23.0); PCO2 41 mmHg (35-45)
[2016-11-19 18:00] LABS: PO2 116 mmHg (80-90)
[2016-11-19 18:04] LABS: HEMATOCRIT 39.6 % (37.0-53.0); HEMOGLOBIN 13.6 g/dL (11.0-16.0); MCH 33.6 pg (27.0-34.0); MCHC 34.3 gm/dL (32.0-36.5); MCV 97.8 fl (83.0-98.0); MPV 9.8 fl (9.4-12.4); PLATELET COUNT 220 K/uL (150-450); RBC 4.05 M/uL (3.50-5.50)
[2016-11-19 18:12] LABS: INR - (THERAPEUTIC) 0.96 (0.92-1.07); PROTIME 10.1 SECONDS (9.8-11.4); PTT 28 SECONDS (25-32)
[2016-11-19 18:24] LABS: ALBUMIN 3.4 gm/dL (3.5-5.0); ALK PHOS 114 IU/L (33-138); ALT 26 IU/L (12-78); ANION GAP 9.8 (10.0-19.0); AST 16 IU/L (10-40); BLOOD UREA NITROGEN 13 mg/dL (6-24); CALCIUM 8.2 mg/dL (8.5-10.5); CHLORIDE 103 mMol/L (96-110); CO2 30 mMol/L (22-32); CPK 31 IU/L (35-332); CREATININE 0.9 mg/dL (0.6-1.3); POTASSIUM 3.8 mMol/L (3.7-5.1); SODIUM 139 mMol/L (135-145); TOTAL PROTEIN 6.6 g/dL (6.0-8.4)
[2016-11-19 18:25] LABS: TOTAL BILIRUBIN 0.8 mg/dL (0.0-1.5)
[2016-11-19 19:08] LABS: ABSOLUTE NEUTROPHIL CT (ANC) 11.4 K/uL (1.4-9.0); BANDED NEUTROPHILS % 8 %; LYMPHOCYTE # 0.1 K/uL (0.8-4.0); LYMPHOCYTE % 1 %; MONOCYTE # 0.5 K/uL (0.0-1.0); SEGMENTED NEUTROPHIL # 10.4 K/uL (1.4-9.0); SEGMENTED NEUTROPHIL % 87 %
[2016-11-20 07:23] LABS: BILIRUBIN URINE NEGATIVE (NEGATIVE); BLOOD URINE 25 /UL (NEGATIVE); COLOR URINE YELLOW (YELLOW); GLUCOSE URINE NEGATIVE (NEGATIVE); KETONE URINE 15 mg/dL (NEGATIVE); LEUKOCYTES URINE 25 /UL (NEGATIVE); NITRITE URINE POSITIVE (NEGATIVE); PROTEIN URINE 15 mg/dL (NEGATIVE); TURBIDITY URINE 1+ (CLEAR); UROBILINOGEN URINE NORMAL (NORMAL)
[2016-11-20 07:34] LABS: AMORPHOUS URINE 1+ (NEGATIVE); BACTERIA URINE MANY (NEGATIVE); EPITHELIAL URINE NEGATIVE #/HPF (NEGATIVE); MUCUS URINE 1+ (NEGATIVE)
[2016-11-20 08:05] LABS: HEMATOCRIT 33.9 % (37.0-53.0); HEMOGLOBIN 11.5 g/dL (11.0-16.0); MCH 33.6 pg (27.0-34.0); MCHC 33.9 gm/dL (32.0-36.5); MCV 99.1 fl (83.0-98.0); MPV 9.8 fl (9.4-12.4); RBC 3.42 M/uL (3.50-5.50); RDW-CV 13.8 % (11.9-14.6); WBC 6.4 K/uL (4.0-11.0)
[2016-11-20 08:18] LABS: ANION GAP 8.1 (10.0-19.0); CALCIUM 8.1 mg/dL (8.5-10.5); CREATININE 0.9 mg/dL (0.6-1.3); MAGNESIUM 1.9 mg/dL (1.8-2.6); POTASSIUM 4.1 mMol/L (3.7-5.1)
[2016-11-21 05:05] LABS: ALBUMIN 2.5 gm/dL (3.5-5.0); BLOOD UREA NITROGEN 12 mg/dL (6-24); CALCIUM 7.8 mg/dL (8.5-10.5); CHLORIDE 101 mMol/L (96-110); CO2 26 mMol/L (22-32); CREATININE 0.8 mg/dL (0.6-1.3); MAGNESIUM 1.9 mg/dL (1.8-2.6); PHOSPHORUS 1.6 mg/dL (2.5-4.9); SODIUM 134 mMol/L (135-145)
[2016-11-22 06:21] LABS: ANION GAP 11.1 (10.0-19.0); BLOOD UREA NITROGEN 16 mg/dL (6-24); CHLORIDE 102 mMol/L (96-110); CO2 27 mMol/L (22-32); CREATININE 0.7 mg/dL (0.6-1.3); POTASSIUM 4.1 mMol/L (3.7-5.1); SODIUM 136 mMol/L (135-145)
[2016-11-24 17:07] LABS: CREATININE 0.9 mg/dL (0.6-1.3)
[2016-11-26] MEDS ORDERED: LEVAQUIN750 MG PO (09:31)
[2016-11-26] MEDS ORDERED: DELTASONE20 MG PO (09:33)
[2016-11-26] MEDS ORDERED: PROVENTIL OR V6.7 GM INH (09:42)
== END 2016-11-26 11:35 | disposition disaster alternative care site (69) | DRG 190 ==
LOC: GMED 17:22 → GPCU 19:48
PROVIDERS: Emergency Medicine; Internal Medicine; ADMIT Internal Medicine
DX: J44.1 Chronic obstructive pulmonary disease with (acute) exacerbation (principal); J96.21 Acute and chronic respiratory failure with hypoxia; E44.0 Moderate protein-calorie malnutrition; E88.89 Other specified metabolic disorders; I48.0 Paroxysmal atrial fibrillation; Z99.81 Dependence on supplemental oxygen; I10 Essential (primary) hypertension; Z68.1 Body mass index [BMI] 19.9 or less, adult; E03.9 Hypothyroidism, unspecified; I25.10 Atherosclerotic heart disease of native coronary artery without angina pectoris
CPT/HCPCS: J1644; J2930; J7030; J7512